=== PATIENT | male | born 1955 | race African-American/Black ===

== ENCOUNTER 2020-07-04 15:48 | Outpatient (REF) | payer MEDICARE, SELFPAY | END 2020-07-04 15:49 | disposition home or self-care (01) | LOC: HO.LAB 15:48 | PROVIDERS: Visit Provider Internal Medicine | DX: Z20.828 Contact with and (suspected) exposure to other viral communicable diseases (principal) | CPT/HCPCS: C9803; U0003 ==

== ENCOUNTER 2022-06-21 09:43 | Outpatient (REF) | payer OTHER, SELFPAY ==
[2022-06-21 10:12] LABS: Estimated Average Glucose 143 mg/dL; Hemoglobin A1c % 6.6 %
== END 2022-06-21 09:44 | disposition home or self-care (01) ==
LOC: HO.LAB 09:43
PROVIDERS: PCP Hospitalist; Visit Provider Hospitalist
DX: E11.8 Type 2 diabetes mellitus with unspecified complications (principal)
CPT/HCPCS: 36415; 83036

== ENCOUNTER 2022-06-28 09:53 | Outpatient (REF) | payer OTHER, SELFPAY ==
[2022-06-28 10:41] LABS: Estimated Average Glucose 143 mg/dL; Hemoglobin A1c % 6.6 %
[2022-06-28 11:08] LABS: Prostate Specific Antigen 1.34 ng/mL (<0.05-4.0)
== END 2022-06-28 09:54 | disposition home or self-care (01) ==
LOC: HO.LAB 09:53
PROVIDERS: PCP Hospitalist; Visit Provider Hospitalist
DX: Z12.5 Encounter for screening for malignant neoplasm of prostate (principal); E11.8 Type 2 diabetes mellitus with unspecified complications
CPT/HCPCS: 36415; 83036; 84153

== ENCOUNTER 2022-07-26 09:03 | Outpatient (REF) | payer OTHER, SELFPAY ==
[2022-07-26 09:25] LABS: MANUAL DIFF FLAG NO
[2022-07-26 10:06] LABS: Basophils Percent Auto 0.4 % (0-2); Eosinophils Absolute Auto 0.1 X10*3/uL (0.0-0.4); Eosinophils Percent Auto 1.3 % (0-4); Hematocrit 45.7 % (42.0-52.0); Hemoglobin 15.3 g/dl (14.0-18.0); Imm Gran Abs Auto 0.01 X10*3/uL (0.00-0.03); Imm Gran Pct Auto 0.2 % (0.0-0.4); Lymphocytes Absolute Auto 1.7 X10*3/uL (1.2-4.9); Mean Corpuscular HGB Conc 33.5 g/dl (31.0-36.0); Mean Corpuscular Hemoglobin 28.5 pg (27.0-33.0); Mean Corpuscular Volume 85.1 fL (80.0-98.0); Mean Platelet Volume 9.9 fL (9.4-12.4); Monocytes Absolute Auto 0.5 X10*3/uL (0.1-1.2); Monocytes Percent Auto 10.4 % (2-11); Neutrophils Absolute Auto 2.3 x10*3/uL (2.0-8.3); Neutrophils Percent Auto 49.7 % (45-73); Platelet Count 229 X10*3/uL (160-400); Red Blood Count 5.37 X10*6/uL (4.60-5.80); Red Cell Distribution Width 13.1 % (11.0-16.0); White Blood Count 4.5 X10*3/uL (4.8-10.8)
[2022-07-26 10:14] LABS: Appearance Urine Clear; Color Urine Yellow; Glucose Urine UA Negative (Negative); Leukocyte Esterase Urine Negative (Negative); Nitrite Urine Negative (Negative); PH 5.5 (5.0-9.0); Specific Gravity - Urine 1.025 (1.005-1.025); Urine Blood Negative (Negative); Urine Ketones Trace mg/dL (Negative); Urine Protein Negative (Neg-Trace)
[2022-07-26 11:08] LABS: Alanine Aminotransferase 22 U/L (0-40); Albumin Level 4.4 g/dL (3.5-5.0); Alkaline Phosphatase 69 U/L (39-117); Anion Gap 14 (12-20); Aspartate Amino Transferase 19 U/L (5-37); Bilirubin Total 0.7 mg/dL (0.0-1.0); Blood Urea Nitrogen 21 mg/dL (9-16); Calcium 9.9 mg/dL (8.4-10.2); Carbon Dioxide 27 mmol/L (22-29); Chloride 103 mmol/L (96-108); Cholesterol 112 mg/dL; Estimated Glomerular Filt Rate > 60; Glucose Random 117 mg/dL (60-115); HDL Cholesterol 31 mg/dL; LDL Cholesterol Calculated 56 mg/dl; Potassium 3.9 mmol/L (3.3-5.1); Prostate Specific Antigen 2.07 ng/mL (<0.05-4.0); Sodium 140 mmol/L (135-145); Total Protein 6.9 g/dL (6.5-8.0); Triglycerides 128 mg/dL
== END 2022-07-26 09:04 | disposition home or self-care (01) ==
LOC: HO.LAB 09:03
PROVIDERS: PCP Hospitalist; Visit Provider Nurse Practitioner Adult Health
DX: Z00.00 Encounter for general adult medical examination without abnormal findings (principal); E78.2 Mixed hyperlipidemia; I10 Essential (primary) hypertension; Z12.5 Encounter for screening for malignant neoplasm of prostate
CPT/HCPCS: 36415; 80053; 80061; 81003; 84153; 85025

== ENCOUNTER → 2022-10-06 15:28 | Outpatient (BNVA) | payer OTHER, SELFPAY | PROVIDERS: PCP Hospitalist; Visit Provider Nurse Practitioner Family | DX: Z12.11 Encounter for screening for malignant neoplasm of colon (principal) | CPT/HCPCS: 99202 ==

== ENCOUNTER 2023-01-10 09:11 | Outpatient (REF) | payer OTHER, SELFPAY ==
[2023-01-10 09:54] LABS: Estimated Average Glucose 137 mg/dL; Hemoglobin A1c % 6.4 %
[2023-01-10 10:15] LABS: Alanine Aminotransferase 25 U/L (0-40); Albumin Level 4.2 g/dL (3.5-5.0); Alkaline Phosphatase 77 U/L (39-117); Anion Gap 12 (12-20); Aspartate Amino Transferase 17 U/L (5-37); Bilirubin Total 0.7 mg/dL (0.0-1.0); Blood Urea Nitrogen 17 mg/dL (9-16); Calcium 9.5 mg/dL (8.4-10.2); Carbon Dioxide 26 mmol/L (22-29); Chloride 107 mmol/L (96-108); Cholesterol 112 mg/dL; Estimated Glomerular Filt Rate > 60; Glucose Random 127 mg/dL (60-115); HDL Cholesterol 31 mg/dL; LDL Cholesterol Calculated 54 mg/dl; Potassium 3.7 mmol/L (3.3-5.1); Sodium 141 mmol/L (135-145); Total Protein 6.9 g/dL (6.5-8.0); Triglycerides 137 mg/dL
[2023-01-10 10:30] LABS: Prostate Specific Antigen Scr 2.58 ng/mL (<0.05-4.0)
[2023-01-10 10:44] LABS: Creatinine Urine 195.35 mg/dL; Microalbum/Creatinine Ratio Ur 7.1 ug/mg cr
== END 2023-01-10 09:12 | disposition home or self-care (01) ==
LOC: HO.LAB 09:11
PROVIDERS: PCP Hospitalist; Visit Provider Hospitalist
DX: Z12.5 Encounter for screening for malignant neoplasm of prostate (principal); I10 Essential (primary) hypertension; E78.2 Mixed hyperlipidemia; E11.8 Type 2 diabetes mellitus with unspecified complications
CPT/HCPCS: 36415; 80053; 80061; 82043; 83036; 84153

== ENCOUNTER 2023-02-13 10:06 | Day surgery (SDC) | payer OTHER, SELFPAY ==
[2023-02-11 15:34] VITALS: BMI 29.8
--- NOTE | 2023-02-12 10:06 | HO.ANESPROP2 ---
HPI - Anesthesia Eval Consult details Narrative: 68yo M for Colonoscopy [facility] Past Medical History Medical History (Updated 02/11/23 @ 15:42 by Edith Donohue, RN) Diabetes mellitus, type II Glaucoma HTN (hypertension) Hyperlipidemia Family History Family History (Updated 10/06/22 @ 15:47 by Sonido Sal) Mother HTN (hypertension) High cholesterol Diabetes Pacemaker Surgical History Surgical History (Updated 10/06/22 @ 15:49 by Sonido Sal) History of surgical procedure on eye proper using laser Social History Social History (Updated 10/06/22 @ 15:45 by Sonido Sal) Household Members: Significant Other Alcohol intake: never Patient Tobacco Use Status: Never used Tobacco Meds Allergies Allergy/AdvReac Type Severity Reaction Status Date / Time No Known Allergies Allergy Verified 10/06/22 15:42 Home Medications Medication Instructions Recorded Confirmed Last Taken Type amlodipine 10 mg tablet 10 mg PO DAILY 10/06/22 Unknown History chlorthalidone 25 mg tablet 25 mg PO DAILY 10/06/22 Unknown History dulaglutide 1.5 mg/0.5 mL mg subcut 10/06/22 Unknown History subcutaneous pen injector (Trulicity) flash glucose sensor (FreeStyle #1 ea 10/06/22 Unknown History Marleen 2 Sensor kit) glimepiride 2 mg tablet 2 mg PO DAILY 10/06/22 Unknown History lisinopril 40 mg tablet 40 mg PO DAILY 10/06/22 Unknown History metformin 1,000 mg tablet 1,000 mg PO BID 10/06/22 Unknown History simvastatin 20 mg tablet 20 mg PO BEDTIME 10/06/22 Unknown History Exam Exam Date and Time: February 12, 2023 1006 Height,Weight and Vital Signs: Height 5 ft 8 in Weight 88.791 kg Pertinent Lab Results Pertinent Lab Results: Laboratory Tests 07/26/22 01/10/23 09:18 09:25 WBC 4.5 L Hgb 15.3 Hct 45.7 Plt Count 229 Sodium 141 Potassium 3.7 Chloride 107 Carbon Dioxide 26 BUN 17 H Creatinine 1.09 Assessment and Plan Assessment Anesthesia Assessment: Chart Reviewed
--- NOTE | 2023-02-13 10:32 | HO.ANESPROP2 ---
[facility] Past Medical History Medical History Diabetes mellitus, type II Glaucoma HTN (hypertension) Hyperlipidemia Family History Family History Mother HTN (hypertension) High cholesterol Diabetes Pacemaker Family history of problems with anesthesia: No Surgical History Surgical History History of surgical procedure on eye proper using laser History of Problems with Anesthesia: No Social History Social History Household Members: Significant Other Alcohol intake: never Patient Tobacco Use Status: Never used Tobacco Advance Directives: No Advance Directives Information Provided: Yes Meds Allergies Allergy/AdvReac Type Severity Reaction Status Date / Time No Known Allergies Allergy Verified 10/06/22 15:42 Active Medications: Current Medications Lactated Ringer's (Lr) 1,000 mls @ 100 mls/hr IVCONT .Q10H SUREKHA Ondansetron HCl (Ondansetron Hcl 4 Mg/2 Ml Vial) 4 mg IVPUSH ONCE PRN PRN Reason: Nausea and Vomiting Home Medications Medication Instructions Recorded Confirmed Last Taken Type amlodipine 10 mg tablet 10 mg PO DAILY 10/06/22 Unknown History chlorthalidone 25 mg tablet 25 mg PO DAILY 10/06/22 Unknown History dulaglutide 1.5 mg/0.5 mL mg subcut 10/06/22 Unknown History subcutaneous pen injector (Trulicity) flash glucose sensor (FreeStyle #1 ea 10/06/22 Unknown History Marleen 2 Sensor kit) glimepiride 2 mg tablet 2 mg PO DAILY 10/06/22 Unknown History lisinopril 40 mg tablet 40 mg PO DAILY 10/06/22 Unknown History metformin 1,000 mg tablet 1,000 mg PO BID 10/06/22 Unknown History simvastatin 20 mg tablet 20 mg PO BEDTIME 10/06/22 Unknown History Exam Exam Date and Time: February 13, 2023 1032 Height,Weight and Vital Signs: Height 5 ft 8 in Weight 88.791 kg Airway Mallampati Class: III TM Dist: >3cm Neck ROM: Full Loose/Missing/Broken Teeth: No Heart: rrr Lungs: clear Assessment and Plan Final Anesthetic Review Family History of Problems with Anesthesia: No History of Problems with Anesthesia: No NPO: Yes ASA Class: II Final Preanesthetic Review: No Changes in Pt Med Stat, Meds/Allgs Chart Reviewed, Consent Obtained/Reviewed and Anes Risks/Benef Reviewed Patient Risk: Intermediate Procedure Risk: Low Anesthetic Plan Anesthetic Plan: MAC: Disposition: Standard PACU
--- NOTE | 2023-02-13 10:53 | MHC.SHP ---
Pre-Procedural Eval Section A Date of Service: 02/13/23 The patient is an INPATIENT: No The History & Physical has been completed within 30 days and I have reviewed it.: No Section B Chief Complaint: screening Relevant Family History (Specify if Yes): No Relevant Social History: None Present Medications: see Short Stay Collaborative assessment Medical History: Significant History ( hypertension, hyperlipidemia, glaucoma, diabetes mellitus) History of Previous Operations: Relevant previous surgery/procedure and date(s) ( history of eye surgery) Allergies: Allergies Allergy/AdvReac Type Severity Reaction Status Date / Time No Known Allergies Allergy Verified 10/06/22 15:42 Review of Systems Sugical H&P ROS: Negative: Constitution, Cardiovascular, Respiratory and Gastrointestinal Exam Surgical H&P Exam: Normal: Heart, Normal: Lungs, Normal: Extremities and Normal: Abdomen Plan Diagnosis/Plan: Unchanged I have reviewed the history and physical and performed a pertinent physical examination on my patient. No changes have occurred unless specified. Time Spent With Patient Time: Total time managing care of this patient today ____ minutes.
[2023-02-13 10:58] VITALS: BP 111/69; PULSE 70; RESP 18; TEMP 36.6; O2SAT 96
--- NOTE | 2023-02-13 11:00 | W.PM.OPN ---
Operative Note Operative Note Date of Service: 02/13/23 Narrative: COLONOSCOPY TILL CECUM WITH SNARE POLYPECTOMY Pre-op diagnosis: colon cancer screening Post-op diagnosis:? colon polyps, diverticulosis, hemorrhoids Endoscopist:? Allen Plunkett MD Anesthesia:?MAC Consent: Indications for the procedure and potential complications of bleeding, perforation, reaction to medications and missed diagnosis were discussed with the patient and informed consent was obtained. Instrument: Olympus PCF H 190 L variable stiffness pediatric colonoscope Monitoring: Vital signs and clinical assessment, intermittent blood pressure monitoring, continuous EKG monitoring, Pulse oximetry and Carbon Dioxide monitoring were done throughout the procedure. Please see anesthesia flowsheet. Colon withdrawl time was 23 minutes. Procedure: The patient was placed in the left lateral decubitis position and pre-procedure medications were administered. After a digital rectal examination of the ano-rectum, the video colonoscope was inserted into the rectum and advanced through the colon to the cecum. The colonoscope was slowly withdrawn in a retrograde panoramic fashion and the colon mucosa was carefully examined including a retroflexed view of the rectum. Findings and interventions are described below. Procedure Difficulty: colon was long and there was some loop formation Findings: Terminal Ileum: Not evaluated Cecum: Normal Ascending Colon: A 2 cms sessile polyp in the distal ascending colon - removed with a hot snare Transverse Colon: A 2 cms sessile polyp in the proximal transverse colon - removed with a hot snare A 10 cms sessile polyp in the mid TC - removed with a hot snare. Descending Colon: Normal Sigmoid Colon: Moderate diverticulosis Rectum: A 15 to 18 mm sessile polyp in the distal rectum - removed with a hot snare Ano-rectum: Moderate internal hemorrhoids Colon preparation: Good after copious irrigation. Impression and Post Procedure Diagnosis: Colonoscopy Findings: Four medium sized polyps removed Moderate diverticulosis seen in the sigmoid colon Moderate hemorrhoids on retroflexed exam. Plan: Await pathology results Patient has an appointment on 02/25/23 in the GI Clinic with Marleni Agrawal FNP-BC. Repeat Colonoscopy interval based on path results - in 3 years if polyps are adenomatous and 10 years if polyps are hyperplastic (adult colonoscope for future colonoscopies). Above findings were reviewed with the patient and colon polyps and diverticulosis handouts were given in the discharge area
[2023-02-13 11:54] VITALS: BP 86/46; PULSE 73; RESP 20; TEMP 36.4; O2SAT 96
[2023-02-13 11:58] VITALS: BP 90/43; PULSE 68; RESP 20; O2SAT 96
[2023-02-13 12:03] VITALS: BP 85/43; PULSE 67; RESP 20; O2SAT 96
[2023-02-13 12:10] VITALS: BP 100/63; PULSE 82; RESP 20; TEMP 36.2; O2SAT 98
== END 2023-02-13 13:00 | disposition home or self-care (01) ==
PROVIDERS: PCP Hospitalist; Visit Provider Internal Medicine Gastroenterology
PROC: 0DJD8ZZ Inspection of Lower Intestinal Tract, Via Natural or Artificial Opening Endoscopic (ICD-10-PCS; CPT 45378; principal; 2023-02-13 11:50)
DX: Z12.11 Encounter for screening for malignant neoplasm of colon (principal); D12.2 Benign neoplasm of ascending colon; D12.3 Benign neoplasm of transverse colon; D12.8 Benign neoplasm of rectum; K57.30 Diverticulosis of large intestine without perforation or abscess without bleeding; K64.8 Other hemorrhoids; E11.9 Type 2 diabetes mellitus without complications; I10 Essential (primary) hypertension; E78.5 Hyperlipidemia, unspecified; Z79.85 Long-term (current) use of injectable non-insulin antidiabetic drugs; Z79.84 Long term (current) use of oral hypoglycemic drugs; Z79.899 Other long term (current) drug therapy
CPT/HCPCS: 45385; 45380; 82947; 88305

== ENCOUNTER 2023-02-25 16:10 | Outpatient (AMB) | payer OTHER, SELFPAY ==
[2023-02-25 16:15] VITALS: BP 107/57; PULSE 80; BMI 29.5
--- NOTE | 2023-02-25 16:15 | A.OFFVIS_ITS ---
Intake Vital Signs 02/25/23 16:15 Height 5 ft 8 in Weight 194 lb 0.108 oz BMI 29.5 BP 107/57 L Blood Pressure Location Lt brachial Position Sitting Pulse 80 Intake Visit Reasons: S/P [place] screening; Dr. Plunkett Intake Note: Don presents in office as a est.patient for a post-op for colo pt got it done 02.13.23 PT CC: pt reports having no concerns pt denies any other GI Issues [employer] Required: No Accompanied by: Self / Same As Patient Allergies No Known Allergies Allergy (Verified 02/25/23 16:15) HPI S/P [place] screening; Dr. Plunkett HPI Details LAST VISIT Screen for colon cancer Patient denies any GI, cardiac or respiratory symptoms.? Denies any issues with anesthesia in the past.? Denies any history of sleep apnea.? Scheduled for home sleep study test to rule out RAD. No history infectious diseases in the past or present.? On low-dose aspirin. ? No family or personal history of colon cancer or polyps.? Patient denies melena, hematochezia, unintentional weight loss or ribbon like stools.? Discussed at length the pre-procedure,? prep, diet & medications as well as what to expect prior, during and after the procedure.?? Stressed the importance of good bowel prep. ?Recommended the use of Vaseline or Calmoseptine OTC & baby wipes with bowel movements to promote comfort.? ?Patient verbalizes understanding and agrees to plan of care.?He was given the opportunity to ask questions and all questions answered.? We will see him after the procedure.? Plan Medications New bisacodyl (Dulcolax (bisacodyl)) take 2 tabs at noon the day before your colonoscopy 10 mg (2 x 5 mg) PO ONCE 2 tabs 0RF 1 day Z12.11 polyethylene glycol 3350 (Miralax) As directed by gastroenterology department at [facility] 238 grams PO ONCE 238 grams 0RF Z12.11 COLONOSCOPY SCREENING Findings: Terminal Ileum: Not evaluated Cecum:? Normal Ascending Colon:? A 2 cms sessile polyp in the distal? ascending colon -? removed with a hot snare Transverse Colon:? A 2 cms sessile polyp in the proximal? transverse colon -? removed with a hot snare A 10 cms sessile polyp in the mid TC - removed with a hot snare. Descending Colon:? Normal Sigmoid Colon:? Moderate diverticulosis Rectum:? A 15 to 18 mm sessile polyp in the distal rectum - removed with a hot snare Ano-rectum:? Moderate internal hemorrhoids Colon preparation:? Good? after copious irrigation. Impression and Post Procedure Diagnosis: Colonoscopy Findings: Four medium sized polyps removed Moderate diverticulosis seen in the sigmoid colon Moderate hemorrhoids on retroflexed exam. Plan: Repeat Colonoscopy interval based on path results - in 3 years if polyps are adenomatous and 10 years if polyps are hyperplastic (adult colonoscope for future colonoscopies) PATHOLOGY RESULTS Diagnosis A.? Colon, ascending, polyp:? Tubular adenoma; negative for high-grade dysplasia and carcinoma.? B.? Colon, transverse, polyp:? Tubular adenoma; negative for high-grade dysplasia and carcinoma.? C.? Colon, rectal polyp:? Tubular adenoma; negative for high-grade dysplasia and carcinoma.? TODAY'S VISIT: Patient is here today for follow-up and to discuss colonoscopy results. Patient denies any ill effects from the, seizure or procedure. Reports to be feeling well. Denies any GI concerning symptoms. Patient has questions regarding diet. Diagnosed with diverticulosis, moderate internal hemorrhoids and for polyps. Biopsy showed all for tubular adenoma without high-grade dysplasia or carcinoma. Patient denies any melena, hematochezia, unintentional weight loss or ribbon like stools. Denies any dyspepsia, dysphagia or odynophagia. ON LICENSE OF [facility] Medical History (Updated 02/25/23 @ 18:28 by Marleni Agrawal, [facility]) Diabetes mellitus, type II Diverticulosis Glaucoma HTN (hypertension) Hyperlipidemia Internal hemorrhoids without complication Tubular adenoma Surgical History History of surgical procedure on eye proper using laser Hx of colonoscopy Family History Mother HTN (hypertension) High cholesterol Diabetes Pacemaker Social History Household Members: Significant Other Alcohol intake: never Patient Tobacco Use Status: Never used Tobacco Review of Systems Const Denies weight gain and Denies weight loss ENT Reports no additional complaints, Denies dysphagia and Denies odynophagia Card Reports no additional complaints Resp Reports no additional complaints GI Denies abdominal pain, Denies belching, Denies melena, Denies bloating, Denies change in bowel habits, Denies dysphagia, Denies excessive flatus, Denies dyspepsia, Denies heartburn, Denies diarrhea, Denies loose stools, Denies nausea, Denies odynophagia and Denies vomiting Reports no additional complaints Musc Reports no additional complaints Neuro Reports no additional complaints Psych Reports no additional complaints Endo Reports no additional complaints Physical Exam Vital Signs: Last Vital Signs Pulse 80 02/25/23 16:15 BP 107/57 L 02/25/23 16:15 BMI result Body Mass Index 29.5 Const General: healthy appearing, no acute distress and well developed Nutritional Appearance: obese Orientation/consciousness: patient oriented x3 HEENT Head: Yes normal to inspection, Yes normocephalic and Yes atraumatic Face and sinus: Yes normal facial exam Mouth: Normal oral and palatal mucosa present Throat: Yes posterior oropharynx normal, Yes tonsils normal and Yes uvula midline Eyes General: appearance normal, both eyes and all related structures Neck Neck: Yes normal visual inspection, Yes full ROM and Yes trachea midline Thyroid: Thyroid normal Resp Effort & Inspection: normal respiratory effort, able to speak in complete sentences, no tracheal deviation and symmetric chest movement Auscultation: clear to auscultation bilaterally Cardio Rate: regular rate Heart sounds: S1 normal heart sound present and S2 normal heart sound present GI Inspection: Yes normal to inspection, No distended and Yes obesity Palpation (GI): Soft to palpation, not firm, nontender and No hepatosplenomegaly present Auscultation: normal bowel sounds General: Yes no CVA tenderness Back/Spine/Pelvis Back: no CVA tenderness Skin General skin exam: elasticity normal, turgor normal and dry skin Neuro General: patient oriented x3 Psych Appearance: grossly normal Mental Status: mental status grossly normal Speech and movement: Normal speech and movement present Affect: normal affect Assessment & Plan Assessment & Plan (1) Internal hemorrhoids without complication: Code(s): K64.8 - Other hemorrhoids Plan: Moderate internal hemorrhoids. Patient denies any rectal pain, hematochezia. High-fiber diet, increase activity and fluid intake. Sitz baths as needed (2) Diverticulosis: Code(s): K57.90 - Diverticulosis of intestine, part unspecified, without perforation or abscess without bleeding Plan: Moderate diverticulosis of sigmoid colon. Patient will need to increase fiber in his diet. Went over high-fiber diet. List of food high in fiber given to patient. (3) Tubular adenoma: Code(s): D36.9 - Benign neoplasm, unspecified site Plan: Tubular adenoma found without high-grade dysplasia carcinoma. Patient will need to repeat colonoscopy in 3 years. (4) Status post colonoscopy: Code(s): Z98.890 - Other specified postprocedural states Plan: Patient denies any ill effects from the prep, anesthesia or procedure itself. Patient was found to have tubular adenoma without high-grade dysplasia or carcinoma. Colonoscopy in 3 years. High-fiber diet discussed with patient. Patient will follow-up with us on as needed basis. He is agreeable to this plan and verbalizes understanding of instructions. He was given the opportunity to ask questions and all questions answered. Thank you for allowing me to participate in his care Coding Level of Care Code Est Pt Level 3 (12854) Diagnoses Internal hemorrhoids without complication K64.8 Diverticulosis K57.90 Tubular adenoma D36.9 Status post colonoscopy Z98.890 Time Spent (min) 25 Comment 15 minutes spent with patient and additional 10 minutes spent reviewing his records
== END 2023-02-25 16:37 | disposition home or self-care (01) ==
PROVIDERS: Visit Provider Nurse Practitioner Family
DX: K64.8 Other hemorrhoids (principal); K57.90 Diverticulosis of intestine, part unspecified, without perforation or abscess without bleeding; D36.9 Benign neoplasm, unspecified site; Z98.890 Other specified postprocedural states
CPT/HCPCS: 99213

== ENCOUNTER → 2023-02-25 16:10 | Outpatient (BNVA) | payer OTHER, SELFPAY | PROVIDERS: Visit Provider Nurse Practitioner Family | DX: K64.8 Other hemorrhoids (principal); K57.90 Diverticulosis of intestine, part unspecified, without perforation or abscess without bleeding; D36.9 Benign neoplasm, unspecified site; Z98.890 Other specified postprocedural states | CPT/HCPCS: 99212 ==

== ENCOUNTER 2023-07-11 09:32 | Outpatient (REF) | payer OTHER, SELFPAY ==
[2023-07-11 10:27] LABS: Estimated Average Glucose 151 mg/dL; Hemoglobin A1c % 6.9 % (<6.0)
[2023-07-11 10:40] LABS: Creatinine Urine 141.85 mg/dL; Microalbum/Creatinine Ratio Ur 9.8 ug/mg cr (<30)
[2023-07-11 10:42] LABS: Alanine Aminotransferase 22 U/L (0-40); Albumin Level 4.4 g/dL (3.5-5.0); Alkaline Phosphatase 73 U/L (39-117); Anion Gap 12 (12-20); Aspartate Amino Transferase 16 U/L (5-37); Bilirubin Total 0.4 mg/dL (0.0-1.0); Blood Urea Nitrogen 17 mg/dL (9-16); Calcium 9.9 mg/dL (8.4-10.2); Carbon Dioxide 28 mmol/L (22-29); Chloride 104 mmol/L (96-108); Cholesterol 105 mg/dL (<200); Estimated Glomerular Filt Rate > 60; Glucose Random 109 mg/dL (60-115); HDL Cholesterol 33 mg/dL (>40); LDL Cholesterol Calculated 50 mg/dL (<100); Potassium 3.8 mmol/L (3.3-5.1); Sodium 140 mmol/L (135-145); Total Protein 7.4 g/dL (6.5-8.0); Triglycerides 110 mg/dL (<150)
== END 2023-07-11 09:33 | disposition home or self-care (01) ==
LOC: HO.LAB 09:32
PROVIDERS: Visit Provider Hospitalist
DX: E11.9 Type 2 diabetes mellitus without complications (principal); E78.2 Mixed hyperlipidemia; I10 Essential (primary) hypertension
CPT/HCPCS: 36415; 80053; 80061; 82043; 82570; 83036

== ENCOUNTER 2024-01-09 09:29 | Outpatient (REF) | payer OTHER, SELFPAY ==
[2024-01-09 11:16] LABS: Estimated Average Glucose 166 mg/dL; Hemoglobin A1c % 7.4 % (<6.0)
[2024-01-09 12:01] LABS: Prostate Specific Antigen Scr 2.15 ng/mL (<0.05-4.0)
== END 2024-01-09 09:30 | disposition home or self-care (01) ==
LOC: HO.LAB 09:29
PROVIDERS: PCP Hospitalist; Visit Provider Hospitalist
DX: Z00.00 Encounter for general adult medical examination without abnormal findings (principal); E11.8 Type 2 diabetes mellitus with unspecified complications; Z12.5 Encounter for screening for malignant neoplasm of prostate
CPT/HCPCS: 36415; 83036; 84153

== ENCOUNTER 2024-01-12 04:39 | Emergency (ER) | payer OTHER, SELFPAY ==
--- NOTE | ~2024-01-12 | CT_ITS ---
EXAMINATION: CT ABDOMEN AND PELVIS WITH CONTRAST CLINICAL INFORMATION: Abdominal distention and pain. Frequent urination. COMPARISON: None available. TECHNIQUE: Multidetector CT volumetric acquisition of the abdomen and pelvis was performed after the administration of 85 mL of intravenous Omnipaque 350. The data set was reformatted in the sagittal and coronal planes and reviewed on an independent workstation. This CT examination was performed using dose optimization techniques as appropriate, variously including the following: *Automated exposure control *Adjustment of mA and/or kV according to patient size (this includes techniques or standardized protocols for targeted exams where dose is matched to indication/reason for exam; i.e. extremities or head) *Use of iterative reconstruction technique DLP: 659.68 mGy-cm. FINDINGS: LOWER CHEST: Mild dependent atelectasis in the lung bases bilaterally. LIVER, GALLBLADDER, BILIARY TREE: Liver normal size and attenuation. No focal cystic or solid mass or intra-or extrahepatic ductal dilatation. Hepatic and portal veins patent. Gallbladder partially distended and within normal limits. PANCREAS: There is very subtle fat stranding and edema seen surrounding the pancreatic head, best appreciated on the coronal images (example series 7, image 47 through 54), raising the suspicion of subtle acute pancreatitis. No definite focal pancreatic mass or ductal dilatation is seen. SPLEEN: Normal size and appearance. Splenic vein patent. ADRENAL GLANDS AND KIDNEYS: Adrenal glands normal. Kidneys bilaterally symmetric in size and function. There is a 0.7 x 0.6 cm fluid attenuation mass in the mid to lower pole of the left kidney (series 4, image 268) and a 0.6 cm diameter fluid attenuation mass in the mid to lower pole of the right kidney (series 4, image 283), consistent with benign cysts, which warrant no additional imaging follow-up. No suspicious focal renal mass, hydronephrosis, nephrolithiasis or perinephric stranding. URETERS AND BLADDER: Ureters decompressed and within normal limits. Bladder partially distended and within normal limits. PELVIC ORGANS: Mildly enlarged. Lobulated median lobe of the prostate gland is seen invaginating upon the bladder base. GASTROINTESTINAL TRACT: Normal. Small and large bowel loops decompressed. The cecum is on a mobile mesentery and is located in the right mid flank. Appendix normal. LYMPHOVASCULAR STRUCTURES: Abdominal aorta normal in caliber. There is mild atherosclerotic calcification of the distal abdominal aorta and iliac arteries. No periaortic collections. No abdominal or pelvic adenopathy or free fluid collection. BONES: There is a transitional vertebral body at the lumbosacral junction with partial lumbar localization of the S1 segment. CT/CT abdomen pelvis w IV con IMPRESSION: * Subtle fat stranding and edema is seen surrounding the pancreatic head, raising the suspicion of subtle acute pancreatitis. Clinical and lab correlation requested. * No evidence of nephrolithiasis or hydroureteronephrosis. * Mildly enlarged prostate gland impresses upon the bladder base. Bladder otherwise grossly unremarkable. * Small bilateral renal cysts, which warrant no additional imaging follow-up. * Mild atherosclerotic calcifications of the distal abdominal aorta and iliac arteries.
[2024-01-12 05:06] VITALS: BP 153/81; PULSE 84; RESP 16; TEMP 36.7; O2SAT 97; BMI 30.8
[2024-01-12 05:22] LABS: MANUAL DIFF FLAG NO
[2024-01-12 05:23] LABS: Basophils Percent Auto 0.4 % (0-2); Eosinophils Absolute Auto 0.1 X10*3/uL (0.0-0.4); Eosinophils Percent Auto 1.1 % (0-4); Hematocrit 43.8 % (42.0-52.0); Hemoglobin 15.2 g/dl (14.0-18.0); Imm Gran Abs Auto 0.02 X10*3/uL (0.00-0.03); Imm Gran Pct Auto 0.2 % (0.0-0.4); Lymphocytes Absolute Auto 1.9 X10*3/uL (1.2-4.9); Lymphocytes Percent Auto 19.4 % (20-40); Mean Corpuscular HGB Conc 34.7 g/dl (31.0-36.0); Mean Corpuscular Hemoglobin 29.2 pg (27.0-33.0); Mean Corpuscular Volume 84.2 fL (80.0-98.0); Mean Platelet Volume 9.5 fL (9.4-12.4); Monocytes Absolute Auto 0.9 X10*3/uL (0.1-1.2); Monocytes Percent Auto 8.8 % (2-11); Neutrophils Percent Auto 70.1 % (45-73); Platelet Count 191 X10*3/uL (160-400); Red Cell Distribution Width 13.2 % (11.0-16.0)
[2024-01-12 05:34] LABS: Anion Gap 14 (12-20); Blood Urea Nitrogen 16 mg/dL (9-16); Calcium 10.2 mg/dL (8.4-10.2); Carbon Dioxide 26 mmol/L (22-29); Chloride 103 mmol/L (96-108); Creatinine Clr Calc Pharmacy 65.1; Estimated Glomerular Filt Rate 60; Glucose Random 202 mg/dL (60-115); Sodium 139 mmol/L (135-145)
[2024-01-12 07:27] VITALS: BP 140/85; PULSE 85; RESP 18; O2SAT 97
[2024-01-12 07:41] LABS: Appearance Urine Clear; Color Urine Yellow; Glucose Urine UA 250 mg/dL (Negative); Leukocyte Esterase Urine Negative (Negative); Nitrite Urine Negative (Negative); PH 6.5 (5.0-9.0); Specific Gravity - Urine 1.025 (1.005-1.025); Urine Blood Negative (Negative); Urine Ketones Trace mg/dL (Negative); Urine Protein Negative (Neg-Trace)
--- NOTE | 2024-01-12 07:49 | ED_ITS ---
HPI - Abdominal Pain General Chief Complaint: Abdominal Pain Stated Complaint: stomach pain Time Seen by Provider: 01/12/24 07:21 Source: patient, RN notes reviewed and old records reviewed Mode of arrival: ambulatory History of Present Illness ED Provider: Jennifer Johansen PA-C HPI narrative: 68-year-old male with a past medical history diverticulosis, diabetes, HLD, HTN, presenting to the ED complaining of abdominal discomfort and distention x4 days. Admits pain radiates to lower back, worse with eating. Denies fever, chills, nausea, vomiting, diarrhea, constipation, dysuria/hematuria. Admits to taking Tylenol. Denies NSAID use or EtOH Related Data Home Medications ?Medication ?Instructions ?Recorded ?Confirmed amlodipine 10 mg tablet 10 mg PO DAILY 10/06/22 chlorthalidone 25 mg tablet 25 mg PO DAILY 10/06/22 dulaglutide 1.5 mg/0.5 mL mg subcut 10/06/22 subcutaneous pen injector (TOTEMS (formerly Nitrogram)) flash glucose sensor (FreeStyle #1 ea 10/06/22 Marleen 2 Sensor kit) glimepiride 2 mg tablet 2 mg PO DAILY 10/06/22 lisinopril 40 mg tablet 40 mg PO DAILY 10/06/22 metformin 1,000 mg tablet 1,000 mg PO BID 10/06/22 simvastatin 20 mg tablet 20 mg PO BEDTIME 10/06/22 Allergies Allergy/AdvReac Type Severity Reaction Status Date / Time No Known Allergies Allergy Verified 01/12/24 05:08 Review of Systems Review of Systems Constitutional: No Fever, No Chills ENT/Mouth: No Ear Pain, No Nasal Congestion, No sore throat, No Rhinorrhea, No Swallowing Difficulty Cardiovascular: No Chest Pain, No SOB Respiratory: No Cough, No Sputum, No Wheezing Gastrointestinal: No Nausea, No Vomiting, No Diarrhea, No Constipation, + Abdominal pain Genitourinary: No Dysuria, No Urinary Frequency, No Hematuria, No Flank Pain Musculoskeletal: +back pain, No Myalgias, No Joint Swelling Skin: No Skin Lesions, No rash Neuro: No Weakness Yes all other systems are reviewed and are negative Constitutional: Reports as per [facility] Past Medical History Attestation statement: The following information was validated with the patient. Source: old records reviewed Medical History Tubular adenoma Diverticulosis Internal hemorrhoids without complication Glaucoma Diabetes mellitus, type II Hyperlipidemia HTN (hypertension) Surgical History Hx of colonoscopy History of surgical procedure on eye proper using laser Family History Family History Mother HTN (hypertension) High cholesterol Diabetes Pacemaker Social History Social History Household Members: Significant Other Alcohol intake: never Patient Tobacco Use Status: Never used Tobacco Smoked in Last 30 Days: No Use of substances other than those prescribed or required for medical reasons: No Advance Directives: No Advance Directives Information Provided: Yes Do you have a plan to hurt others: No Plan Physical Exam ED Vital Signs: Vital Signs - 24 hr 01/12/24 05:06 01/12/24 07:27 01/12/24 08:05 Temperature 98.0 F Pulse Rate 84 85 82 Respiratory Rate 16 18 16 Blood Pressure 153/81 H 140/85 H 119/61 Pulse Oximetry 97 97 96 Oxygen Delivery Method Room Air Room Air Room Air 01/12/24 09:46 01/12/24 11:00 Temperature Pulse Rate 85 75 Respiratory Rate 16 16 Blood Pressure 120/74 130/76 Pulse Oximetry 97 97 Oxygen Delivery Method Room Air Room Air BMI result Body Mass Index 30.8 Const General: cooperative, healthy appearing and no acute distress Orientation/consciousness: patient oriented x3 Limitations: no limitations HENMT Head: Yes normal to inspection and Yes atraumatic Ears: hearing grossly normal bilaterally General nose exam: Normal external nose present Face and sinus: Yes normal facial exam Eyes General: appearance normal, both eyes and all related structures EOM: EOMs intact bilaterally Neck Neck: Yes normal visual inspection and Yes no meningeal signs Resp Effort & Inspection: normal respiratory effort and no respiratory distress Auscultation: clear to auscultation bilaterally Cardio Rate: regular rate Heart sounds: S1 normal heart sound present and S2 normal heart sound present GI Inspection: Yes distended Palpation (GI): Soft to palpation, Tenderness to palpation present (GI) in the epigastrum and in the RUQ; with no rebound tenderness, no guarding and not rigid General: Yes no CVA tenderness Back/Spine/Pelvis Back: no CVA tenderness Skin Rashes: no rashes Wounds: no wounds Neuro General: patient oriented x3, tone normal and no meningeal signs Cranial nerves: Yes CN's II-XII intact bilaterally Gait exam (Neuro): Normal gait present Extrem General: Yes normal to inspection Course Course Course Narrative: -1044--no leukocytosis. Labs otherwise reassuring. UA negative CT abdomen pelvis w IV con IMPRESSION: * Subtle fat stranding and edema is seen surrounding the pancreatic head, raising the suspicion of subtle acute pancreatitis. Clinical and lab correlation requested. * No evidence of nephrolithiasis or hydroureteronephrosis. * Mildly enlarged prostate gland impresses upon the bladder base. Bladder otherwise grossly unremarkable. * Small bilateral renal cysts, which warrant no additional imaging follow-up. * Mild atherosclerotic calcifications of the distal abdominal aorta and iliac arteries. -on re-evaluation patient sleeping, reports symptomatic improvement. On palpation abdomen soft with mild epigastric/RUQ tenderness. patient denies ETOH use since . > will obtain triglycerides and re-evaluate. Patient does not meet admission criteria based on Bridgette's criteria -1137--triglycerides elevated to 176. On re-evaluation patient reports symptomatic improvement. Discussed results. Patient comfortable with discharge home with pain control and close GI follow-up. He verbalized understanding. Discussed clear liquid diet. Medical Decision Making Medical Decision Making [facility] Narrative: 68-year-old male with a past medical history diverticulosis, diabetes, HLD, HTN, presenting to the ED complaining of abdominal discomfort and distention x4 days. On exam vital signs stable, NAD, nontoxic appearing, abdomen distended with upper tenderness to palpation, no rebound or guarding, no CVAT. Concern for PUD/perforation vs pancreatitis vs cholecystitis/lithiasis. Lower suspicion for renal stone/pyelo, diverticulitis or appendicitis. Plan: Labs, UA, CT AP, IVF, pain management, re-evaluate Please refer to course for remaining clinical decision making, interpretation of labs/imaging results, and discussions with consultants and/or family members. Differential Diagnosis Differential Diagnoses: The differential diagnosis associated with the presentation includes As above Admission/Observation Consideration of admission/observation: Escalation of care including admission/observation considered Lab Data [facility] Lab Attestation statement: I reviewed the patient's lab results. 01/12/24 05:16 01/12/24 05:16 Labs: Lab Results 01/12/24 01/12/24 Range/Units 05:16 07:32 WBC 10.0 (4.8-10.8) X10*3/uL RBC 5.20 (4.60-5.80) X10*6/uL Hgb 15.2 (14.0-18.0) g/dl Hct 43.8 (42.0-52.0) % MCV 84.2 (80.0-98.0) fL MCH 29.2 (27.0-33.0) pg MCHC 34.7 (31.0-36.0) g/dl RDW 13.2 (11.0-16.0) % Plt Count 191 (160-400) X10*3/uL MPV 9.5 (9.4-12.4) fL Immature Gran % (Auto) 0.2 (0.0-0.4) % Neut % (Auto) 70.1 (45-73) % Lymph % (Auto) 19.4 L (20-40) % [place] % (Auto) 8.8 (2-11) % Eos % (Auto) 1.1 (0-4) % Baso % (Auto) 0.4 (0-2) % Lymph # (Auto) 1.9 (1.2-4.9) X10*3/uL [place] # (Auto) 0.9 (0.1-1.2) X10*3/uL Eos # (Auto) 0.1 (0.0-0.4) X10*3/uL Baso # (Auto) 0.0 (0.0-0.2) X10*3/uL Abs Immat Gran (auto) 0.02 (0.00-0.03) X10*3/uL Absolute Neuts (auto) 7.0 (2.0-8.3) x10*3/uL Absolute Nucleated RBC 0.000 (0.0-0.012) X10*3/uL Nucleated RBC % (auto) 0.0 (0.0-0.2) /100WBC Sodium 139 (135-145) mmol/L Potassium 4.0 (3.3-5.1) mmol/L Chloride 103 (96-108) mmol/L Carbon Dioxide 26 (22-29) mmol/L Anion Gap 14 (12-20) BUN 16 (9-16) mg/dL Creatinine 1.21 (0.5-1.4) mg/dL Estim Creat Clear Calc 65.1 Estimated GFR 60 Random Glucose 202 H (60-115) mg/dL Calcium 10.2 (8.4-10.2) mg/dL Magnesium 1.7 (1.6-2.6) mg/dL Total Bilirubin 0.6 (0.0-1.0) mg/dL Direct Bilirubin 0.3 (0.0-0.5) mg/dL AST 16 (5-37) U/L ALT 26 (0-40) U/L Alkaline Phosphatase 97 (39-117) U/L Total Protein 7.8 (6.5-8.0) g/dL Albumin 4.5 (3.5-5.0) g/dL Triglycerides 176 H (<150) mg/dL Lipase 76 (8-78) U/L Urine Color Yellow Urine Appearance Clear Urine pH 6.5 (5.0-9.0) Ur Specific [place] 1.025 (1.005-1.025) Urine Protein Negative (Neg-Trace) mg/dL Urine Glucose (UA) 250 H (Negative) mg/dL Urine Ketones Trace (Negative) mg/dL Urine Blood Negative (Negative) Urine Nitrite Negative (Negative) Ur Leukocyte Esterase Negative (Negative) Independent Interpretation I performed an independent interpretation of an: CT Scan Radiology Impression Discussion of test interpretation with radiology: I have reviewed the radiologist's reading. External Record Review External record reviewed: Inpatient record, Office record, Outpatient record, Prior outpatient labs, Prior outpatient radiology, Primary care record and Outside ED record Tests considered The following testing was considered but not selected: As above Prescription Management I considered prescription management with: Pain Medication and Other Chronic Conditions Patient?s care impacted by: Diabetes Medications Administered Discontinued Medications Generic Name Dose Route Start Last Admin Trade Name Freq PRN Reason Stop Dose Admin Sodium Chloride 1,000 mls @ 999 mls/hr 01/12/24 08:00 01/12/24 09:22 Ns IV 01/12/24 09:00 Infused .Q1H1M SUREKHA Infusion Iohexol 85 ml 01/12/24 09:07 01/12/24 09:16 Iohexol 350 Mg/Ml 100 Ml Infus..Btl IV 01/12/24 09:08 85 ml ONCE ONE Administration Morphine Sulfate 2 mg 01/12/24 07:49 01/12/24 08:09 Morphine Sulfate 2 Mg/Ml Cartridge IVPUSH 01/12/24 07:50 2 mg ONCE ONE Administration Protocol Morphine Sulfate 4 mg 01/12/24 09:23 01/12/24 09:46 Morphine Sulfate 4 Mg/Ml Cartridge IVPUSH 01/12/24 09:24 4 mg ONCE ONE Administration Protocol Critical Care Time Critical Care Time Critical Care Time: Yes Total Critical Care Time: 45 Attestation: I have personally provided critical care time exclusive of time spent on separately billable procedures. Time includes review of lab data, radiology results, discussion with consultants, and monitoring for potential decompensation. Intervention performed as documented. Discharge Plan Discharge Clinical Impression: Acute pancreatitis Patient Disposition: Home, Self-Care Prescriptions: No Action lisinopril 40 mg tablet 40 mg PO DAILY metformin 1,000 mg tablet 1,000 mg PO BID simvastatin 20 mg tablet 20 mg PO BEDTIME amlodipine 10 mg tablet 10 mg PO DAILY glimepiride 2 mg tablet 2 mg PO DAILY chlorthalidone 25 mg tablet 25 mg PO DAILY Trulicity 1.5 mg/0.5 mL pen injector subcut (DME) FreeStyle Marleen 2 Sensor Kit See Rx Instructions .ROUTE .MEDSUPPLY Qty: 1 Rx Instructions: As directed Referrals: [facility] [Provider Group] - 3 days Darshana Sousa MD [Primary Care Provider] - 2 days Print Language: Upper Sorbian
[2024-01-12 07:57] LABS: Alanine Aminotransferase 26 U/L (0-40); Albumin Level 4.5 g/dL (3.5-5.0); Alkaline Phosphatase 97 U/L (39-117); Aspartate Amino Transferase 16 U/L (5-37); Bilirubin Direct 0.3 mg/dL (0.0-0.5); Bilirubin Total 0.6 mg/dL (0.0-1.0); Lipase 76 U/L (8-78); Magnesium 1.7 mg/dL (1.6-2.6); Total Protein 7.8 g/dL (6.5-8.0)
[2024-01-12 08:05] VITALS: BP 119/61; PULSE 82; RESP 16; O2SAT 96
[2024-01-12] MEDS: Morphine Sulfate 2 MG/ML CARTRIDGE IVPUSH (08:09)
[2024-01-12] MEDS: 0.9 % Sodium Chloride 1,000 ML 999 ML IV (08:09)
[2024-01-12] MEDS: iohexoL 350 MG/ML 100 ML INFUS..BTL 85 ML IV (09:16)
[2024-01-12 09:46] VITALS: BP 120/74; PULSE 85; RESP 16; O2SAT 97
[2024-01-12] MEDS: Morphine Sulfate 4 MG/ML CARTRIDGE IVPUSH (09:46)
[2024-01-12 11:00] VITALS: BP 130/76; PULSE 75; RESP 16; O2SAT 97
[2024-01-12 11:29] LABS: Triglycerides 176 mg/dL (<150)
[2024-01-12 12:08] VITALS: BP 130/76; PULSE 75; RESP 16; TEMP 36.7; O2SAT 97
--- OUTSIDE RECORDS SUMMARY | 2024-01-15 09:44 | XMS_ITS | Patient Health Record ---
Author Organization [facility] Address [address] [place] [address] Care Team Providers Care Ticket Scheduler Name Role Phone BABS SANABRIA Primary Care Provider ALLERGIES No Known Allergies REASON FOR REFERRAL No Information MEDICATIONS Medication SIG (Take, Route, Frequency, Duration) Notes Start Date End Date Status metFORMIN HCl 1000 MG TAKE 1 TABLET TWIC E DAILY WITH MEALS for 90 Active Lisinopril 40 MG 1 tablet Orally Once a day for 90 days Active Trulicity 3 MG/0.5ML inject 3 mg Subcuta neous once a week for 30 days Active Simvastatin 20 MG 1 tablet in the even ing Orally Once a day for 90 days Active amLODIPine Besylate 10 MG 1 tablet Orall y Once a day for 90 days Active Glimepiride 2 MG TAKE 1 TABLET DAILY WITH BREAKFAST OR FIRST MAIN MEAL OF THE DAY for 90 days Active FreeStyle Marleen 14 Day [place] - as directed four times a day for 30 days 07/30/2022 Active Fluticasone Propionate 50 MCG/ACT 1 spray in each nostril Nasally Once a day for 90 days 09/01/2023 Active Chlorthalidone 25 MG 1/2 tablet Orally o nce a day for 90 days 01/13/2023 Active Blood Pressure - as directed once a d ay for 30 days 03/01/2021 Active Latanoprost 0.005 % 1 drop into affected eye in the evening Ophthalmic Once a day Active FreeStyle Marleen 2 Sensor - USE DIRECT ED CHANGE EVERY 14 DAYS for 90 days Active IMMUNIZATIONS Vaccine Route Administration Date Status Comme nts COVID Unknown 11/21/2020 Administered Pfizer COVID Moderna Unknown 10/23/2020 Administered COVID Moderna Unknown 12/04/2021 Administered Flu Unknown 04/27/2023 Administered Flu High-Dose Unknown 05/13/2022 Administered Influenza (split), seasonal, intradermal, preservative free Unknown 05/04/2021 Administered Shingrix Unknown 07/06/2022 Administered Shingrix Unknown 03/02/2023 Administered SOCIAL HISTORY Tobacco Use: Social History Observation Description Date Details (start date - stop date) Never Smoker NA - NA Sex Assigned At : Social History Observation Description Sex Assigned At Unknown Tobacco Use/Smoking Question Answer Notes Are you a nonsmoker Alcohol Screen (Audit-C) Question Answer Notes Did you have a drink containing alcohol in the p ast year? No Points 0 Interpretation Negative PROBLEMS Problem Type ICD Code Onset Dates Problem Status W/U Status Risk SNOMED Code Notes Problem Type 2 diabetes mellitus with unspecified complications (E11.8) Active confirmed 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 2 diabetes mellitus (077539045) Problem Mixed hyperlipidemia (E78.2) Active confirmed Mixed hyperlipidemia (685085331) Problem Sleep apnea, unspecified (G47.30) Active confirmed Sleep apnea (78248307) Problem Unspecified glaucoma (H40.9) Active confirmed Glaucoma (97970816) Problem Essential (primary) hypertension (I10) Active confirmed Essential hypertension (41514895) Problem Other obstructive and reflux uropathy (N13.8) Active confirmed Obstructive uropathy (9028029) VITAL SIGNS Heart Rate 77 /min 09/01/2023 Temperature 97.6 degrees Fahrenheit 09/01/2023 Blood pressure diastolic 70 mm Hg 09/01/2023 Oximetry 97 % 09/01/2023 Height 67 in 09/01/2023 Blood pressure systolic 136 mm Hg 09/01/2023 Weight 204 lbs 09/01/2023 BMI 31.95 kg/m2 09/01/2023 Encounters Encounter Location Date Provider Diagnosis [address] [place] [address] 01/15/2024 BRICE GUL [facility] [address] [place] [address] 07/16/2023 BABS BETTENCOURT Type 2 diabetes mani itus with unspecified complications E11.8 ; Encounter for general adult medical examination without abnormal findings Z00.00 ; Essential (primary) hypertension I10 ; Mixed hyperlipidemia E78.2 and Sleep apnea, unspecified G47.30 [facility] [address] [place] [address] 09/01/2023 [facility] Postnasal drip R09.8 2 and 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 [facility] [address] [place] [address] 02/19/2023 [facility] [address] [place] [address] 02/19/2023 [facility] [address] [place] [address] 02/19/2023 [facility] [address] [place] [address] 02/23/2023 [facility] [address] [place] [address] 02/25/2023 [facility] [address] [place] [address] 02/26/2023 [facility] [address] [place] [address] 03/02/2023 [facility] [address] [place] [address] 03/02/2023 [facility] [address] [place] [address] 04/06/2023 [facility] [address] [place] [address] 04/07/2023 [facility] [address] [place] [address] 04/10/2023 [facility] [address] [place] [address] 06/15/2023 [facility] Type 2 diabetes mani itus with unspecified complications E11.8 ; Essential (primary) hypertension I10 and Mixed hyperlipidemia E78.[address] [place] [address] 06/18/[address] [place] [address] 09/07/[address] [place] [address] 09/08/[address] [place] [address] 09/17/[address] [place] [address] 10/17/[address] [place] [address] 10/17/[address] [place] [address] 10/26/2023 [facility] Postnasal drip R09.[address] [place] [address] 01/12/2024 BRICE GU Type 2 diabetes mani itus with unspecified complications E11.[address] [place] [address] 01/13/2024 BABS SANABRIA ASSESSMENTS Encounter Date Diagnosis Assessment Notes Treatment Notes Treatment Clinical Notes 06/15/2023 Type 2 diabetes mani itus with unspecified complications (ICD-10 - E11.8) 07/16/2023 Encounter for genera l adult medical examination without abnormal findings (ICD-10 - Z00.00) 09/01/2023 Postnasal drip (ICD- 10 - R09.82) 09/01/2023 Arthritis of right temporomandibular joint (ICD-10 - M26.641) 10/26/2023 Postnasal drip (ICD- 10 - R09.82) 01/12/2024 Type 2 diabetes mani itus with unspecified complications (ICD-10 - E11.8) 07/16/2023 Type 2 diabetes mani itus with unspecified complications (ICD-10 - E11.8) 07/16/2023 Essential (primary) hypertension (ICD-10 - I10) 06/15/2023 Essential (primary) hypertension (ICD-10 - I10) 06/15/2023 Mixed hyperlipidemia (ICD-10 - E78.2) 07/16/2023 Mixed hyperlipidemia (ICD-10 - E78.2) 07/16/2023 Sleep apnea, unspeci fied (ICD-10 - G47.30) PLAN OF TREATMENT Pending Test Test Name Order Date COMPREHENSIVE METABOLIC PANEL 06/15/2023 COMPREHENSIVE METABOLIC PANEL 01/07/2023 HEMOGLOBIN A1C 06/15/2023 HEMOGLOBIN A1C WITH EST GLUCOSE 01/08/20 23 HEMOGLOBIN A1C WITH EST GLUCOSE 06/25/20 22 LIPID PANEL 06/15/2023 LIPID PANEL 01/07/2023 MICROALBUMIN, URINE 06/15/2023 MICROALBUMIN, URINE 01/07/2023 PSA, SCREEN 01/07/2023 PSA, SCREEN 06/25/2022 CBC 07/24/2022 COMPREHENSIVE METABOLIC PANEL 07/24/2022 LIPID PROFILE 07/24/2022 PROSTATIC SPECIFIC ANTIGEN 07/24/2022 MICROSCOPIC, URINE 07/24/2022 Hemoglobin A1c 01/12/2024 Future Test Test Name Order Date HEMOGLOBIN A1C WITH EST GLUCOSE 07/16/20 23 PSA, SCREEN 07/16/2023 Next Appt Details Provider Name:BABS SANABRIA , 01/15/2024 03:30:00 PM, [address] [place] [address], [phone], Insurance Providers Payer Name Payer Address Payer Phone Subscriber Number Group Number Insured Name Patient Relationship to Insured Coverage Start Date Coverage End Date [facility] [address] [address] [place] [address] [phone] [id number] Don Myles Self - patient is the insured 2 MEDICAL (GENERAL) HISTORY Medical History History ICD Code Hypertension Hyperlipidemia DM type II Glaucoma cataracts Surgical History Surgery Date(Month/Year) Neck surgery by Dr Tessie chirinos laser eye surgery Hospitalization History Reason Date(Month/Year) surgery
== END 2024-01-12 12:11 | disposition home or self-care (01) ==
PROVIDERS: Physician Assistant; Emergency Provider Emergency Medicine; PCP Hospitalist
DX: K85.90 Acute pancreatitis without necrosis or infection, unspecified (principal); E11.9 Type 2 diabetes mellitus without complications; I10 Essential (primary) hypertension
CPT/HCPCS: 36415; 74177; 80048; 80076; 81003; 83690; 83735; 84478; 85025; 87040; 96361; 96374; 96376; 99284; 99285; J2270; Q9967

== ENCOUNTER 2024-01-27 07:55 | Outpatient (AMB) | payer OTHER, SELFPAY ==
--- NOTE | 2024-01-27 07:59 | MHC.OFFVIS ---
Vital Signs 01/27/24 08:08 Height 5 ft 8 in Weight 198 lb 6.656 oz BMI 30.2 BP 114/66 Blood Pressure Location Rt brachial Position Sitting Pulse 72 Pulse Source Pulse Oximeter Pulse Oximetry (%) 96 Oxygen Delivery Method Room Air Intake Visit Reasons: ER follow up Intake Note: Don presents to the office today for a requested post ED FUV. CC: Pt was admitted to ED on 01/12/2024 for abdominal pain which was diagnosed by ED MD as Acute Pancreatitis. Pt reports that his PCP believes that his sx were related to his Rx'd Trulicity. Pt has since been switched to farxiga. Pt has been doing OK since switching medications. Pt does report having intermittent AM nausea. Pt has not returned to work since the ED Admission. Pt was given a note by his PCP to return to work tomorrow. Pt is wondering if he should have a note from this office to return as well. Application Defense Manager Required: No Allergies No Known Allergies Allergy (Verified 01/27/24 08:07) HPI HPI ER follow up: Details: LAST VISIT: 02/25/23 Internal hemorrhoids without complication Moderate internal hemorrhoids. Patient denies any rectal pain, hematochezia. High-fiber diet, increase activity and fluid intake. Sitz baths as needed Diverticulosis Moderate diverticulosis of sigmoid colon. Patient will need to increase fiber in his diet. Went over high-fiber diet. List of food high in fiber given to patient. Tubular adenoma Tubular adenoma found without high-grade dysplasia carcinoma. Patient will need to repeat colonoscopy in 3 years. Status post colonoscopy Patient denies any ill effects from the prep, anesthesia or procedure itself. Patient was found to have tubular adenoma without high-grade dysplasia or carcinoma. Colonoscopy in 3 years. High-fiber diet discussed with patient. Patient will follow-up with us on as needed basis. He is agreeable to this plan and verbalizes understanding of instructions. He was given the opportunity to ask questions and all questions answered. ? Thank you for allowing me to participate in his care ED VISIT: 01/12/2024 Course Course Course Narrative: -1044--no leukocytosis. Labs otherwise reassuring. UA negative CT abdomen pelvis w IV con IMPRESSION: * Subtle fat stranding and edema is seen surrounding the pancreatic head, raising the suspicion of subtle acute pancreatitis. Clinical and lab correlation requested. * No evidence of nephrolithiasis or hydroureteronephrosis. * Mildly enlarged prostate gland impresses upon the bladder base. Bladder otherwise grossly unremarkable. * Small bilateral renal cysts, which warrant no additional imaging follow-up. * Mild atherosclerotic calcifications of the distal abdominal aorta and iliac arteries. -on re-evaluation patient sleeping, reports symptomatic improvement. On palpation abdomen soft with mild epigastric/RUQ tenderness. patient denies ETOH use since . > will obtain triglycerides and re-evaluate. Patient does not meet admission criteria based on Bridgette's criteria -1137--triglycerides elevated to 176. On re-evaluation patient reports symptomatic improvement. Discussed results. Patient comfortable with discharge home with pain control and close GI follow-up. He verbalized understanding. Discussed clear liquid diet. Medical Decision Making Medical Decision Making MDM Narrative: 68-year-old male with a past medical history diverticulosis, diabetes, HLD, HTN, presenting to the ED complaining of abdominal discomfort and distention x4 days. On exam vital signs stable, NAD, nontoxic appearing, abdomen distended with upper tenderness to palpation, no rebound or guarding, no CVAT. Concern for PUD/perforation vs pancreatitis vs cholecystitis/lithiasis. Lower suspicion for renal stone/pyelo, diverticulitis or appendicitis. Plan: Labs, UA, CT AP, IVF, pain management, re-evaluate TODAY'S VISIT Patient is here today after being seen in the ER couple of weeks ago. Patient was seen for abdominal pain and was found to have acute pancreatitis. Patient has been tolerating clear liquid diets for 1st week or so after seen in the ER and now is able to eat food that is better. Patient reports that his PCP changed Trulicity to Farxiga and he has been doing well since. Occasional dyspepsia depending on what he eats. However patient states that he is trying to avoid dietary triggers. Patient definitely is avoiding food that is greasy and high in fat. Patient wants to try to lose weight. Patient denies any other GI concerning symptoms today. See above ED note for findings. Patient had no leukocytosis. CT scan showed acute pancreatitis without elevated lipase. Patient's triglycerides were also elevated mildly. [facility] Medical History Tubular adenoma Diverticulosis Internal hemorrhoids without complication Glaucoma Diabetes mellitus, type II Hyperlipidemia HTN (hypertension) Surgical History Hx of colonoscopy History of surgical procedure on eye proper using laser Family History Mother HTN (hypertension) High cholesterol Diabetes Pacemaker Social History Household Members: Significant Other Alcohol intake: never Patient Tobacco Use Status: Never used Tobacco Review of Systems Const Denies weight gain and Denies weight loss ENT Reports no additional complaints, Denies dysphagia and Denies odynophagia Card Reports no additional complaints Resp Reports no additional complaints GI Denies abdominal pain, Denies belching, Denies melena, Denies bloating, Denies change in bowel habits, Denies dysphagia, Denies excessive flatus, Denies dyspepsia, Denies heartburn, Denies diarrhea, Denies loose stools, Denies nausea, Denies odynophagia and Denies vomiting Reports no additional complaints Musc Reports no additional complaints Neuro Reports no additional complaints Psych Reports no additional complaints Endo Reports no additional complaints Physical Exam Vital Signs: Last Vital Signs Pulse 72 01/27/24 08:08 BP 114/66 01/27/24 08:08 Pulse Ox 96 01/27/24 08:08 Oxygen Delivery Method Room Air 01/27/24 08:08 BMI result Body Mass Index 30.2 Const General: healthy appearing and no acute distress Nutritional Appearance: obese Orientation/consciousness: patient oriented x3 HEENT Head: Yes normal to inspection, Yes normocephalic and Yes atraumatic Face and sinus: Yes normal facial exam Mouth: Normal oral and palatal mucosa present Throat: Yes posterior oropharynx normal, Yes tonsils normal and Yes uvula midline Eyes General: appearance normal, both eyes and all related structures Neck Neck: Yes normal visual inspection, Yes full ROM and Yes trachea midline Thyroid: Thyroid normal Resp Effort & Inspection: normal respiratory effort, able to speak in complete sentences, no tracheal deviation and symmetric chest movement Auscultation: clear to auscultation bilaterally Cardio Jugular venous distension: no JVD Rate: regular rate Heart sounds: S1 normal heart sound present, S2 normal heart sound present, no gallops and no murmurs GI Inspection: Yes normal to inspection and No distended Palpation (GI): Soft to palpation, not firm, nontender and No hepatosplenomegaly present Auscultation: normal bowel sounds General: Yes no CVA tenderness Back/Spine/Pelvis Back: no CVA tenderness Skin General skin exam: elasticity normal, turgor normal and dry skin Neuro General: patient oriented x3 Psych Appearance: grossly normal Mental Status: mental status grossly normal Speech and movement: Normal speech and movement present Affect: normal affect Attitude: cooperative Thought process: Normal thought process present Thought content: Normal thought content present Insight: Good insight present (Psych) Judgement: Good judgement present (Psych) Assessment & Plan Assessment & Plan (1) History of acute pancreatitis: Code(s): Z87.19 - Personal history of other diseases of the digestive system Plan Will repeat lab work today. Continue avoiding dietary triggers. Patient is tolerating food. Avoid food high in fat and greasy. Patient will return in 3 months, sooner on as needed basis. He is agreeable to this plan and verbalizes understanding if instructions. He was given the opportunity to ask questions and all questions answered. Thank you for allowing me to participate in his care Orders: Orders Pancreatic Elastase-1 01/27/24 R10.9 - Unspecified abdominal pain Lipase 01/27/24 R10.9 - Unspecified abdominal pain Lipid Panel 01/27/24 I25.10 - Atherosclerotic heart disease of [place] coronary artery without angina pectoris Liver Panel 01/27/24 R74.01 - Elevation of levels of liver transaminase levels Coding Level of Care Code Est Pt Level 4 (45516) Diagnoses History of acute pancreatitis Z87.19 Time Spent (min) 35 Comment 20 minutes spent with patient and additional 15 minutes spent reviewing his records
[2024-01-27 08:08] VITALS: BP 114/66; PULSE 72; O2SAT 96; BMI 30.2
== END 2024-01-27 08:35 | disposition home or self-care (01) ==
PROVIDERS: PCP Hospitalist; Visit Provider Nurse Practitioner Family
DX: Z87.19 Personal history of other diseases of the digestive system (principal)
CPT/HCPCS: 99214

== ENCOUNTER 2024-01-27 07:55 | Outpatient (REF) | payer OTHER, SELFPAY ==
[2024-01-27 11:01] LABS: Alanine Aminotransferase 25 U/L (0-40); Albumin Level 4.2 g/dL (3.5-5.0); Alkaline Phosphatase 76 U/L (39-117); Aspartate Amino Transferase 15 U/L (5-37); Bilirubin Direct 0.1 mg/dL (0.0-0.5); Bilirubin Total 0.3 mg/dL (0.0-1.0); Cholesterol 105 mg/dL (<200); HDL Cholesterol 31 mg/dL (>40); LDL Cholesterol Calculated 51 mg/dL (<100); Lipase 15 U/L (8-78); Total Protein 7.1 g/dL (6.5-8.0); Triglycerides 115 mg/dL (<150)
[2024-02-05 16:44] LABS: Pancreatic Elastase-1 >500 mcg/g
== END 2024-01-27 07:56 | disposition home or self-care (01) ==
LOC: HO.LAB 07:55
PROVIDERS: PCP Hospitalist; Visit Provider Nurse Practitioner Family
DX: R10.9 Unspecified abdominal pain (principal); I25.10 Atherosclerotic heart disease of native coronary artery without angina pectoris; R74.01 Elevation of levels of liver transaminase levels; Z87.19 Personal history of other diseases of the digestive system
CPT/HCPCS: 36415; 80061; 80076; 82656; 83690; 99212

== ENCOUNTER 2024-03-30 15:28 | Outpatient (AMB) | payer OTHER, SELFPAY ==
[2024-03-30 15:30] VITALS: BP 122/72; PULSE 84; O2SAT 96; BMI 29.5
--- NOTE | 2024-03-30 15:30 | MHC.OFFVIS ---
Vital Signs 03/30/24 15:30 Height 5 ft 8 in Weight 194 lb 0.108 oz BMI 29.5 BP 122/72 Blood Pressure Location Rt brachial Position Sitting Pulse 84 Pulse Source Pulse Oximeter Pulse Oximetry (%) 96 Oxygen Delivery Method Room Air Intake Visit Reasons: 2 month follow uop Intake Note: Don presents in office today for a scheduled 2 mos FUV. CC; Pt reports that they are doing OK but could be doing better. Pt has been having difficulties with his hyperglycemia. Pt was taken off of the trulicity and placed on farxiga. However, this replacement has not been effective in managing his glucose levels. Pt has been feeling unwell as a result of their hyperglycemia. Pt has had intermittent abdominal pain and had taken their PRN morphine x2. Auto Leasing Manager Required: No Allergies No Known Allergies Allergy (Verified 04/14/24 15:49) HPI HPI 2 month follow uop: Details: LAST VISIT History of acute pancreatitis Plan Will repeat lab work today. Continue avoiding dietary triggers. Patient is tolerating food. Avoid food high in fat and greasy. Patient will return in 3 months, sooner on as needed basis. He is agreeable to this plan and verbalizes understanding if instructions. He was given the opportunity to ask questions and all questions answered. ? Thank you for allowing me to participate in his care Orders Orders Pancreatic Elastase-1 01/27/24 R10.9 Lipase 01/27/24 R10.9 Lipid Panel 01/27/24 I25.10 Liver Panel 01/27/24 R74.01 TODAY'S VISIT: Patient is here today for follow-up and to discuss lab results. Patient reports that he has been doing well has good appetite, however he admits to be disappointed as he is unable to control his sugars well. Patient knows that when his sugars are high he does not feel well. He was on Trulicity in the past, however developed pancreatitis and was taking off the medication. Patient does not have reactor service operator. Patient is taking Farxiga. Patient denies any melena, hematochezia, unintentional weight loss or ribbon like stools. Patient denies any dyspepsia, dysphagia or odynophagia. Patient denies any GI concerning symptoms today. [facility] Medical History Hx of cataract Tubular adenoma Diverticulosis Internal hemorrhoids without complication Glaucoma Diabetes mellitus, type II Hyperlipidemia HTN (hypertension) Surgical History Hx of colonoscopy History of surgical procedure on eye proper using laser Family History Mother HTN (hypertension) High cholesterol Diabetes Pacemaker Social History Household Members: Significant Other Alcohol intake: never Patient Tobacco Use Status: Never used Tobacco Review of Systems Const Denies weight gain and Denies weight loss ENT Reports no additional complaints, Denies dysphagia and Denies odynophagia Card Reports no additional complaints Resp Reports no additional complaints GI Denies abdominal pain, Denies belching, Denies melena, Denies bloating, Denies change in bowel habits, Denies dysphagia, Denies excessive flatus, Denies dyspepsia, Denies heartburn, Denies diarrhea, Denies loose stools, Denies nausea, Denies odynophagia and Denies vomiting Reports no additional complaints Musc Reports no additional complaints Neuro Reports no additional complaints Psych Reports no additional complaints Endo Reports no additional complaints Physical Exam Vital Signs: Last Vital Signs Pulse 84 03/30/24 15:30 BP 122/72 03/30/24 15:30 Pulse Ox 96 03/30/24 15:30 Oxygen Delivery Method Room Air 03/30/24 15:30 BMI result Body Mass Index 29.5 Const General: healthy appearing and no acute distress Nutritional Appearance: obese Orientation/consciousness: patient oriented x3 Resp Effort & Inspection: normal respiratory effort, able to speak in complete sentences, no tracheal deviation and symmetric chest movement Auscultation: clear to auscultation bilaterally Cardio Rate: regular rate GI Inspection: Yes normal to inspection, No distended and Yes obesity Palpation (GI): Soft to palpation, not firm, nontender and No hepatosplenomegaly present Auscultation: normal bowel sounds General: Yes no CVA tenderness Back/Spine/Pelvis Back: no CVA tenderness Skin General skin exam: elasticity normal, turgor normal and dry skin Neuro General: patient oriented x3 Psych Appearance: grossly normal Mental Status: mental status grossly normal Results Reviewed Results Reviewed: Laboratory Tests 01/27/24 01/27/24 09:02 11:45 Total Bilirubin 0.3 Direct Bilirubin 0.1 AST 15 ALT 25 Triglycerides 115 Cholesterol 105 HDL Cholesterol 31 L Lipase 15 Stool Pancreat Elastase >500 Assessment & Plan Assessment & Plan (1) Diverticulosis: Code(s): K57.90 - Diverticulosis of intestine, part unspecified, without perforation or abscess without bleeding Category: Medical (2) Tubular adenoma: Code(s): D36.9 - Benign neoplasm, unspecified site Category: Medical (3) History of acute pancreatitis: Code(s): Z87.19 - Personal history of other diseases of the digestive system Plan Continue avoiding dietary triggers. All his blood work is normal. Pancreatic insufficiency ruled out. No pancreatitis. Patient reports that he is feeling well. His blood sugars however are not controlled very well. Message sent to endocrinology provider Jacike Santacruz NP requesting a consult. Patient will follow-up in our office in 3 months, sooner on as needed basis. Patient is agreeable to this plan and verbalizes understanding of instructions. He was given the opportunity to ask questions and all questions answered. Thank you for allowing me to participate in his care Orders: Referrals Endocrinology Referral E11.9 - Type 2 diabetes mellitus without complications Coding Level of Care Code Est Pt Level 3 (55038) Diagnoses Diverticulosis K57.90 Tubular adenoma D36.9 History of acute pancreatitis Z87.19 Time Spent (min) 25 Comment 15 minutes spent with patient and additional 10 minutes spent reviewing his records
== END 2024-03-30 16:06 | disposition home or self-care (01) ==
PROVIDERS: PCP Hospitalist; Visit Provider Nurse Practitioner Family
DX: K57.90 Diverticulosis of intestine, part unspecified, without perforation or abscess without bleeding (principal); D36.9 Benign neoplasm, unspecified site; Z87.19 Personal history of other diseases of the digestive system
CPT/HCPCS: 99213

== ENCOUNTER → 2024-03-30 15:28 | Outpatient (BNVA) | payer OTHER, SELFPAY | PROVIDERS: PCP Hospitalist; Visit Provider Nurse Practitioner Family | DX: K57.90 Diverticulosis of intestine, part unspecified, without perforation or abscess without bleeding (principal); D36.9 Benign neoplasm, unspecified site; Z71.2 Person consulting for explanation of examination or test findings; Z87.19 Personal history of other diseases of the digestive system; Z79.899 Other long term (current) drug therapy | CPT/HCPCS: 99212 ==

== ENCOUNTER 2024-04-06 13:37 | Outpatient (AMB) | payer OTHER, SELFPAY ==
--- NOTE | 2024-04-06 13:43 | A.OFFVIS_ITS ---
Vital Signs 04/06/24 13:50 Height 5 ft 8 in Weight 198 lb 6.656 oz BMI 30.2 BP 134/78 Blood Pressure Location Rt brachial Position Sitting Pulse 77 Pulse Source Pulse Oximeter Intake Visit Reasons: Type 2 DM/CONFIRMED Intake Note: NEW Patient presents today to establish treatment for Type 2 Diabetes Mellitus: Last Diabetic eye exam was on: 02/2024, had laser surgery for cataracts Last Podiatry exam was on: Does not see a Stamp Mounter Most recent HbA1c: 8.9%, 04/06/2024 Random Glucose- 236 mg/dL, Today Crozer Operator Required: No Accompanied by: Self / Same As Patient Allergies No Known Allergies Allergy (Verified 04/06/24 13:44) HPI Comments Details: [69] YO [M/F] who is seen in consultation for T2DM at the request of PCP. Initially diagnosed with T2DM diagnosed at 35. Was diagnosed after polyuria, dizziness. Was initially started on treatment with [metformin actos]. Had recent episode of pancreatitis in January 2024 Was on Trulicity which was very effective. Has been off since hospitalization. Current regimen: farxiga 10mg glimipiride 4mg metformin 1000mg Reports low sugars [none]. Treats lows with [hasn't had any]. Most recent A1C [8.9], [up] from prior [7.4%] in [January]. Was lower later in the year while he was on Trulicity Family history of T2DM in [mother uncle type 1 (not certain) cousin on insulin]. Has eyes checked yearly, last eye exam [03/02], [denies] retinopathy Has elevated pressures and cataract extraction glaucoma surgery [Denies ] neuropathy, was seeing podiatry in the past [negative] nephropathy, on [RAMILA]. microalbumin:12 08/01 [Has] HLD, on [statin]. Last LDL [51] as measured on [01/31]. [Denies] CAD. Diet: [trys to balance] Weight: [stable] [no] diabetes education. [facility] Medical History Tubular adenoma Diverticulosis Internal hemorrhoids without complication Glaucoma Diabetes mellitus, type II Hyperlipidemia HTN (hypertension) Surgical History Hx of colonoscopy History of surgical procedure on eye proper using laser Family History Mother HTN (hypertension) High cholesterol Diabetes Pacemaker Social History Household Members: Significant Other Alcohol intake: never Patient Tobacco Use Status: Never used Tobacco Physical Exam Vital Signs: Last Vital Signs Pulse 77 04/06/24 13:50 BP 134/78 04/06/24 13:50 BMI result Body Mass Index 30.2 Absence of Cushingoid features. Absence of acromegalic features. Neck exam reveals nl size thyroid about 15 gms. No thyroid nodules palpable. No carotid bruits present. Lungs CTA. Heart S1 S2, Reg R/R. No M/R/ G. Skin exam reveals absence of vitiligo or acanthosis nigricans. Abdominal exam reveals Soft NT/ND with NA BS. No organomegaly present. Const General: cooperative and healthy appearing Nutritional Appearance: overweight Orientation/consciousness: oriented to person, oriented to place and oriented to time Limitations: no limitations Neck Other: . Neck: Yes normal visual inspection Thyroid: Thyroid normal Resp Effort & Inspection: normal respiratory effort Cardio Jugular venous distension: no JVD Rate: regular rate Rhythm: regular rhythm Heart sounds: S1 normal heart sound present and S2 normal heart sound present Neuro General: oriented to person, oriented to place and oriented to time Extrem Other: deferred today Results AMB Hemoglobin A1c AMB Hemoglobin A1c 8.9 % Last Edit by MARILEE Douglas on 04/06/24 14:15 Results Reviewed Results Reviewed: Laboratory Last Values Glucose (Clinic) 236 mg/dL (60-115) H 04/06/24 14:04 Hgb A1c (Clinic) 8.9 % (4.0-6.0) H 04/06/24 13:46 Laboratory Tests 07/11/23 07/11/23 01/09/24 09:49 09:54 09:54 Potassium Creatinine Estim Creat Clear Calc Estimated GFR Estimat Average Glucose 151 166 Hemoglobin A1c % 6.9 H 7.4 H Calcium AST ALT Triglycerides Cholesterol LDL Cholesterol, Calc HDL Cholesterol Urine Creatinine 141.85 Urine Microalbumin 14.0 Microalb/Creat Ratio 9.8 01/12/24 01/27/24 05:16 09:02 Potassium 4.0 Creatinine 1.21 Estim Creat Clear Calc 65.1 Estimated GFR 60 Estimat Average Glucose Hemoglobin A1c % Calcium 10.2 AST 15 ALT 25 Triglycerides 115 Cholesterol 105 LDL Cholesterol, Calc 51 HDL Cholesterol 31 L Urine Creatinine Urine Microalbumin Microalb/Creat Ratio Assessment & Plan Assessment & Plan (1) Diabetes mellitus, type II: Code(s): E11.9 - Type 2 diabetes mellitus without complications Category: Medical Plan: 69 year old type 2 diabetic with no micro/macro vascular complications previousl y well controlled while on Trulicity. He was hospitalized with pancreatitis several months ago and has been off Trulicity since that time. Continue metformin, farxiga and glimipiride and start on Lantus insulin at 10 units in the evening. RTC in one week to review numbers and will also see asbestos coverer for general dm education. He will continue to use freestyle christofer. He was given a sample of Tresiba u100 3ml pen in box with pen needles in the event that it takes time to get his insulin approved. 1 pen dispensed expiration date: 12/07/24 lot number:[id number]. He is aware that Lantus has been sent to his pharmacy and that they are similar insulins however this was not available to give to patient as a sample. He will eventually prefer a prescription to his mail in pharmacy for 90 days. All questions were answered. Orders: Orders AMB Hemoglobin A1c Today E11.9 - Type 2 diabetes mellitus without complications Medications: New pen needle, diabetic (BD Ultra-Fine Sharon Pen Needle) As directed once daily 50 ea 3RF E11.9 - Type 2 diabetes mellitus without complications insulin glargine 10 units (0.1 mL) subcut QPM 30 days 3 mL 3RF E11.9 - Type 2 diabetes mellitus without complications Patient Instructions: Patient instructed on correct storage of pens, hand washing, site selection, use of pen along with alcohol prep, changing needle and priming. Instructed on how to self inject and disposal of needles. He was able to give a return demonstration of correct pen use and correctly inject to sink 10 units. Lantus was sent to pharmacy. Patient was given one box of Tresiba in the event it takes several days to have insurance approve insulin. reviewed rule of 15's and need to carry a sugar source. Coding Level of Care Code New Pt Level 5 (00811) Complex EM visit Add On G2211 Diagnoses Diabetes mellitus, type II E11.9 Time Spent (min) 50 Comment lab/provider note review, glucose sensor review face to face and chart doc
[2024-04-06 13:50] VITALS: BP 134/78; PULSE 77; BMI 30.2
[2024-04-06 14:11] LABS: Glucose, Whole Blood 236 mg/dL (60-115)
== END 2024-04-06 14:54 | disposition home or self-care (01) ==
PROVIDERS: PCP Hospitalist; Visit Provider Nurse Practitioner Adult Health
DX: E11.9 Type 2 diabetes mellitus without complications (principal)
CPT/HCPCS: 99204; 99214; G2211

== ENCOUNTER → 2024-04-06 13:37 | Outpatient (BNVA) | payer OTHER, SELFPAY | PROVIDERS: PCP Hospitalist; Visit Provider Nurse Practitioner Adult Health | DX: E11.9 Type 2 diabetes mellitus without complications (principal); Z79.84 Long term (current) use of oral hypoglycemic drugs; Z79.899 Other long term (current) drug therapy | CPT/HCPCS: 82947; 83036; 99202 ==

== ENCOUNTER 2024-04-14 15:41 | Outpatient (AMB) | payer OTHER, SELFPAY ==
--- NOTE | 2024-04-14 15:19 | A.OFFVIS_ITS ---
Vital Signs 04/14/24 15:51 Height 5 ft 8 in Weight 196 lb 3.382 oz BMI 29.8 BP 120/74 Blood Pressure Location Rt brachial Position Sitting Pulse 76 Pulse Source Pulse Oximeter Intake Visit Reasons: T2DM/LVM Intake Note: Patient presents today for a follow-up for Type 2 Diabetes Mellitus: Last Diabetic eye exam was on: 02/2024, had laser surgery for cataracts Last Podiatry exam was on: Does not see a Tube Skiver Most recent HbA1c: 8.9%, 04/06/2024 Random Glucose- 213 mg/dL, Today Scrap Iron Cutter Required: No Accompanied by: Self / Same As Patient Allergies No Known Allergies Allergy (Verified 04/14/24 15:49) HPI Comments Details: 69 YO male who is seen in f/u for T2DM. He was seen in initial consult by myself one week ago. At that time he was started on low dose basal insulin. Initially diagnosed with T2DM diagnosed at 35. Was diagnosed after polyuria, dizziness. Was initially started on treatment with metformin and actos. Had recent episode of pancreatitis in January 2024 Was on Trulicity which was very effective. Has been off since hospitalization. Current regimen: Lantus 10 units farxiga 10mg (was taking 1/2 tablet) glimipiride 4mg metformin 1000mg twice daily Glucose by freestyle 2 checking twice daily shows an average of 200 Reports low sugars [none]. Treats lows with [hasn't had any]. Most recent A1C [8.9], [up] from prior [7.4%] in [January]. Was lower later in the year while he was on Trulicity Family history of T2DM in [mother uncle type 1 (not certain) cousin on insulin]. Has eyes checked yearly, last eye exam [03/02], [denies] retinopathy Has elevated pressures and cataract extraction glaucoma surgery Denies neuropathy, was seeing podiatry in the past [negative] nephropathy, on [RAMILA]. microalbumin: 12 08/01 HLD on statin. Last LDL 51 as measured on 01/31 [Denies] CAD. Diet: [trys to balance, loves veg/chicken/fish] Weight: [stable] He is scheduled for diabetes education. Had full instruction on insulin injections, administration, storage at last visit. [facility] Medical History Hx of cataract Tubular adenoma Diverticulosis Internal hemorrhoids without complication Glaucoma Diabetes mellitus, type II Hyperlipidemia HTN (hypertension) Surgical History Hx of colonoscopy History of surgical procedure on eye proper using laser Family History Mother HTN (hypertension) High cholesterol Diabetes Pacemaker Social History Household Members: Significant Other Alcohol intake: never Patient Tobacco Use Status: Never used Tobacco Physical Exam Vital Signs: Last Vital Signs Pulse 76 04/14/24 15:51 BP 120/74 04/14/24 15:51 BMI result Body Mass Index 29.8 Const Other: Absence of Cushingoid features. Absence of acromegalic features. Neck exam rev eals nl size thyroid about 15 gms. No thyroid nodules palpable. Heart S1 S2, Reg R/R. No M/R G. Skin exam reveals absence of vitiligo or acanthosis nigricans. Extrem Other: Visual exam of foot performed. No ulcerations or open lesions. No onchomycosis, callous right 5th toe. Sensation intact to monofilament exam. Vibratory sensation is normal with 128 Hz tuning fork. Results Reviewed Results Reviewed: Laboratory Last Values Glucose (Clinic) 213 mg/dL (60-115) H 04/14/24 16:00 Laboratory Tests 07/11/23 01/27/24 04/06/24 09:49 09:02 13:46 Hgb A1c (Clinic) 8.9 H Triglycerides 115 Cholesterol 105 LDL Cholesterol, Calc 51 HDL Cholesterol 31 L Urine Creatinine 141.85 Urine Microalbumin 14.0 Microalb/Creat Ratio 9.8 Assessment & Plan Assessment & Plan (1) Diabetes mellitus, type II: Code(s): E11.9 - Type 2 diabetes mellitus without complications Category: Medical Plan: Type 2 diabetic previously well controlled until Trulicity was stopped status post hospitalization for pancreatitis. Glucose average is 200. He was asked to increase his insulin and increase Farxiga to 10mg. Diabetes Medications Lantus 24 units (Basaglar) farxiga 10mg glimipiride 4mg metformin 1000mg twice daily Reviewed insulin injection, administration and storage technique. He will start diabetes education, return to clinic in 4 weeks. He will contact me by phone if his blood sugars are not coming under better range and can make an additional adjustment using freestyle 2 readings Orders: Referrals Podiatry Referral E11.9 - Type 2 diabetes mellitus without complications Medications: New insulin glargine (Basaglar KwikPen U-100 Insulin) 24 units (0.24 mL) subcut QPM 30 days 9 mL 4RF E11.9 - Type 2 diabetes mellitus without complications Discontinued insulin glargine Discontinued Reason: Doctor's Order 10 units (0.1 mL) subcut QPM 30 days 3 mL 3RF E11.9 - Type 2 diabetes mellitus without complications Coding Level of Care Code Est Pt Level 4 (61906) Complex EM visit Add On G2211 Diagnoses Diabetes mellitus, type II E11.9 Time Spent (min) 30 Comment Time spent reviewing labs/provider notes, face to face, chart doc
[2024-04-14 15:51] VITALS: BP 120/74; PULSE 76; BMI 29.8
[2024-04-14 16:06] LABS: Glucose, Whole Blood 213 mg/dL (60-115)
== END 2024-04-14 16:26 | disposition home or self-care (01) ==
PROVIDERS: PCP Hospitalist; Visit Provider Nurse Practitioner Adult Health
DX: E11.9 Type 2 diabetes mellitus without complications (principal)
CPT/HCPCS: 99214; G2211

== ENCOUNTER → 2024-04-14 15:41 | Outpatient (BNVA) | payer OTHER, SELFPAY | PROVIDERS: PCP Hospitalist; Visit Provider Nurse Practitioner Adult Health | DX: E11.9 Type 2 diabetes mellitus without complications (principal); Z79.4 Long term (current) use of insulin | CPT/HCPCS: 82947; 99212 ==

== ENCOUNTER 2024-04-21 15:45 | Outpatient (AMB) | payer OTHER, SELFPAY ==
--- NOTE | 2024-04-21 16:38 | MHC.AMDMED ---
Intake Intake Visit Reasons: T2DM/LVM Allergies No Known Allergies Allergy (Verified 04/14/24 15:49) HPI Comprehensive Diabetes Asmnt Most Recent Diabetes Results: Microalb/Creat Ratio 9.8 ug/mg cr (<30) 07/11/23 Cholesterol 105 mg/dL (<200) 01/27/24 HDL Cholesterol 31 mg/dL (>40) L 01/27/24 Triglycerides 115 mg/dL (<150) 01/27/24 Creatinine 1.21 mg/dL (0.5-1.4) 01/12/24 Blood Urea Nitrogen 16 mg/dL (9-16) 01/12/24 Sodium 139 mmol/L (135-145) 01/12/24 Potassium 4.0 mmol/L (3.3-5.1) 01/12/24 Chloride 103 mmol/L (96-108) 01/12/24 Carbon Dioxide 26 mmol/L (22-29) 01/12/24 Calcium 10.2 mg/dL (8.4-10.2) 01/12/24 AST 15 U/L (5-37) 01/27/24 ALT 25 U/L (0-40) 01/27/24 Total Protein 7.1 g/dL (6.5-8.0) 01/27/24 Albumin 4.2 g/dL (3.5-5.0) 01/27/24 [facility] TO [facility] Medical History Hx of cataract Tubular adenoma Diverticulosis Internal hemorrhoids without complication Glaucoma Diabetes mellitus, type II Hyperlipidemia HTN (hypertension) Surgical History Hx of colonoscopy History of surgical procedure on eye proper using laser Family History Mother HTN (hypertension) High cholesterol Diabetes Pacemaker Social History Household Members: Significant Other Alcohol intake: never Patient Tobacco Use Status: Never used Tobacco Assessment & Plan Assessment & Plan (1) Diabetes mellitus, type II: Code(s): E11.9 - Type 2 diabetes mellitus without complications Plan: Diabetes self-management education and support participation record Assessment/scale: 1= needs instructed? 2= needs review? 3= comprehend keep point? 4= demonstrates understanding/ competent? NC= Not Covered Topics Learning Objective: Initial visit Initial or post srvc Initial or post srvc Initial or post srvc Initial or post srvc Initial or post srvc Post srvc Comments Pre Edu-assessment/plan Outcome or reassess Outcome or reassess Outcome or reassess Outcome or reassess Outcome or reassess Outcome or reassess Diabetes pathophysiology 1 Healthy eating 1 Being active 2 Taking medication 2 Monitoring glucose 2 Acute complication 1 Chronic complicated 1 Lifestyle and healthy coping 2 Diabetes distress in support 2 ?Diabetes pathophysiology: ?Defined diabetes med identify own type of diabetes; list 3 options for treating diabetes Healthy eating: ?Described effect of type, amount and ?timing of food on blood glucose; list 3 methods for planning meal Being active: ?State effect of exercise on blood glucose level Taking medication: ?State effect of diabetes medications on diabetes; name diabetes medications taking, action and side effects Monitoring glucose: ?Identify recommended blood glucose targets and personal target Acute complication: ?List symptoms and treatment of hyper and hypoglycemia, DKA, sick day guidelines and guidelines for severe weather or situations of crisis and diabetes supply manage Chronic complication: ?To find the relationship of blood glucose levels to long-term complications of diabetes in screening and preventative measures Lifestyle and healthy coping: ?Described lifestyle and healthy coping strategies to rule out diabetes self-management Diabetes to stress and support: ?Recognize Diabetes to stress and be able to identified support options Learning objectives: The patient was provided with verbal and written education on the following topics as outlined below. The patient met all learning objectives and was able to verbalize understanding and provide teach back of education topics discussed . The patient was provided with the opportunity to ask questions and all questions were answered. Patient Assessment Assess patient education level/literacy/barriers, patient able to identify carbohydrate foods that he is currently eating from carbohydrate list Patient questions/concerns, patient had pancreatitis summer, stopped Trulicity due to pancreatitis. He is now on Basaglar 24 units daily Metformin 1000 mg b.i.d. Farxiga 10 mg What is Diabetes? Pathophysiology How the body produces and uses insulin Identify type of DM Risk factors Signs of Diabetes Brief overview of Diabetes Management Monitoring blood sugar Following a meal plan Regular exercise Maintaining a healthy weight Taking medication as needed Members of the care team (PCP, RN, MA, RD, CDE, screed operator) Blood glucose monitoring When/how often to test Target blood sugar ranges Patient's average glucose for the past 14 days 212 mg/dL Patient above target 71% At target 29% Below target 0% Introduction to Nutrition Importance of healthy diet in managing DM Diet is personalized to individual preference Review patient?s regular diet/food preferences Who prepares meals/does food shopping/ Dining out?/ Barriers? How diet effects glucose Eating 3 balanced meals a day with small, healthy snacks between meals Review food groups Carbohydrates: What is a carbohydrate/Which food/food groups are considered carbohydrates Effect of carbohydrates on blood glucose Portion sizes Reading food labels Basic carb counting (if applicable per nursing assessment) Plate method Meal planning Recommendations: Follow plate method, consistent carbs and read nutritional labels. Smart Goal: Patient will keep mealtime portions to 45-60 g per meal Educational Materials: The patient was provided with the following written educational materials: Planning Healthy Meals Handout Patient Response to instructions: Comprehension of Instructions: Fair Readiness to make changes: Contemplation How confident they feel about making changes: Positive Portions of this note were created using voice recognition software, please excuse any words or phrases that may have been misinterpreted. Patient Instructions: Include regular daily activity. ADA recommends 30 minutes of exercise 5 days a week. Weight loss talk to PCP or Cell Assembly Pinner before starting new plan. Test blood sugar as directed; Fasting and 2hpp largest meal. Watch trends in results. Utilize results and to assess how food, physical activity and medications affect blood sugar results. Bring glucometer or CGM to next visit. Be knowledgeable about diabetes medication, its action, side effects, efficacy, toxicity, prescribed dosage, appropriate timing and frequency of administration, effect of missed and delayed doses and instructions for storage, travel and safety. Problem solving techniques to monitor hypo/hyperglycemia episodes and treatments. Reduce risk reduction behaviors, smoking cessation, regular eye, foot and dental examinations. Increase Basaglar 26 units daily, contact IT ARCHITECT if fasting glucose remains above 150 mg/dL Follow-up with Diabetes Education nurse in 2 months Coding Level of Care Code Est Pt Level 1 (74608) Diagnoses Diabetes mellitus, type II E11.9
== END 2024-04-21 16:41 | disposition home or self-care (01) ==
PROVIDERS: PCP Hospitalist; Visit Provider Registered Nurse Diabetes Educator
DX: E11.9 Type 2 diabetes mellitus without complications (principal)

== ENCOUNTER → 2024-04-21 15:45 | Outpatient (BNVA) | payer OTHER, SELFPAY | PROVIDERS: PCP Hospitalist; Visit Provider Registered Nurse Diabetes Educator | DX: E11.9 Type 2 diabetes mellitus without complications (principal) | CPT/HCPCS: 99211 ==

== ENCOUNTER 2024-04-25 15:56 | Outpatient (REF) | payer OTHER, SELFPAY ==
[2024-04-25 18:37] LABS: Creatinine Urine 133.12 mg/dL
[2024-04-25 18:41] LABS: Alanine Aminotransferase 19 U/L (0-40); Albumin Level 4.2 g/dL (3.5-5.0); Alkaline Phosphatase 85 U/L (39-117); Anion Gap 13 (12-20); Aspartate Amino Transferase 14 U/L (5-37); Bilirubin Total 0.4 mg/dL (0.0-1.0); Blood Urea Nitrogen 15 mg/dL (9-16); Calcium 9.8 mg/dL (8.4-10.2); Carbon Dioxide 27 mmol/L (22-29); Chloride 104 mmol/L (96-108); Estimated Glomerular Filt Rate > 60; Glucose Random 79 mg/dL (60-115); Potassium 3.5 mmol/L (3.3-5.1); Sodium 140 mmol/L (135-145)
== END 2024-04-25 15:57 | disposition home or self-care (01) ==
LOC: HO.LAB 15:56
PROVIDERS: PCP Hospitalist
DX: E11.8 Type 2 diabetes mellitus with unspecified complications (principal)
CPT/HCPCS: 36415; 80053; 82043; 82570

== ENCOUNTER 2024-05-12 15:14 | Outpatient (AMB) | payer OTHER, SELFPAY ==
--- NOTE | 2024-05-12 15:23 | A.OFFVIS_ITS ---
Vital Signs 05/12/24 15:24 Height 5 ft 8 in Weight 198 lb 6.656 oz BMI 30.2 BP 128/76 Blood Pressure Location Rt brachial Position Sitting Pulse 75 Pulse Source Pulse Oximeter Intake Visit Reasons: DM/LVM Intake Note: Patient presents today for a follow-up for Type 2 Diabetes Mellitus: Last Diabetic eye exam was on: 02/2024, had laser surgery for cataracts Last Podiatry exam was on: Does not see a Living Coach Most recent HbA1c: 8.9%, 04/06/2024 Random Glucose- 120mg/dL, Today Steamship Agent Required: No Accompanied by: Self / Same As Patient Allergies No Known Allergies Allergy (Verified 05/12/24 15:24) HPI Comments Details: 69 YO male who is seen in f/u for T2DM. He was seen for initial consult in March. At that time he was started on low dose basal insulin. Most recent A1c is 8.9% 04/06/24. Initially diagnosed with T2DM diagnosed at 35. Was diagnosed after polyuria, dizziness. Was initially started on treatment with metformin and actos. Had recent episode of pancreatitis in January 2024 Was on Trulicity which was very effective. Has been off since hospitalization. Current regimen: Lantus 26 units (Basaglar) jardiance 10mg glimipiride 4mg metformin 1000mg twice daily Glucose readings on freestyle Marleen 2 are in excellent control with no lows Treats lows with hasn't had any. Most recent A1C 8.9, up from prior 7.4% in January. Was lower later in the year while he was on Trulicity Family history of T2DM in mother uncle type 1 (not certain) cousin on insulin. Has eyes checked yearly, last eye exam 03/02, denies retinopathy Has elevated pressures and cataract extraction glaucoma surgery Denies neuropathy, was seeing podiatry in the past negative nephropathy, on RAMILA. microalbumin: 12 08/01 HLD on statin. Last LDL 51 as measured on 01/31 Denies CAD. Diet: trys to balance, loves veg/chicken/fish Weight: stable He is scheduled for diabetes education. Had full instruction on insulin injections, administration, storage at last visit. [facility] Medical History Hx of cataract Tubular adenoma Diverticulosis Internal hemorrhoids without complication Glaucoma Diabetes mellitus, type II Hyperlipidemia HTN (hypertension) Surgical History Hx of colonoscopy History of surgical procedure on eye proper using laser Family History Mother HTN (hypertension) High cholesterol Diabetes Pacemaker Social History Household Members: Significant Other Alcohol intake: never Patient Tobacco Use Status: Never used Tobacco Physical Exam Vital Signs: Last Vital Signs Pulse 75 05/12/24 15:24 BP 128/76 05/12/24 15:24 BMI result Body Mass Index 30.2 Const Other: Absence of Cushingoid features. Absence of acromegalic features. Neck exam reveals nl size thyroid about 15 gms. No thyroid nodules palpable. No carotid bruits present. Lungs CTA. Heart S1 S2, Reg R/R. No M/R G. Skin exam reveals absence of vitiligo or acanthosis nigricans. No edema Results Reviewed Results Reviewed: Laboratory Last Values Glucose (Clinic) 120 mg/dL (60-115) H 05/12/24 15:29 Assessment & Plan Assessment & Plan (1) Diabetes mellitus, type II: Code(s): E11.9 - Type 2 diabetes mellitus without complications Category: Medical Plan: Type 2 diabetic who had an escalation in glucose readings after GLP 1 agonist was discontinued after bout of pancreatitis. He is now doing well in his recent download shows excellent glycemic control. Continue current treatment. The patient had an opportunity to ask questions regarding treatment plan. The patient expressed understanding and agreement with the above treatment plan. The patient is aware they should contact our office by phone for worsening glucose readings or for any low blood sugars which may warrant a change in diabetes medication. Compliance is encouraged with medications and any followup testing/consults which may have been ordered. Medications: New empagliflozin (Jardiance) 10 mg PO DAILY 90 tabs 3RF 90 days E11.9 - Type 2 diabetes mellitus without complications Changed From insulin glargine 24 units (0.24 mL) subcut QPM 30 days 9 mL 4RF E11.9 - T ype 2 diabetes mellitus without complications To insulin glargine (Basaglar KwikPen U-100 Insulin) 26 units (0.26 mL) subcut QPM 18 mL 4RF 60 days E11.9 - Type 2 diabetes mellitus without complications Patient Instructions: The patient was counseled to always carry a source of sugar and on the rule of 15's: Take 3 glucose tablets and repeat again in 15 minutes if blood sugar is not in normal range. Continue to repeat every 15 minutes until blood sugar is normal. The patient was counseled to achieve a target A1C of 7% (154 avg). Fasting blood sugars should be 90-130 in the morning and less than 180 two hours after meals. Reviewed the relationship between poor diabetic control and the development of complications. Wear closed toe shoes, never walk barefooted and inspect the feet daily. For any signs of infection or open wound patient you should notify your PCP or go to urgent care/ER. Coding Level of Care Code Est Pt Level 4 (19406) Complex EM visit Add On G2211 Diagnoses Diabetes mellitus, type II E11.9 Time Spent (min) 45 Comment Time spent reviewing labs/provider notes, face to face, chart doc
[2024-05-12 15:24] VITALS: BP 128/76; PULSE 75; BMI 30.2
[2024-05-12 15:34] LABS: Glucose, Whole Blood 120 mg/dL (60-115)
== END 2024-05-12 15:51 | disposition home or self-care (01) ==
PROVIDERS: PCP Hospitalist; Visit Provider Nurse Practitioner Adult Health
DX: E11.9 Type 2 diabetes mellitus without complications (principal)
CPT/HCPCS: 99214; G2211

== ENCOUNTER → 2024-05-12 15:14 | Outpatient (BNVA) | payer OTHER, SELFPAY | PROVIDERS: PCP Hospitalist; Visit Provider Nurse Practitioner Adult Health | DX: E11.9 Type 2 diabetes mellitus without complications (principal) | CPT/HCPCS: 82947; 99212 ==

== ENCOUNTER 2024-06-22 15:34 | Outpatient (AMB) | payer OTHER, SELFPAY ==
--- NOTE | 2024-06-22 16:08 | MHC.AMDMED ---
Intake Intake Visit Reasons: 60 min-confirmed Orthopedic Shoes Salesperson Required: No Accompanied by: Self / Same As Patient Allergies No Known Allergies Allergy (Verified 05/12/24 15:24) HPI Comprehensive Diabetes Asmnt Most Recent Diabetes Results: Microalb/Creat Ratio 12.0 ug/mg cr (<30) 04/25/24 Cholesterol 105 mg/dL (<200) 01/27/24 HDL Cholesterol 31 mg/dL (>40) L 01/27/24 Triglycerides 115 mg/dL (<150) 01/27/24 Creatinine 0.96 mg/dL (0.5-1.4) 04/25/24 Blood Urea Nitrogen 15 mg/dL (9-16) 04/25/24 Sodium 140 mmol/L (135-145) 04/25/24 Potassium 3.5 mmol/L (3.3-5.1) 04/25/24 Chloride 104 mmol/L (96-108) 04/25/24 Carbon Dioxide 27 mmol/L (22-29) 04/25/24 Calcium 9.8 mg/dL (8.4-10.2) 04/25/24 AST 14 U/L (5-37) 04/25/24 ALT 19 U/L (0-40) 04/25/24 Total Protein 7.0 g/dL (6.5-8.0) 04/25/24 Albumin 4.2 g/dL (3.5-5.0) 04/25/24 [facility] Medical History Hx of cataract Tubular adenoma Diverticulosis Internal hemorrhoids without complication Glaucoma Diabetes mellitus, type II Hyperlipidemia HTN (hypertension) Surgical History Hx of colonoscopy History of surgical procedure on eye proper using laser Family History Mother HTN (hypertension) High cholesterol Diabetes Pacemaker Social History Household Members: Significant Other Alcohol intake: never Patient Tobacco Use Status: Never used Tobacco Assessment & Plan Assessment & Plan (1) Diabetes mellitus, type II: Code(s): E11.9 - Type 2 diabetes mellitus without complications Plan: Diabetes self-management education and support participation record Assessment/scale: 1= needs instructed? 2= needs review? 3= comprehend keep point? 4= demonstrates understanding/ competent? NC= Not Covered Topics Learning Objective: Initial visit Initial or post srvc Initial or post srvc Initial or post srvc Initial or post srvc Initial or post srvc Post srvc Comments Pre Edu-assessment/plan Outcome or reassess Outcome or reassess Outcome or reassess Outcome or reassess Outcome or reassess Outcome or reassess Diabetes pathophysiology 1 3 Healthy eating 1 3 Being active 2 3 Taking medication 2 3 Monitoring glucose 2 3 Acute complication 1 3 Chronic complicated 1 3 Lifestyle and healthy coping 2 Diabetes distress in support 2 ?Diabetes pathophysiology: ?Defined diabetes med identify own type of diabetes; list 3 options for treating diabetes Healthy eating: ?Described effect of type, amount and ?timing of food on blood glucose; list 3 methods for planning meal Being active: ?State effect of exercise on blood glucose level Taking medication: ?State effect of diabetes medications on diabetes; name diabetes medications taking, action and side effects Monitoring glucose: ?Identify recommended blood glucose targets and personal target Acute complication: ?List symptoms and treatment of hyper and hypoglycemia, DKA, sick day guidelines and guidelines for severe weather or situations of crisis and diabetes supply manage Chronic complication: ?To find the relationship of blood glucose levels to long-term complications of diabetes in screening and preventative measures Lifestyle and healthy coping: ?Described lifestyle and healthy coping strategies to rule out diabetes self-management Diabetes to stress and support: ?Recognize Diabetes to stress and be able to identified support options Learning objectives: The patient was provided with verbal and written education on the following topics as outlined below. Patient questions/concerns: Patient's last A1c in 03/29/2024 was 8.9%. Patient is currently using freestyle Marleen 3 to monitor glucose levels Patient's average glucose for the past 14 days 144 mg/dL Patient above target 19% Target 81% Below target 0% Patient reports he has been taking Lantus 28 units daily, there are 2-3 episodes of hypoglycemia overnight and in the a.m. when he wakes up. Suggested to patient to reduce Lantus back to 26 units daily as prescribed, if overnight and morning hypoglycemia continues he can further reduce dose to 24 units. The patient met all learning objectives and was able to verbalize understanding and provide teach back of education topics discussed . The patient was provided with the opportunity to ask questions and all questions were answered. Topics covered in today?s session included: Medications (If applicable) Name of medication? Dosing/administration instructions? Mechanism of action? Potential side effects? Potential adverse reaction and appropriate treatment? Review onset, peak, duration Assess for concerns re: insurance coverage, cost, barriers to compliance Insulin/Injectables (If applicable) Storage/care of insulin?? Injection sites? Site rotation? Onset, peak, duration Drawing up insulin? Injecting insulin/other injectables? Sharps disposal Continuous blood glucose monitoring (if applicable) Hypoglycemia and Hyperglycemia Signs and symptoms? Causes?? Treatment? Preventing hypoglycemia? When to seek medical attention Target Goals: Blood glucose targets and how you feel when your blood glucose is in and out of your target ranges. Monitoring and knowing your A1C. What can make blood glucose go up and down and preventing high and low blood glucose. Review of blood sugar targets in expected goal range and outside of expected goal range. Problem solving and preventing hyper/hypoglycemia. Sick day management of diabetes. Using blood sugar results in decision making process in managing diabetes. ?Patient was receptive to information provided and participated in the discussion. Asked?appropriate questions and demonstrated good understanding of the topics discussed.? ? Educational Materials: The patient was provided with the following written educational materials: Target Goal handout Smart Goal Assessment:? Patient will keep mealtime portions to 45-60 g per meal Pt met goal 75% New Smart Goal: Patient will use rule of 15s to treat low blood sugar Patient Response to instructions: Comprehension of Instructions: good Readiness to make changes:? action How confident they feel about making changes: Positive Portions of this note were created using voice recognition software, please excuse any words or phrases that may have been misinterpreted. Smart Goal: Coding Level of Care Code Est Pt Level 1 (35887) Diagnoses Diabetes mellitus, type II E11.9
== END 2024-06-22 16:13 | disposition home or self-care (01) ==
PROVIDERS: PCP Hospitalist; Visit Provider Registered Nurse Diabetes Educator
DX: E11.9 Type 2 diabetes mellitus without complications (principal)

== ENCOUNTER → 2024-06-22 15:34 | Outpatient (BNVA) | payer OTHER, SELFPAY | PROVIDERS: PCP Hospitalist; Visit Provider Registered Nurse Diabetes Educator | DX: E11.9 Type 2 diabetes mellitus without complications (principal) | CPT/HCPCS: 99211 ==

== ENCOUNTER 2024-07-05 15:30 | Outpatient (AMB) | payer OTHER, SELFPAY ==
--- NOTE | 2024-07-05 15:38 | MHC.OFFVIS ---
Vital Signs 07/05/24 15:42 Height 5 ft 8 in Weight 202 lb 6.15 oz BMI 30.8 BP 130/71 Blood Pressure Location Rt brachial Position Sitting Pulse 56 Intake Visit Reasons: 3 month follow up Intake Note: Don presents in follow up of diverticulosis. CC: Reports occasional constipation alternating with diarrhea. Patient c/o urinating a lot and having one testicle bigger than other and states that this has been going on for about 20 years. 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 All his blood work is normal. Pancreatic insufficiency ruled out. No pancreatitis. Patient reports that he is feeling well. His blood sugars however are not controlled very well. Message sent to endocrinology provider Jackie Santacruz NP requesting a consult. Patient will follow-up in our office in 3 months, sooner on as needed basis. Patient is agreeable to this plan and verbalizes understanding of instructions. He was given the opportunity to ask questions and all questions answered. ? Thank you for allowing me to participate in his care Orders Referrals Endocrinology Referral E11.9 TODAY'S VISIT Patient is here today for follow-up. Patient has seen endocrinology 3 times since we send the referral. Last office visit was in the beginning of May and Jardiance was added to his regimen. Patient is having urinary frequency now which I explained that this is what the medication is meant to do. Patient was encouraged to drink water to prevent urinary tract infections. Patient denies any urinary burning is requesting to see urologist. Patient denies melena, hematochezia, unintentional weight loss or ribbon like stools. Patient denies any dyspepsia, dysphagia or odynophagia. Patient reports that he is moving his bowels without any issues. Denies any abdominal pain or discomfort. His last blood sugar in the office was 120. PFSH Medical History Hx of cataract Tubular adenoma Diverticulosis Internal hemorrhoids without complication Glaucoma Diabetes mellitus, type II Hyperlipidemia HTN (hypertension) Surgical History Hx of colonoscopy History of surgical procedure on eye proper using laser Family History Mother HTN (hypertension) High cholesterol Diabetes Pacemaker Social History Household Members: Significant Other Alcohol intake: never Patient Tobacco Use Status: Never used Tobacco Review of Systems Const Denies weight gain and Denies weight loss ENT Reports no additional complaints, Denies dysphagia and Denies odynophagia Card Reports no additional complaints Resp Reports no additional complaints GI Denies abdominal pain, Denies belching, Denies melena, Denies bloating, Denies change in bowel habits, Denies dysphagia, Denies excessive flatus, Denies dyspepsia, Denies heartburn, Denies diarrhea, Denies loose stools, Denies nausea, Denies odynophagia and Denies vomiting Reports urinary frequency Musc Reports no additional complaints Neuro Reports no additional complaints Psych Reports no additional complaints Endo Reports no additional complaints Physical Exam Vital Signs: Last Vital Signs Pulse 56 07/05/24 15:42 BP 130/71 07/05/24 15:42 BMI result Body Mass Index 30.8 Const General: healthy appearing and no acute distress Nutritional Appearance: obese Orientation/consciousness: patient oriented x3 Resp Effort & Inspection: normal respiratory effort, able to speak in complete sentences, no tracheal deviation and symmetric chest movement Auscultation: clear to auscultation bilaterally Cardio Rate: regular rate GI Inspection: Yes normal to inspection, No distended and Yes obesity Palpation (GI): Soft to palpation, not firm, nontender and No hepatosplenomegaly present Auscultation: normal bowel sounds General: Yes no CVA tenderness Back/Spine/Pelvis Back: no CVA tenderness Skin General skin exam: elasticity normal, turgor normal and dry skin Neuro General: patient oriented x3 Psych Appearance: grossly normal Mental Status: mental status grossly normal Assessment & Plan Assessment & Plan (1) Diverticulosis: Code(s): K57.90 - Diverticulosis of intestine, part unspecified, without perforation or abscess without bleeding Category: Medical (2) Tubular adenoma: Code(s): D36.9 - Benign neoplasm, unspecified site Category: Medical (3) History of acute pancreatitis: Code(s): Z87.19 - Personal history of other diseases of the digestive system Plan Referral to Urology per patient's request although his symptoms of urinary frequency is most likely related to Jardiance. Patient was instructed to drink more fluids. Patient denies any abdominal pain or discomfort. Denies any melena, hematochezia, unintentional weight loss or ribbon like stools. Patient was encouraged to continue with diet and follow-up with nurse informatics educator and endocrinology. Patient will follow-up in this office in 6 months, sooner on as needed basis. He is agreeable to this plan and verbalizes understanding of instructions. He was given the opportunity to ask questions and all questions answered. Thank you for allowing me to participate in his care Orders: Referrals Urology Referral Z87.898 - Personal history of other specified conditions Medications: Discontinued ondansetron Discontinued Reason: Patient no longer taking 4 mg PO Q8H PRN 10 tabs 0RF nausea and vomiting morphine Partial Fill upon patient request. Discontinued Reason: Patient no longer taking 15 mg PO Q6H 3 days PRN 12 tabs 0RF pain (scale score 7-10) Coding Level of Care Code Est Pt Level 3 (37532) Diagnoses Diverticulosis K57.90 Tubular adenoma D36.9 History of acute pancreatitis Z87.19 Time Spent (min) 30 Comment 20 minutes spent with patient and additional 10 minutes spent reviewing his records
[2024-07-05 15:42] VITALS: BP 130/71; PULSE 56; BMI 30.8
== END 2024-07-05 16:06 | disposition home or self-care (01) ==
PROVIDERS: PCP Hospitalist; Visit Provider Nurse Practitioner Family
DX: K57.90 Diverticulosis of intestine, part unspecified, without perforation or abscess without bleeding (principal); D36.9 Benign neoplasm, unspecified site; Z87.19 Personal history of other diseases of the digestive system
CPT/HCPCS: 99213

== ENCOUNTER → 2024-07-05 15:30 | Outpatient (BNVA) | payer OTHER, SELFPAY | PROVIDERS: PCP Hospitalist; Visit Provider Nurse Practitioner Family | DX: K57.90 Diverticulosis of intestine, part unspecified, without perforation or abscess without bleeding (principal); D36.9 Benign neoplasm, unspecified site; Z87.19 Personal history of other diseases of the digestive system; Z87.898 Personal history of other specified conditions | CPT/HCPCS: 99212 ==

== ENCOUNTER 2024-08-16 14:15 | Outpatient (AMB) | payer MEDICARE, SELFPAY ==
--- NOTE | 2024-08-16 14:18 | A.OFFVIS_ITS ---
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 Liaison Required: No Accompanied by: Self / Same As Patient Allergies No Known Allergies Allergy (Verified 08/16/24 14:19) [facility] Medical History Hx of cataract Tubular adenoma Diverticulosis Internal hemorrhoids without complication Glaucoma Diabetes mellitus, type II Hyperlipidemia HTN (hypertension) Surgical History Hx of colonoscopy History of surgical procedure on eye proper using laser Family History Mother HTN (hypertension) High cholesterol Diabetes Pacemaker Social History Household Members: Significant Other Alcohol intake: never Patient Tobacco Use Status: Never used Tobacco Physical Exam Vital Signs: Last Vital Signs Pulse 83 08/16/24 14:26 BP 120/80 08/16/24 14:26 BMI result Body Mass Index 31.2 Results AMB Hemoglobin A1c AMB Hemoglobin A1c 7.9 % Last Edit by MARILEE Douglas on 08/16/24 14:40 Results Reviewed Results Reviewed: Laboratory Last Values Glucose (Clinic) 175 mg/dL (60-115) H 08/16/24 14:30 Assessment & Plan Assessment & Plan Orders: Orders AMB Hemoglobin A1c Today E11.9 - Type 2 diabetes mellitus without complications Coding
[2024-08-16 14:26] VITALS: BP 120/80; PULSE 83; BMI 31.2
[2024-08-16 14:34] LABS: Glucose, Whole Blood 175 mg/dL (60-115)
== END 2024-08-16 15:01 | disposition home or self-care (01) ==
PROVIDERS: PCP Hospitalist; Visit Provider Nurse Practitioner Adult Health
DX: E11.9 Type 2 diabetes mellitus without complications (principal)

== ENCOUNTER → 2024-08-16 14:15 | Outpatient (BNVA) | payer OTHER, SELFPAY | PROVIDERS: PCP Hospitalist; Visit Provider Nurse Practitioner Adult Health | DX: E11.9 Type 2 diabetes mellitus without complications (principal); Z79.4 Long term (current) use of insulin | CPT/HCPCS: 82947; 83036; 99212 ==

== ENCOUNTER 2024-09-12 14:47 | Outpatient (AMB) | payer MEDICARE, SELFPAY ==
--- NOTE | 2024-09-12 14:49 | MHC.OFFVIS ---
Intake Visit Reasons: disorder of scrotum Intake Note: Patient is present for Disorder of Scrotum Urology Medication:NONE Antibiotic Allergy:NONE Blood Thinner:NONE Hair Cutter Required: No Accompanied by: Self / Same As Patient Allergies No Known Allergies Allergy (Verified 09/12/24 14:50) Medication List - Last Reconciled 09/12/24 by Marilyn Astudillo MD amlodipine 10 mg PO DAILY chlorthalidone 25 mg PO DAILY empagliflozin (Jardiance) 10 mg PO DAILY 30 days fluticasone propionate 50 mcg/actuation 1 spray intranasal DAILY FreeStyle Marleen 3 Sensor (blood-glucose sensor) every 15 days for continous glucose readings NS glimepiride 4mg am 2mg supper orally daily; 30 days Lantus Solostar U-100 Insulin (insulin glargine) 24 units (0.24 mL) subcut QPM 90 days NS lisinopril 40 mg PO DAILY metformin 1,000 mg PO BID pen needle, diabetic (BD Ultra-Fine Sharon Pen Needle) As directed once daily simvastatin 20 mg PO BEDTIME tamsulosin (Flomax) 0.4 mg PO BEDTIME timolol maleate 0.5% drps ophthalmic (eye) DAILY HPI Comments Details: Don is a 69-year-old male who is here for evaluation he has concerns regarding right scrotal swelling. He denies pain. He also complains of getting up frequently at nighttime. Denies dysuria. AUA symptom score 15/35. Patient was unable to give urine sample bladder scan PVR 111 mL. Review of chart PSA-01/09/24--2.15 ng/mL. I have discussed trial of tamsulosin 0.4 mg at bedtime. Discussed side effects include retrograde ejaculation. Will check ultrasound urinary tract including scrotum. Examination right testicular swelling suggestive of right hydrocele. Testicles nontender. COUNTS INCLUDE 234 BEDS AT THE [facility] Medical History Hx of cataract Tubular adenoma Diverticulosis Internal hemorrhoids without complication Glaucoma Diabetes mellitus, type II Hyperlipidemia HTN (hypertension) Surgical History Hx of colonoscopy History of surgical procedure on eye proper using laser Family History Mother HTN (hypertension) High cholesterol Diabetes Pacemaker Social History Household Members: Significant Other Alcohol intake: never Patient Tobacco Use Status: Never used Tobacco Review of Systems Const All systems reviewed & are unremarkable except as noted in HPI and below Reports no additional complaints Eyes Reports no additional complaints ENT Reports no additional complaints Card Reports no additional complaints Resp Reports no additional complaints GI Reports no additional complaints Reports as per HPI Musc Reports no additional complaints Skin/Breast Reports system reviewed and no additional complaints, except as documented Neuro Reports no additional complaints Psych Reports no additional complaints Endo Reports no additional complaints Tony/Lymph Reports no additional complaints Aller/Immun Reports no additional complaints Physical Exam Const General: healthy appearing, no acute distress and well developed Orientation/consciousness: patient oriented x3 HEENT Head: Yes normocephalic and Yes atraumatic Eyes Conjunctivae: conjunctivae normal Neck Neck: Yes normal visual inspection Chest Chest palpation & inspection: normal inspection of the chest Resp Effort & Inspection: normal respiratory effort GI Inspection: Yes normal to inspection Palpation (GI): Soft to palpation Other: Right jatin scrotal swelling suggestive of right hydrocele, testicles nontender Penis: normal penis Neuro General: patient oriented x3 Psych Appearance: grossly normal Affect: normal affect Office Procedures Post Void Residual Post Residual Void Post Void Residual (PVR): 111 [id number]-[id number] Void Residual by ultrasound Quality Reporting (2019) Benign Prostatic Hyperplasia ([facility] 771) AUA symptom score: 15 Quality of life due to urinary symptoms: If you were to spend the rest of your life with your urinary condition the way it is now, how would you feel about that?: Mixed: about equally satisfied and dissatisfied Assessment & Plan Assessment & Plan (1) Nocturia more than twice per night: Code(s): R35.1 - Nocturia Category: Medical (2) BPH loc w urin obs/LUTS: Code(s): N40.1 - Benign prostatic hyperplasia with lower urinary tract symptoms Category: Medical (3) Scrotal swelling: Code(s): N50.89 - Other specified disorders of the male genital organs Category: Medical (4) Hydrocele, right: Code(s): N43.3 - Hydrocele, unspecified Category: Medical Plan Tamsulosin 0.4 mg daily, scrotal ultrasound, kidney bladder ultrasound Orders: Orders US retroperitoneal comp Today N40.1 - Benign prostatic hyperplasia with lower urinary tract symptoms, R35.1 - Nocturia US scrotum Today N43.3 - Hydrocele, unspecified, N50.89 - Other specified disorders of the male genital organs Medications: New tamsulosin (Flomax) 0.4 mg PO BEDTIME 90 caps 3RF Patient Instructions: The patient had an opportunity to ask questions regarding treatment plan. The patient expressed understanding and agreement with the above treatment plan. The patient is aware they should contact our office by phone for worsening of their current condition or the appearance of new symptoms. Compliance is encouraged with any medications and followup testing that is ordered. It is a privilege to be allowed the opportunity to participate in the urologic care of your patient. If you have any questions or concerns regarding treatment for the above conditions please do not hesitate to contact me. The office telephone contact is [phone]. This note is constructed in part using voice recognition software. While every effort has been made to ensure accuracy jawbone breaker errors may have been included. Yours sincerely, Marilyn Astudillo MD Coding Level of Care Code New Pt Level 4 (21961) Diagnoses Nocturia more than twice per night R35.1 BPH loc w urin obs/LUTS N40.1 Scrotal swelling N50.89 Hydrocele, right N43.3 CPT Codes Post Residual Void - PVR CPT Code: 26371-Atap Void Residual by ultrasound ([id number]) AUA Symptom Score AUA Incomplete emptying - It does not feel like I empty my bladder all the way.: 3 - About half the time Frequency - I have to go again less than two hours after I finish urinating.: 2 - Less than half the time Intermittency - I stop and start again several times when I urinate.: 1 - Less than 1 time in 5 Urgency - It is hard to wait when I have to urinate.: 1 - Less than 1 time in 5 Weak stream - I have a weak urinary stream.: 3 - About half the time Straining - I have to push or strain to begin urination.: 2 - Less than half the time Nocturia - I get up to urinate after I go to bed until the time I get up in the morning.: 3 times AUA Symptom Score: 15 Quality of life due to urinary symptoms: If you were to spend the rest of your life with your urinary condition the way it is now, how would you feel about that?: Mixed: about equally satisfied and dissatisfied Source: Scott TAPIA, Murphy LANDERS Jr, O'Milton MP, et al, and the Measurement Committee of the [employer]. The [employer] symptom index for benign prostatic hyperplasia. J Urol. 1992; 148: 2858-1336. Copyright 1992 [employer]
== END 2024-09-12 15:48 | disposition home or self-care (01) ==
LOC: HO.HUSH 14:47
PROVIDERS: PCP Hospitalist; Visit Provider Urology
DX: N40.1 Benign prostatic hyperplasia with lower urinary tract symptoms (principal); R35.1 Nocturia; N50.89 Other specified disorders of the male genital organs; N43.3 Hydrocele, unspecified
CPT/HCPCS: 99204

== ENCOUNTER → 2024-09-12 14:47 | Outpatient (BNVA) | payer MEDICARE, SELFPAY | PROVIDERS: PCP Hospitalist; Visit Provider Urology | DX: N40.1 Benign prostatic hyperplasia with lower urinary tract symptoms (principal); R35.1 Nocturia; N50.89 Other specified disorders of the male genital organs; N43.3 Hydrocele, unspecified | CPT/HCPCS: 51798; 99202 ==

== ENCOUNTER 2024-09-28 14:09 | Outpatient (REF) | payer MEDICARE, SELFPAY ==
--- NOTE | ~2024-09-28 | US_ITS ---
CLINICAL HISTORY: N50.89 - Other specified disorders of the male genital organs US Scrotum with Doppler Comparison: None Findings: Right testicle normal size and echotexture, 4.8 x 2.8 x 2.9 cm. Right appendix testis noted at 3 x 5 x 4 mm Left testicle at 4.7 x 2.4 x 3.2 cm. Mild microlithiasis. Left appendix testis noted at 4 x 4 x 4 mm. Normal color flow and arterial/venous spectral tracing of both testicles. Right epididymal cysts at 12 x 9 mm and 5 x 5 mm. Large right hydrocele at 13.2 x 6.8 x 6.7 cm. No varicoceles. No hydroceles. Left epididymis appears mildly hyperemic with possible varicocele although no imaging with Valsalva. IMPRESSION: Large right hydrocele. No left hydrocele. Possible left varicocele. Mild left testicular microlithiasis. Otherwise normal testicles. This document has been electronically signed by: Luis Antonio Velasquez MD on 09/29/2024 11:36:22
--- NOTE | ~2024-09-28 | US_ITS ---
CLINICAL HISTORY: R35.1 - Nocturia US Renal Comparison: None Findings: Right kidney normal size and echotexture, 11.8 cm length. Left kidney normal size and echotexture, 12.9 cm length. 1 cm midpole cyst. 5 mm echogenic focus suggesting small stone versus vascular calcification. No collecting system dilatation of either kidney. Normal color Doppler. Urinary bladder is unremarkable. Prevoid volume 255 mL. Postvoid volume 13 mL. Bilateral ureteral jets are visualized. Prostate at 2.6 x 4.6 x 4.9 cm with volume calculated 31 mL. IMPRESSION: Normal right kidney. Small left renal cyst and possible nonobstructing 5 mm stone. Otherwise normal left kidney. Bladder volumes as above. Mildly enlarged prostate. This document has been electronically signed by: Luis Antonio Velasquez MD on 09/29/2024 11:28:39
--- OUTSIDE RECORDS SUMMARY | 2024-09-28 14:19 | XMS_ITS | Patient Health Record ---
Author Organization [facility] Address [address] [place] [address] Care Team Providers Care Retail Support Associate Name Role Phone ELLY BRICE Primary Care Provider Fanny Pelaez Unavailable [phone] Allergies Allergen (clinical drug ingredient) Drug/Non Drug Allergy documented on EMR Reaction Allergy Type Onset Date Status dulaglutide Trulicity pancreatitis Drug Allergy Ac tive Reason For Referral Reason Evaluation and manag ement - Insulin teaching Diagnosis 1 Type 2 diabetes mani itus with unspecified complications (E11.8) Referral Organization [facility] Referring Provider First Name Fanny Referring Provider Last Name Benigno Referred Provider Specialty Other Medica l Care General Notes Referral faxed to Rajinder lockhart - Dept will call patient for scheduling.Case Latraya 02/25/2024 02:59:45 PM > Referral Priority Routine Medications Medication SIG (Take, Route, Frequency, Duration) Notes Start Date End Date Status Jardiance 10 MG 1 tablet Orally Once a day for 90 days 08/19/2024 Active FreeStyle Marleen 2 Sensor - CHANGE EVERY 14 DAYS for 30 days Active metFORMIN HCl 1000 MG 1 tablet with a me al Orally twice a day for 90 days Active Morphine Sulfate 15 MG 1 tablet as neede d Orally every 4 hrs for 5 days 01/15/2024 Active Fluticasone Propionate 50 MCG/ACT 1 spray in each nostril Nasally Once a day for 90 days 09/01/2023 Active Lantus 100 UNIT/ML as directed take 15 units Subcutaneous at bedtime for 30 days 02/25/2024 Not-Taking Glimepiride 2 MG TAKE 1 TABLET DAILY WITH BREAKFAST OR FIRST MAIN MEAL OF THE DAY for 90 days Active FreeStyle Marleen 14 Day [place] - as directed four times a day for 30 days 07/30/2022 Active amLODIPine Besylate 10 MG 1 tablet Orall y Once a day for 90 days Active Latanoprost 0.005 % 1 drop into affected eye in the evening Ophthalmic Once a day Not-Taking Tresiba FlexTouch 100 UNIT/ML as directed Subcutaneous Not-Taking Blood Pressure - as directed once a d ay for 30 days 03/01/2021 Active Lisinopril 40 MG 1 tablet Orally Once a day for 90 days Active Ondansetron 4 MG 1 tablet on the tong ue and allow to dissolve Orally Once a day for 10 days Active Lantus 100 UNIT/ML 34 units Subcutaneou s Daily for 30 days 08/19/2024 Active Chlorthalidone 25 MG 1/2 tablet Orally o nce a day for 90 days Active Simvastatin 20 MG 1 tablet in the even ing Orally Once a day for 90 days Active Immunizations Vaccine Route Administration Date Status Comme nts COVID Unknown 11/21/2020 Administered Pfizer COVID Moderna Unknown 10/23/2020 Administered COVID Moderna Unknown 12/04/2021 Administered Flu Unknown 04/27/2023 Administered Flu High-Dose Unknown 05/13/2022 Administered Influenza (split), seasonal, intradermal, preservative free Unknown 05/04/2021 Administered Shingrix Unknown 07/06/2022 Administered Shingrix Unknown 03/02/2023 Administered Social History Tobacco Use: Social History Observation Description Date Details (start date - stop date) Never Smoker NA - NA Tobacco Use/Smoking Question Answer Notes Are you a nonsmoker Alcohol Screen (Audit-C) Question Answer Notes Did you have a drink containing alcohol in the p ast year? 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) Type 2 diabetes mellitus with unspecified complications (E11.8) Active confirmed Problem Mixed hyperlipidemia (015623025) Mixed hyperlipidemia (E78.2) Active confirmed Problem Sleep apnea (25799461) Sleep apnea, unspecified (G47.30) Active confirmed Problem Glaucoma (69012195) Unspecified glaucoma (H40.9) Active confirmed Problem Essential hypertension (02087093) Essential (primary) hypertension (I10) Active confirmed Problem Obstructive uropathy (6944838) Other obstructive and reflux uropathy (N13.8) Active confirmed Vital Signs Heart Rate 85 /min 04/29/2024 Temperature 97.2 degrees Fahrenheit 04/29/2024 Blood pressure diastolic 70 mm Hg 04/29/2024 Oximetry 97 % 04/29/2024 Height 67 in 04/29/2024 Blood pressure systolic 120 mm Hg 04/29/2024 Weight 198.4 lbs 04/29/2024 BMI 31.07 kg/m2 04/29/2024 Encounters Encounter Location Date Provider Diagnosis [facility] [address] [place] [address] 01/15/2024 BRICE GUL Type 2 diabetes mellitus with unspecified complications E11.8 ; Acute pancreatitis without necrosis or infection, unspecified K85.90 ; Essential (primary) hypertension I10 ; Mixed hyperlipidemia E78.2 and Sleep apnea, unspecified G47.30 [facility] [address] [place] [address] 02/25/2024 Fanny Pelaez Type 2 diabetes mellitus with unspecified complications E11.[address] [place] [address] 04/29/2024 BRICE GUL Type 2 diabetes mellitus with unspecified complications E11.8 ; Essential (primary) hypertension I10 and Mixed hyperlipidemia E78.2 [facility] [address] [place] [address] 10/17/2023 BRICE GUL [facility] [address] [place] [address] 10/17/2023 BRICE GUL [facility] [address] [place] [address] 10/26/2023 BRICE GUL Postnasal drip R09.8 2 [facility] [address] [place] [address] 01/12/2024 BRICE GUL Type 2 diabetes mellitus with unspecified complications E11.[address] [place] [address] 01/13/2024 BRICE GUL [facility] [address] [facility] [address] 01/15/2024 BRICE GUL [facility] [address] [place] [address] 01/18/2024 [facility] [address] [facility] [address] 01/28/2024 [facility] [address] [facility] [place] [address] 02/01/2024 BRICE GUL [facility] [address] [facility] [address] 02/07/2024 [facility] [address] [facility] [facility] [address] 02/10/2024 [facility] [address] [facility] [address] 02/18/2024 [facility] GUL [facility] [address] [facility] [address] 02/22/2024 [facility] [address] [facility] [facility] [address] 02/22/2024 [facility] [address] [facility] [facility] [address] 02/23/2024 [facility] [address] [facility] [address] 03/01/2024 [facility] GUL [facility] [address] [facility] [address] 03/02/2024 [facility] [address] [facility] [facility] [address] 03/02/2024 [facility] [address] [facility] [address] 03/10/2024 [facility] [address] [place] [address] 03/16/2024 [facility] [address] [place] [address] 05/20/2024 [facility] [address] [place] [address] 05/24/2024 [facility] [address] [place] [address] 06/10/2024 [facility] Type 2 diabetes mellitus with unspecified complications E11.8 [facility] [address] [place] [address] 06/10/2024 [facility] [address] [place] [address] 06/10/2024 [facility] [address] [place] [address] 07/11/2024 [facility] [address] [place] [address] 08/19/2024 [facility] [address] [place] [address] 08/19/2024 [facility] Postnasal drip R09.8 2 [facility] [address] [place] [address] 08/26/2024 [facility] [address] [place] [address] 08/30/2024 [facility] [address] [place] [address] 09/27/2024 [facility] Assessments Encounter Date Diagnosis (ICD Code) Assessment Notes Treatment Notes Treatment Clinical Notes Section Notes 10/26/2023 Postnasal drip (ICD-10 - R09.82) 01/12/2024 Type 2 diabetes mellitus with unspecified complications (ICD-10 - E11.8) 02/25/2024 Type 2 diabetes mellitus with unspecified complications (ICD-10 - E11.8) Mr. Myles is a 68 year old gentleman with DM type II, hypertension, hyperlipidemia here for diabetic medication discussion. Plan as follows: DM2: He is currently on Metformin, Fraxiga 5mg and we just added lantus 15 units. Don mentions that his sugars been high since Trulicity has been discontinued due to side effect of pancreatitis. Advised patient on increasing Insulin units 2-4 every 3 days until he reaches the goal of FG below 130 and postprandial below 180. Diet modification is highly recommended. We will also send a nurse for insulin teaching. I have rendered the services for this patient under direct supervision of Dr. Sanabria, who did not see the patient but was available upon request on telephone Chart reviewed and agree with above plan 04/29/2024 Type 2 diabetes mellitus with unspecified complications (ICD-10 - E11.8) Mr. Myles is a 69 year old gentleman with DM type II, hypertension, hyperlipidemia here for follow up. Plan is as follows: Type II diabetes mellitus. Last A1c 8.0. He has started seeing a nurse practitioner Jackie Santacruz at [facility] and has also seen a oil burner installer and his home blood sugar numbers are improving. He is currently on long-acting insulin 34 units along with other medications as mentioned above. He has seen an search strategist for the past year. Foot care discussed. check A1c. Hypertension. Blood pressure well controlled on current regimen. Hyperlipidemia. Continue Simvastatin 20 MG once a day. Screening blood work before next appointment. General health concerns discussed with patient. Scribe services used to formulate this note under HIPAA compliance and under [place] law mandated for scribe services. Patient aware of service. Verbal consent and written consent taken from the patient. Patient understands and verbalizes understanding of the scribes services and all questions answered regarding scribes services. Patient agrees to use of scribes services. 06/10/2024 Type 2 diabetes mellitus with unspecified complications (ICD-10 - E11.8) 08/19/2024 Postnasal drip (ICD-10 - R09.82) 01/15/2024 Type 2 diabetes mellitus with unspecified complications (ICD-10 - E11.8) Mr. Myles is 68 years old pleasant gentleman with DM type II on Trulicity, hypertension, hyperlipidemia, sleep apnea is here today for follow-up after a visit to [facility] ER. He had CT abdomen and pelvis which showed stranding of the pancreas with no gallbladder stones and no other pathology. Plan is as follows Acute pancreatitis. He does not drink alcohol, no gallbladder stones on recent imaging. This is likely secondary to Trulicity. Patient advised to stop Trulicity at this point. Stay hydrated, advance diet as tolerated. He is given a prescription for morphine 15 mg 1 tablet 3 times a day along with Zofran as needed. He is also given a note to be out of work until January 26 and he has appointment with the GI and after that he can go back to work on January 28, 2024. DM type II. His last A1c was 7.4. We will add Farxiga 5 mg to his current regimen and recheck A1c in 3 months Hypertension/hyper lipidemia. Continue on lisinopril 40 mg, chlorthalidone 20 mg and simvastatin 20 mg daily and recheck blood work Obstructive sleep apnea. He sleeps well on CPAP machine and no daytime sleepiness. 01/15/2024 Acute pancreatitis without necrosis or infection, unspecified (ICD-10 - K85.90) Mr. Myles is 68 years old pleasant gentleman with DM type II on Trulicity, hypertension, hyperlipidemia, sleep apnea is here today for follow-up after a visit to [facility] ER. He had CT abdomen and pelvis which showed stranding of the pancreas with no gallbladder stones and no other pathology. Plan is as follows Acute pancreatitis. He does not drink alcohol, no gallbladder stones on recent imaging. This is likely secondary to Trulicity. Patient advised to stop Trulicity at this point. Stay hydrated, advance diet as tolerated. He is given a prescription for morphine 15 mg 1 tablet 3 times a day along with Zofran as needed. He is also given a note to be out of work until January 26 and he has appointment with the GI and after that he can go back to work on January 28, 2024. DM type II. His last A1c was 7.4. We will add Farxiga 5 mg to his current regimen and recheck A1c in 3 months Hypertension/hyper lipidemia. Continue on lisinopril 40 mg, chlorthalidone 20 mg and simvastatin 20 mg daily and recheck blood work Obstructive sleep apnea. He sleeps well on CPAP machine and no daytime sleepiness. 04/29/2024 Essential (primary) hypertension (ICD-10 - I10) Mr. Myles is a 69 year old gentleman with DM type II, hypertension, hyperlipidemia here for follow up. Plan is as follows: Type II diabetes mellitus. Last A1c 8.0. He has started seeing a nurse practitioner Jackie Santacruz at [facility] and has also seen a oil burner installer and his home blood sugar numbers are improving. He is currently on long-acting insulin 34 units along with other medications as mentioned above. He has seen an search strategist for the past year. Foot care discussed. check A1c. Hypertension. Blood pressure well controlled on current regimen. Hyperlipidemia. Continue Simvastatin 20 MG once a day. Screening blood work before next appointment. General health concerns discussed with patient. Scribe services used to formulate this note under HIPAA compliance and under [place] law mandated for scribe services. Patient aware of service. Verbal consent and written consent taken from the patient. Patient understands and verbalizes understanding of the scribes services and all questions answered regarding scribes services. Patient agrees to use of scribes services. 01/15/2024 Essential (primary) hypertension (ICD-10 - I10) Mr. Myles is 68 years old pleasant gentleman with DM type II on Trulicity, hypertension, hyperlipidemia, sleep apnea is here today for follow-up after a visit to [facility] ER. He had CT abdomen and pelvis which showed stranding of the pancreas with no gallbladder stones and no other pathology. Plan is as follows Acute pancreatitis. He does not drink alcohol, no gallbladder stones on recent imaging. This is likely secondary to Trulicity. Patient advised to stop Trulicity at this point. Stay hydrated, advance diet as tolerated. He is given a prescription for morphine 15 mg 1 tablet 3 times a day along with Zofran as needed. He is also given a note to be out of work until January 26 and he has appointment with the GI and after that he can go back to work on January 28, 2024. DM type II. His last A1c was 7.4. We will add Farxiga 5 mg to his current regimen and recheck A1c in 3 months Hypertension/hyper lipidemia. Continue on lisinopril 40 mg, chlorthalidone 20 mg and simvastatin 20 mg daily and recheck blood work Obstructive sleep apnea. He sleeps well on CPAP machine and no daytime sleepiness. 04/29/2024 Mixed hyperlipidemia (ICD-10 - E78.2) Mr. Myles is a 69 year old gentleman with DM type II, hypertension, hyperlipidemia here for follow up. Plan is as follows: Type II diabetes mellitus. Last A1c 8.0. He has started seeing a nurse practitioner Jackie Santacruz at [facility] and has also seen a oil burner installer and his home blood sugar numbers are improving. He is currently on long-acting insulin 34 units along with other medications as mentioned above. He has seen an search strategist for the past year. Foot care discussed. check A1c. Hypertension. Blood pressure well controlled on current regimen. Hyperlipidemia. Continue Simvastatin 20 MG once a day. Screening blood work before next appointment. General health concerns discussed with patient. Scribe services used to formulate this note under HIPAA compliance and under [place] law mandated for scribe services. Patient aware of service. Verbal consent and written consent taken from the patient. Patient understands and verbalizes understanding of the scribes services and all questions answered regarding scribes services. Patient agrees to use of scribes services. 01/15/2024 Mixed hyperlipidemia (ICD-10 - E78.2) Mr. Myles is 68 years old pleasant gentleman with DM type II on Trulicity, hypertension, hyperlipidemia, sleep apnea is here today for follow-up after a visit to [facility] ER. He had CT abdomen and pelvis which showed stranding of the pancreas with no gallbladder stones and no other pathology. Plan is as follows Acute pancreatitis. He does not drink alcohol, no gallbladder stones on recent imaging. This is likely secondary to Trulicity. Patient advised to stop Trulicity at this point. Stay hydrated, advance diet as tolerated. He is given a prescription for morphine 15 mg 1 tablet 3 times a day along with Zofran as needed. He is also given a note to be out of work until January 26 and he has appointment with the GI and after that he can go back to work on January 28, 2024. DM type II. His last A1c was 7.4. We will add Farxiga 5 mg to his current regimen and recheck A1c in 3 months Hypertension/hyper lipidemia. Continue on lisinopril 40 mg, chlorthalidone 20 mg and simvastatin 20 mg daily and recheck blood work Obstructive sleep apnea. He sleeps well on CPAP machine and no daytime sleepiness. 01/15/2024 Sleep apnea, unspecified (ICD-10 - G47.30) Mr. Myles is 68 years old pleasant gentleman with DM type II on Trulicity, hypertension, hyperlipidemia, sleep apnea is here today for follow-up after a visit to [facility] ER. He had CT abdomen and pelvis which showed stranding of the pancreas with no gallbladder stones and no other pathology. Plan is as follows Acute pancreatitis. He does not drink alcohol, no gallbladder stones on recent imaging. This is likely secondary to Trulicity. Patient advised to stop Trulicity at this point. Stay hydrated, advance diet as tolerated. He is given a prescription for morphine 15 mg 1 tablet 3 times a day along with Zofran as needed. He is also given a note to be out of work until January 26 and he has appointment with the GI and after that he can go back to work on January 28, 2024. DM type II. His last A1c was 7.4. We will add Farxiga 5 mg to his current regimen and recheck A1c in 3 months Hypertension/hyper lipidemia. Continue on lisinopril 40 mg, chlorthalidone 20 mg and simvastatin 20 mg daily and recheck blood work Obstructive sleep apnea. He sleeps well on CPAP machine and no daytime sleepiness. Plan Of Treatment Pending Test Test Name Order Date COMPREHENSIVE METABOLIC PANEL 06/15/2023 COMPREHENSIVE METABOLIC PANEL 01/07/2023 HEMOGLOBIN A1C 06/15/2023 HEMOGLOBIN A1C WITH EST GLUCOSE 06/25/20 22 HEMOGLOBIN A1C WITH EST GLUCOSE 01/08/20 23 LIPID PANEL 01/07/2023 LIPID PANEL 06/15/2023 MICROALBUMIN, URINE 06/15/2023 MICROALBUMIN, URINE 01/07/2023 PSA, SCREEN 01/07/2023 PSA, SCREEN 06/25/2022 CBC 07/24/2022 COMPREHENSIVE METABOLIC PANEL 07/24/2022 LIPID PROFILE 07/24/2022 PROSTATIC SPECIFIC ANTIGEN 07/24/2022 MICROSCOPIC, URINE 07/24/2022 Albumin/Creatinine Ratio,[id number] Comp. Metabolic Panel [id number] 2023 Hemoglobin A1c 01/12/2024 Future Test Test Name Order Date Hemoglobin [id number] 04/29/2024 Albumin/Creatinine Ratio,[id number] Lipid Panel-[id number] 04/29/2024 Comp. Metabolic Panel [id number] 2023 Next Appt Details Provider Name:BABS SANABRIA , 10/24/2024 03:30:00 PM, [address] [place] [address], [id number], Insurance Providers Payer Name Payer Address Payer Phone Subscriber Number Group Number Insured Name Patient Relationship to Insured Coverage Start Date Coverage End Date [employer] [address] [address] [place] [address] [id number] Don Myles Self - patient is the insured [facility] [address] [address] [place] [address] [id number] Don Myles Self - patient is the insured 2 Medical (General) History Medical History History ICD Code Hypertension Hyperlipidemia DM type II he sees Jackie Bennett nurse [facility] [place] Glaucoma cataracts Surgical History Surgery Date(Month/Year) Neck surgery by Dr Tessie chirinos laser eye surgery Hospitalization History Reason Date(Month/Year) surgery
--- OUTSIDE RECORDS SUMMARY | 2024-09-28 14:19 | XMS_ITS ---
Author Organization [facility] Address [address] [place] [address] Care Team Providers Care Meter Changes Records Clerk Name Role Phone ELLY BRICE Primary Care Provider REASON FOR VISIT Refills Medications Medication SIG (Take, Route, Frequency, Duration) Notes Start Date End Date Status FreeStyle Marleen 2 Sensor - CHANGE EVERY 14 DAYS for 30 days Active Encounters Encounter Location Date Provider Diagnosis [facility] [address] [place] [address] 08/26/2024 BABS SANABRIA Plan Of Treatment Medication Medication Name Sig Start Date Stop Date Notes FreeStyle Marleen 2 Sensor - CHANGE EVERY 14 DAYS for 30 days Next Appt Details Provider Name:BABS SANABRIA , 10/24/2024 03:30:00 PM, [address] [place] [address] [address], [place], [address], Progress Notes * PETERSONZainaerickaDOB:1955 (69 yo M)Acc No.[id number]:08/26/2024 Patient:?Don MYLES :1955???Age:69 Y???Sex:Male Address:[address], [address] , [place] [address] * Refills? Refill FreeStyle Marleen 2 Sensor Miscellaneous, -, 2, CHANGE EVERY 14 DAYS, 30 days, Refills=5 * true * Date:? Generated for Markusi elias/Carissa/eTransmitting on:?09/28/2024 02:19 PM EST
--- OUTSIDE RECORDS SUMMARY | 2024-09-28 14:19 | XMS_ITS ---
Author Organization [facility] Address [address] [facility] [address] [place] [address] Care Team Providers Care Social Studies Teacher Name Role Phone MORALES SANABRIABRICE Primary Care Provider REASON FOR VISIT Jardiance refill Medications Medication SIG (Take, Route, Fr equency, Duration) Notes Start Date End Date Status Jardiance 10 MG 1 tablet Orally Once a day for 90 days 08/19/2024 Active Encounters Encounter Location Date Provider Diagnosis [facility] 294 [facility] [address] [place] [address] 08/30/2024 BABS SANABRIA Plan Of Treatment Medication Medication Name Sig Start Date Stop Date Notes Jardiance 10 MG 1 tablet Orally Once a day for 90 days 05/2025 Next Appt Details Provider Name:BABS SANABRIA , 10/24/2024 03:30:00 PM, [address] [place] [address], [place], [address], Progress Notes * Don MYLESDOB:1955 (69 yo M)Acc No.[id number]:08/30/2024 Patient:?Don MYLES :1955???Age:69 Y???Sex:Male Address:[address], [address] , [place] [address] * Refills? Refill Jardiance Tablet, 10 MG, Orally, 90, 1 tablet, Once a day, 90 days, Refills=3 * true * Date:? Generated for Maty griffin/Carissa/eTransmitting on:?09/28/2024 02:19 PM EST
--- OUTSIDE RECORDS SUMMARY | 2024-09-28 14:20 | XMS_ITS ---
Author Organization [facility] Address [address] [facility] [address] [place] [address] Care Team Providers Care Cardroom Plastic Card Grader Name Role Phone ELLYBABS Primary Care Provider [phone] REASON FOR VISIT Metformin refills Medications Medication SIG (Take, Route, Fr equency, Duration) Notes Start Date End Date Status metFORMIN HCl 1000 MG 1 tablet with a me al Orally twice a day for 90 days Active Encounters Encounter Location Date Provider Diagnosis [facility] 294 [facility] 202 [place] [address] 09/27/2024 BABS SANABRIA Plan Of Treatment Medication Medication Name Sig Start Date Stop Date Notes metFORMIN HCl 1000 MG 1 tablet with a me al Orally twice a day for 90 days Next Appt Details Provider Name:BABS SANABRIA , 10/24/2024 03:30:00 PM, [address] [place] [address], [place], [address], Progress Notes * Don MYLESDOB:1955 (69 yo M)Acc No.[id number]:09/27/2024 Patient:?Don MYLES :1955???Age:69 Y???Sex:Male Address:[address], [address] , [place] [address] * Refills? Refill metFORMIN HCl Tablet, 1000 MG, Orally, 180 Tablet, 1 tablet with a meal, twice a day, 90 days, Refills=3 * true * Date:? Generated for Printi ng/Faxing/eTransmitting on:?09/28/2024 02:19 PM EST
== END 2024-09-28 14:10 | disposition home or self-care (01) ==
LOC: HO.US 14:09
PROVIDERS: PCP Hospitalist; Visit Provider Urology
DX: R35.1 Nocturia (principal); N40.1 Benign prostatic hyperplasia with lower urinary tract symptoms; N50.89 Other specified disorders of the male genital organs; N43.3 Hydrocele, unspecified
CPT/HCPCS: 76770; 76870

== ENCOUNTER → 2024-09-28 14:11 | Outpatient (BNV) | payer MEDICARE, SELFPAY | PROVIDERS: PCP Hospitalist; Visit Provider Radiology Diagnostic Radiology | DX: N43.3 Hydrocele, unspecified (principal); N28.1 Cyst of kidney, acquired | CPT/HCPCS: 76770; 76870 ==

== ENCOUNTER 2024-10-10 14:48 | Outpatient (AMB) | payer MEDICARE, SELFPAY ==
--- NOTE | 2024-10-10 14:52 | MHC.AMDMED ---
Intake Intake Visit Reasons: DM Architectural Project Manager Required: No Accompanied by: Self / Same As Patient Allergies No Known Allergies Allergy (Verified 09/12/24 14:50) HPI Comprehensive Diabetes Asmnt Most Recent Diabetes Results: Microalb/Creat Ratio 12.0 ug/mg cr (<30) 04/25/24 Cholesterol 105 mg/dL (<200) 01/27/24 HDL Cholesterol 31 mg/dL (>40) L 01/27/24 Triglycerides 115 mg/dL (<150) 01/27/24 Creatinine 0.96 mg/dL (0.5-1.4) 04/25/24 Blood Urea Nitrogen 15 mg/dL (9-16) 04/25/24 Sodium 140 mmol/L (135-145) 04/25/24 Potassium 3.5 mmol/L (3.3-5.1) 04/25/24 Chloride 104 mmol/L (96-108) 04/25/24 Carbon Dioxide 27 mmol/L (22-29) 04/25/24 Calcium 9.8 mg/dL (8.4-10.2) 04/25/24 AST 14 U/L (5-37) 04/25/24 ALT 19 U/L (0-40) 04/25/24 Total Protein 7.0 g/dL (6.5-8.0) 04/25/24 Albumin 4.2 g/dL (3.5-5.0) 04/25/24 [facility] Medical History Hx of cataract Tubular adenoma Diverticulosis Internal hemorrhoids without complication Glaucoma Diabetes mellitus, type II Hyperlipidemia HTN (hypertension) Surgical History Hx of colonoscopy History of surgical procedure on eye proper using laser Family History Mother HTN (hypertension) High cholesterol Diabetes Pacemaker Social History Household Members: Significant Other Alcohol intake: never Patient Tobacco Use Status: Never used Tobacco Assessment & Plan Assessment & Plan (1) Diabetes mellitus, type II: Code(s): E11.9 - Type 2 diabetes mellitus without complications Plan: Diabetes self-management education and support participation record Assessment/scale: 1= needs instructed? 2= needs review? 3= comprehend keep point? 4= demonstrates understanding/ competent? NC= Not Covered Topics Learning Objective: Initial visit Initial or post srvc Initial or post srvc Initial or post srvc Initial or post srvc Initial or post srvc Post srvc Comments Pre Edu-assessment/plan Outcome or reassess Outcome or reassess Outcome or reassess Outcome or reassess Outcome or reassess Outcome or reassess Diabetes pathophysiology 1 3 4 Healthy eating 1 3 4 Being active 2 3 Taking medication 2 3 Monitoring glucose 2 3 4 Acute complication 1 3 Chronic complicated 1 3 Lifestyle and healthy coping 2 3 Diabetes distress in support 2 3 ?Diabetes pathophysiology: ?Defined diabetes med identify own type of diabetes; list 3 options for treating diabetes Healthy eating: ?Described effect of type, amount and ?timing of food on blood glucose; list 3 methods for planning meal Being active: ?State effect of exercise on blood glucose level Taking medication: ?State effect of diabetes medications on diabetes; name diabetes medications taking, action and side effects Monitoring glucose: ?Identify recommended blood glucose targets and personal target Acute complication: ?List symptoms and treatment of hyper and hypoglycemia, DKA, sick day guidelines and guidelines for severe weather or situations of crisis and diabetes supply manage Chronic complication: ?To find the relationship of blood glucose levels to long-term complications of diabetes in screening and preventative measures Lifestyle and healthy coping: ?Described lifestyle and healthy coping strategies to rule out diabetes self-management Diabetes to stress and support: ?Recognize Diabetes to stress and be able to identified support options Learning objectives: Learning objectives: The patient was provided with verbal and written education on the following topics as outlined below. The patient met all learning objectives and was able to verbalize understanding and provide teach back of education topics discussed . The patient was provided with the opportunity to ask questions and all questions were answered. Patient Assessment Assess patient education level/literacy/barriers, works in [employer]. Reports job is very physically active. Patient prepares his own meals, reports he has increased low carbohydrate vegetable intake since last visit Patient questions/concerns, patient instructed on how to insert Marleen 3+ sensor, Marleen 3 bhupendra set up on patient's smart phone. Exercise Medical clearance Effect of exercise on blood sugar Start slowly and gradually increase pace/duration over time Goal amount of exercise Checking blood glucose/have a source of carbs with you Diabetes Complications: ?Nephropathy :Kidney Disease ?diabetes can damage the kidneys, which is not only can cause them to fail but can make them lose their ability to filter waste from the blood? ?Retinopathy: Eye complications ?Retinopathy? is the commonest long-term complication of diabetes. It is leading cause of blindness Besides, Retinopathy-People with diabetes? are also prone to cataract and Glaucoma. ?Neuropathy: Nerve damage -It involves temporary or permanent damage to nerve tissue. Nerve tissue gets injured mainly due to decreased blood flow and rise in blood glucose levels. This damage can lead to pain , or loss of sensation it can also include sexual dysfunction in both men and women ? Infections poor healing: People with diabetes? have increased susceptibility to various infections, such as? pneumonias, pyelonephritis, carbuncles and diabetic ulcers. This may be due to poor blood supply, reduced cellular immunity or hyperglycemia. ?Heart Disease And Stroke: People with diabetes are four times more prone to develop Heart disease than those who do not have diabetes ?Depression: Feeling down once in awhile is normal, but some people feel sadness that just won't go away. Life for them seems hopeless. Feeling this way most of the day for two weeks or more is a sign of serious depression ?Gum Disease: People get gum disease when plaque destroys the gums and bone around the teeth. People with diabetes can get gum disease from having high blood glucose levels for a long time Lifestyle Work Travel Stress management Problem solving Know your goals A1C Blood sugar targets Blood pressure Cholesterol/LDL Urine microalbumin Smart Goal Assessment:New Smart Goal: Patient will use rule of 15s to treat low blood sugar Pt met goal 100% New Goal:? Patient will put reminder note on bathroom cabinet to take diabetes medication daily Educational Materials: The patient was provided with the following written educational materials: ADCES 7 Healthy Behaviors Reducing Risks handout Patient Response to instructions: Comprehension of Instructions: Good Readiness to make changes: action How confident they feel about making changes: positive Letter of completion of diabetes Education program will be sent to referring provider Portions of this note were created using voice recognition software, please excuse any words or phrases that may have been misinterpreted. Patient Instructions: Include regular daily activity. ADA recommends 30 minutes of exercise 5 days a week. Weight loss talk to PCP or Chiller Tender before starting new plan. Test blood sugar as directed; Fasting and 2hpp largest meal. Watch trends in results. Utilize results and to assess how food, physical activity and medications affect blood sugar results. Bring glucometer or CGM to next visit. Be knowledgeable about diabetes medication, its action, side effects, efficacy, toxicity, prescribed dosage, appropriate timing and frequency of administration, effect of missed and delayed doses and instructions for storage, travel and safety. Problem solving techniques to monitor hypo/hyperglycemia episodes and treatments. Reduce risk reduction behaviors, smoking cessation, regular eye, foot and dental examinations. Pt will increase Lantus 24 units to Lantus 30 units Coding Level of Care Code Est Pt Level 1 (11445) Diagnoses Diabetes mellitus, type II E11.9
--- OUTSIDE RECORDS SUMMARY | 2024-10-10 17:37 | XMS_ITS ---
Author Organization [facility] Address [address] [facility] [address] [place] [address] Care Team Providers Care Data Entry Manager Name Role Phone BABS SANABRIA Primary Care Provider [phone] REASON FOR VISIT Amlodipine refill Medications Medication SIG (Take, Route, Frequency, Duration) Notes Start Date End Date Status amLODIPine Besylate 10 MG 1 tablet Orall y Once a day for 90 days Active Encounters Encounter Location Date Provider Diagnosis [facility] 294 [facility] [address] [place] [address] 10/04/2024 BABS SANABRIA Plan Of Treatment Medication Medication Name Sig Start Date Stop Date Notes amLODIPine Besylate 10 MG 1 tablet Orall y Once a day for 90 days Next Appt Details Provider Name:BABS SANABRIA , 10/24/2024 03:30:00 PM, [address] [place] [address] [address], [place], [address], Progress Notes * Don MYLESDOB:1955 (69 yo M)Acc No.[id number]:10/04/2024 Patient:?Don MYLES :1955???Age:69 Y???Sex:Male Address:[address], [address] , [place] [address] * Refills? Refill amLODIPine Besylate Tablet, 10 MG, Orally, 90, 1 tablet, Once a day, 90 days, Refills=3 * true * Date:? Generated for Markusi elias/Carissa/eTransmitting on:?10/10/2024 05:37 PM EST
--- OUTSIDE RECORDS SUMMARY | 2024-10-10 17:37 | XMS_ITS ---
Author Organization [facility] Address [address] [place] [address] [address] [place] [address] Care Team Providers Care Contracts Director Name Role Phone ELLYBABS Primary Care Provider REASON FOR VISIT Metformin refills Medications Medication SIG (Take, Route, Fr equency, Duration) Notes Start Date End Date Status metFORMIN HCl 1000 MG 1 tablet with a me al Orally twice a day for 90 days Active Encounters Encounter Location Date Provider Diagnosis [facility] [address] [address] 09/27/2024 BABS SANABRIA Plan Of Treatment Medication Medication Name Sig Start Date Stop Date Notes metFORMIN HCl 1000 MG 1 tablet with a me al Orally twice a day for 90 days Next Appt Details Provider Name:BABS SANABRIA , 10/24/2024 03:30:00 PM, [address] [place] [address], [place], [address], Progress Notes * Don MYLESDOB:1955 (69 yo M)Acc No.[id number]:09/27/2024 Patient:?Don MYLES :1955???Age:69 Y???Sex:Male Address:[address], [address] , [place] [address] * Refills? Refill metFORMIN HCl Tablet, 1000 MG, Orally, 180 Tablet, 1 tablet with a meal, twice a day, 90 days, Refills=3 * true * Date:? Generated for Printi ng/Faxing/eTransmitting on:?10/10/2024 05:37 PM EST
--- OUTSIDE RECORDS SUMMARY | 2024-10-10 17:37 | XMS_ITS ---
Author Organization [facility] Address [address] [facility] [address] [place] [address] Care Team Providers Care Cloth Finishing Range Operator Chief Name Role Phone MORALES SANABRIABRICE Primary Care Provider REASON FOR VISIT Jardiance refill Medications Medication SIG (Take, Route, Fr equency, Duration) Notes Start Date End Date Status Jardiance 10 MG 1 tablet Orally Once a day for 90 days 08/19/2024 Active Encounters Encounter Location Date Provider Diagnosis [facility] [address] [facility] [address] [place] [address] 08/30/2024 BABS SANABRIA Plan Of Treatment Medication Medication Name Sig Start Date Stop Date Notes Jardiance 10 MG 1 tablet Orally Once a day for 90 days 05/2025 Next Appt Details Provider Name:BABS SANABRIA , 10/24/2024 03:30:00 PM, [address] [place] [address], [place], [address], Progress Notes * Don MYLESDOB:1955 (69 yo M)Acc No.[id number]:08/30/2024 Patient:?Don MYLES :1955???Age:69 Y???Sex:Male Address:[address], [address] , [place] [address] * Refills? Refill Jardiance Tablet, 10 MG, Orally, 90, 1 tablet, Once a day, 90 days, Refills=3 * true * Date:? Generated for Maty griffin/Carissa/eTransmitting on:?10/10/2024 05:37 PM EST
--- OUTSIDE RECORDS SUMMARY | 2024-10-10 17:37 | XMS_ITS | Patient Health Record ---
Author Organization [facility] Address [address] [place] [address] Care Team Providers Care Computer Consultant Name Role Phone ELLY BRICE Primary Care Provider [phone] Fanny Pelaez Unavailable [phone] Allergies Allergen (clinical drug ingredient) Drug/Non Drug Allergy documented on EMR Reaction Allergy Type Onset Date Status dulaglutide Trulicity pancreatitis Drug Allergy Ac tive Reason For Referral Reason Evaluation and manag ement - Insulin teaching Diagnosis 1 Type 2 diabetes mani itus with unspecified complications (E11.8) Referral Organization [facility] Referring Provider First Name Fanny [...] EVERY 14 DAYS for 30 days Active amLODIPine Besylate 10 MG 1 tablet Orall y Once a day for 90 days Active metFORMIN HCl 1000 MG 1 [...] 90 days Active FreeStyle Marleen 14 Day [place] - as directed four times a day for 30 days 07/30/2022 Active Latanoprost 0.005 % 1 drop into [...] 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 2 diabetes mellitus (278990482) Type 2 diabetes mellitus with unspecified complications (E11.8) Active confirmed Problem Mixed hyperlipidemia (669217272) Mixed hyperlipidemia (E78.2) Active confirmed Problem Sleep apnea (53184878) Sleep apnea, unspecified (G47.30) Active confirmed Problem Glaucoma (33586080) Unspecified glaucoma (H40.9) Active confirmed Problem Essential hypertension (27915352) Essential (primary) hypertension (I10) Active confirmed Problem Obstructive uropathy (3823378) Other obstructive and reflux uropathy (N13.8) Active confirmed Vital Signs Heart Rate 85 /min 04/29/2024 Temperature 97.2 degrees Fahrenheit 04/29/2024 Blood pressure diastolic 70 mm Hg 04/29/2024 Oximetry 97 % 04/29/2024 Height 67 in 04/29/2024 Blood pressure systolic 120 mm Hg 04/29/2024 Weight 198.4 lbs 04/29/2024 BMI 31.07 kg/m2 04/29/2024 Encounters Encounter Location Date Provider Diagnosis [facility] [address] [place] [address] 01/15/2024 BRICE GUL Type 2 diabetes mellitus with unspecified complications E11.8 ; Acute pancreatitis without necrosis or infection, unspecified K85.90 ; Essential (primary) hypertension I10 ; Mixed hyperlipidemia E78.2 and Sleep apnea, unspecified G47.30 [facility] [address] [facility] [address] [place] [address] 02/25/2024 Fanny Pelaez Type 2 diabetes mellitus with unspecified complications E11.[address] [place] [address] 04/29/2024 BRICE GUL Type 2 diabetes mellitus with unspecified complications E11.8 ; Essential (primary) hypertension I10 and Mixed hyperlipidemia E78.2 [facility] [address] [place] [address] 10/17/2023 BRICE GUL [facility] [address] [place] [address] 10/17/2023 BRICE GUL [facility] [address] [facility] [address] [place] [address] 10/26/2023 BRICE GUL Postnasal drip R09.8 2 [facility] [address] [facility] [address] [place] [address] 01/12/2024 BRICE GUL Type 2 diabetes mellitus with unspecified complications E11.[address] [place] [address] 01/13/2024 BRICE GUL [facility] [address] [place] [facility] [address] 01/15/2024 BRICE GUL [facility] [address] [place] [address] 01/18/2024 [facility] [address] [facility] [place] [address] 01/28/2024 [facility] [address] [facility] [place] [address] 02/01/2024 BRICE GUL [facility] [address] [place] [facility] [address] 02/07/2024 [facility] [address] [place] [address] 02/10/2024 [facility] [address] [place] [facility] [place] [address] 02/18/2024 [facility] [address] [place] [facility] [address] 02/22/2024 [facility] [address] [place] [facility] [address] 02/22/2024 [facility] [address] [place] [facility] [address] 02/23/2024 [facility] [address] [place] [facility] [address] 03/01/2024 [facility] [address] [place] [facility] [address] 03/02/2024 [facility] [address] [place] [facility] [place] [address] 03/02/2024 [facility] [address] [place] [address] 03/10/2024 [facility] [address] [place] [address] 03/16/2024 [facility] [address] [place] [address] 05/20/2024 [facility] [address] [place] [address] 05/24/2024 [facility] [address] [place] [address] 06/10/2024 [facility] Type 2 diabetes mellitus with unspecified complications E11.8 [facility] [address] [place] [address] 06/10/2024 [facility] [address] [place] [address] 06/10/2024 [facility] [address] [place] [address] 07/11/2024 [facility] [address] [place] [address] 08/19/2024 [facility] [address] [place] [address] 08/19/2024 [facility] Postnasal drip R09.8 2 [facility] [address] [place] [address] 08/26/2024 [facility] [address] [place] [address] 08/30/2024 [facility] [address] [place] [address] 09/27/2024 [facility] [address] [place] [address] 10/04/2024 [facility] Assessments Encounter Date Diagnosis (ICD Code) Assessment Notes Treatment Notes Treatment Clinical Notes Section Notes 10/26/2023 Postnasal drip (ICD-10 - R09.82) 01/12/2024 Type 2 diabetes mellitus with unspecified complications (ICD-10 - E11.8) 01/15/2024 Type 2 diabetes mellitus with unspecified complications (ICD-10 - E11.8) Mr. Myles is 68 years old pleasant gentleman with DM type II on Trulicity, hypertension, hyperlipidemia, sleep apnea is here today for follow-up after a visit to [facility]. He had CT abdomen and pelvis [...] today for follow-up after a visit to [facility]. He had CT abdomen and pelvis [...] on CPAP machine and no daytime sleepiness. 02/25/2024 Type 2 diabetes mellitus with unspecified [...] seeing a nurse practitioner Jackie Santacruz at [facility] and has also seen a chemical educator and his home blood sugar numbers are improving. He is currently on long-acting insulin 34 units along with other medications as mentioned above. He has seen an getter welder for the past year. Foot care discussed. check A1c. Hypertension. Blood pressure well controlled on current regimen. Hyperlipidemia. Continue Simvastatin 20 MG once a day. Screening blood work before next appointment. General health concerns discussed with patient. Scribe services used to formulate this note under HIPAA compliance and under [place] law mandated for scribe services. Patient aware of service. Verbal consent and written consent taken from the patient. Patient understands and verbalizes understanding of the scribes services and all questions answered regarding scribes services. Patient agrees to use of scribes services. 06/10/2024 Type 2 diabetes mellitus with unspecified complications (ICD-10 - E11.8) 08/19/2024 Postnasal drip (ICD-10 - R09.82) 01/15/2024 Essential (primary) hypertension (ICD-10 - I10) Mr. Myles is 68 years old pleasant gentleman with DM type II on Trulicity, hypertension, hyperlipidemia, sleep apnea is here today for follow-up after a visit to [facility]. He had CT abdomen and pelvis [...] seeing a nurse practitioner Jackie Santacruz at [facility] and has also seen a chemical educator and his home blood sugar numbers are improving. He is currently on long-acting insulin 34 units along with other medications as mentioned above. He has seen an getter welder for the past year. Foot care discussed. check A1c. Hypertension. Blood pressure well controlled on current regimen. Hyperlipidemia. Continue Simvastatin 20 MG once a day. Screening blood work before next appointment. General health concerns discussed with patient. Scribe services used to formulate this note under HIPAA compliance and under [place] law mandated for scribe services. Patient aware of service. Verbal consent and written consent taken from the patient. Patient understands and verbalizes understanding of the scribes services and all questions answered regarding scribes services. Patient agrees to use of scribes services. 04/29/2024 Mixed hyperlipidemia (ICD-10 - E78.2) Mr. Myles is a 69 year old gentleman with DM type II, hypertension, hyperlipidemia here for follow up. Plan is as follows: Type II diabetes mellitus. Last A1c 8.0. He has started seeing a nurse practitioner Jackie Santacruz at [facility] and has also seen a chemical educator and his home blood sugar numbers are improving. He is currently on long-acting insulin 34 units along with other medications as mentioned above. He has seen an getter welder for the past year. Foot care discussed. check A1c. Hypertension. Blood pressure well controlled on current regimen. Hyperlipidemia. Continue Simvastatin 20 MG once a day. Screening blood work before next appointment. General health concerns discussed with patient. Scribe services used to formulate this note under HIPAA compliance and under [place] law mandated for scribe services. Patient aware [...] today for follow-up after a visit to [facility]. He had CT abdomen and pelvis [...] today for follow-up after a visit to [facility]. He had CT abdomen and pelvis [...] Test Name Order Date COMPREHENSIVE METABOLIC PANEL 01/07/2023 COMPREHENSIVE METABOLIC PANEL 06/15/2023 HEMOGLOBIN A1C 06/15/2023 HEMOGLOBIN A1C WITH EST GLUCOSE 01/08/20 23 HEMOGLOBIN A1C WITH EST GLUCOSE 06/25/20 22 LIPID PANEL 01/07/2023 LIPID PANEL 06/15/2023 MICROALBUMIN, URINE 06/15/2023 MICROALBUMIN, URINE 01/07/2023 PSA, SCREEN 01/07/2023 PSA, SCREEN 06/25/2022 CBC 07/24/2022 COMPREHENSIVE METABOLIC PANEL 07/24/2022 LIPID PROFILE 07/24/2022 PROSTATIC SPECIFIC ANTIGEN 07/24/2022 MICROSCOPIC, URINE 07/24/2022 Albumin/Creatinine Ratio,Urine-[id number] 07 / Comp. Metabolic Panel [id number] 2023 Hemoglobin A1c 01/12/2024 Future Test Test Name Order Date Hemoglobin [id number] 04/29/2024 Albumin/Creatinine Ratio,Urine-[id number] Lipid Panel-[id number] 04/29/2024 Comp. Metabolic Panel [id number] 2023 Next Appt Details Provider Name:BABS SANABRIA , 10/24/2024 03:30:00 PM, [address] [place] [address], [address], Insurance Providers Payer Name Payer Address Payer Phone Subscriber Number Group Number Insured Name Patient Relationship to Insured Coverage Start Date Coverage End Date [employer] [address] [address] [place] [address] [id number] Don Myles Self - patient is the insured [facility] [address] [address] [place] [address] [phone] [id number] Don Myles Self - patient is the insured 2 Medical (General) History Medical History History ICD Code Hypertension Hyperlipidemia DM type II he sees Jackie mart at [facility] Glaucoma cataracts Surgical History Surgery Date(Month/Year) Neck surgery by Dr Tessie chirinos laser eye surgery Hospitalization History Reason Date(Month/Year) surgery
== END 2024-10-10 15:39 | disposition home or self-care (01) ==
PROVIDERS: PCP Hospitalist; Visit Provider Registered Nurse Diabetes Educator
DX: E11.9 Type 2 diabetes mellitus without complications (principal)

== ENCOUNTER → 2024-10-10 14:48 | Outpatient (BNVA) | payer MEDICARE, SELFPAY | PROVIDERS: PCP Hospitalist; Visit Provider Registered Nurse Diabetes Educator | DX: E11.9 Type 2 diabetes mellitus without complications (principal); Z79.4 Long term (current) use of insulin | CPT/HCPCS: 99211 ==

== ENCOUNTER 2024-10-22 07:32 | Outpatient (REF) | payer MEDICARE, SELFPAY ==
[2024-10-22 08:38] LABS: Estimated Average Glucose 174 mg/dL; Hemoglobin A1c % 7.7 % (<6.0)
[2024-10-22 09:09] LABS: Creatinine Urine 51.99 mg/dL; Microalbum/Creatinine Ratio Ur 9.6 ug/mg cr (<30)
[2024-10-22 09:18] LABS: Alanine Aminotransferase 33 U/L (0-40); Albumin Level 4.1 g/dL (3.5-5.0); Alkaline Phosphatase 86 U/L (39-117); Anion Gap 14 (12-20); Aspartate Amino Transferase 21 U/L (5-37); Bilirubin Total 0.4 mg/dL (0.0-1.0); Blood Urea Nitrogen 17 mg/dL (9-16); Calcium 8.9 mg/dL (8.4-10.2); Carbon Dioxide 26 mmol/L (22-29); Chloride 102 mmol/L (96-108); Cholesterol 107 mg/dL (<200); Estimated Glomerular Filt Rate > 60; Glucose Random 120 mg/dL (60-115); HDL Cholesterol 32 mg/dL (>40); LDL Cholesterol Calculated 41 mg/dL (<100); Potassium 3.6 mmol/L (3.3-5.1); Sodium 138 mmol/L (135-145); Total Protein 7.3 g/dL (6.5-8.0); Triglycerides 174 mg/dL (<150)
== END 2024-10-22 07:33 | disposition home or self-care (01) ==
LOC: HO.LAB 07:32
PROVIDERS: PCP Hospitalist; Visit Provider Hospitalist
DX: E11.8 Type 2 diabetes mellitus with unspecified complications (principal)
CPT/HCPCS: 36415; 80053; 80061; 82043; 82570; 83036

== ENCOUNTER 2024-11-15 14:11 | Outpatient (AMB) | payer MEDICARE, SELFPAY ==
--- NOTE | 2024-11-15 10:16 | A.OFFVIS_ITS ---
Vital Signs 11/15/24 14:18 Height 5 ft 8 in Weight 200 lb 9.93 oz BMI 30.5 BP 120/80 Blood Pressure Location Rt brachial Position Sitting Pulse 91 Pulse Source Pulse Oximeter Pulse Oximetry (%) 95 Oxygen Delivery Method Room Air Intake Visit Reasons: Type II diabetes Intake Note: Patient presents today for a follow-up for Type 2 Diabetes Mellitus: Last Diabetic eye exam was on: 02/2024, had laser surgery for cataracts Last Podiatry exam was on: Does not see a Youth Care Professional Most recent HbA1c: 7.7%, 10/22/2024 Random Glucose- 319 mg/dL, Today, Patient stated he just ate. 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: No Accompanied by: Self / Same As Patient Allergies No Known Allergies Allergy (Verified 11/15/24 14:19) Medication List - Last Reconciled 11/15/24 by Jackie Santacruz NP amlodipine 10 mg PO DAILY chlorthalidone 25 mg PO DAILY empagliflozin (Jardiance) 25 mg PO DAILY 90 days fluticasone propionate 50 mcg/actuation 1 spray intranasal DAILY FreeStyle Marleen 3 Sensor (blood-glucose sensor) every 15 days for continous glucose readings NS glimepiride 4mg am 2mg supper orally daily; 30 days Lantus Solostar U-100 Insulin (insulin glargine) 30 units (0.3 mL) subcut QPM 90 days NS lisinopril 40 mg PO DAILY metformin 1,000 mg PO BID pen needle, diabetic (BD Ultra-Fine Sharon Pen Needle) As directed once daily simvastatin 20 mg PO BEDTIME tamsulosin (Flomax) 0.4 mg PO BEDTIME timolol maleate 0.5% drps ophthalmic (eye) DAILY HPI Comments Details: 69 YO male who is seen in f/u for T2DM. He was seen for initial consult in March. At that time he was started on low dose basal insulin. He was last seen by myself 08/16/2024 and by Evette VILLASENOR who increased his Lantus to 30 units and completed a program of diabetes education. Most recent A1c 11/15/2024 7.7%, 8.9% 04/06/24. Initially diagnosed with T2DM diagnosed at 35. Was diagnosed after polyuria, dizziness. Was initially started on treatment with metformin and actos. Had recent episode of pancreatitis in January 2024 Was on Trulicity which was very effective. Has been off since hospitalization. Current regimen: Lantus 30 units jardiance 10mg glimipiride 4mg with breakfast metformin 1000mg twice daily Freestyle marleen sensor 2 average glucose: Glucose Management indicator [179 ] % Time CGM active 7.6 % TIme in ranges: 7 % very high (above 250) 35 % high (181-250) 58 % in range (70-180] 0 % low (69-55) 0 % very low (below 54) Interpretation of CGMS sensor running 25 points above target average Treats lows with hasn't had any. Family history of T2DM in mother uncle type 1 (not certain) cousin on insulin. Has eyes checked yearly, last eye exam 10/31, denies retinopathy Has elevated pressures and cataract extraction glaucoma surgery Denies neuropathy, was seeing podiatry in the past negative nephropathy, on RAMILA. microalbumin: 12 08/0110/22/2024 eGFR>60 HLD on statin. Last LDL 41 as measured on 10/22/24 Denies CAD. Denies symptoms of chest pain, dyspnea or claudication. Diet: trys to balance, loves veg/chicken/fish Weight: stable, up to pounds over past 2 months Plans to start going to the gym again Recently completed diabetes education [facility] Medical History Hx of cataract Tubular adenoma Diverticulosis Internal hemorrhoids without complication Glaucoma Diabetes mellitus, type II Hyperlipidemia HTN (hypertension) Surgical History Hx of colonoscopy History of surgical procedure on eye proper using laser Family History Mother HTN (hypertension) High cholesterol Diabetes Pacemaker Social History Household Members: Significant Other Alcohol intake: never Patient Tobacco Use Status: Never used Tobacco Physical Exam Vital Signs: Last Vital Signs Pulse 91 11/15/24 14:18 BP 120/80 11/15/24 14:18 Pulse Ox 95 11/15/24 14:18 Oxygen Delivery Method Room Air 11/15/24 14:18 BMI result Body Mass Index 30.5 Const Other: Absence of Cushingoid features. Absence of acromegalic features. Neck exam reveals nl size thyroid about 15 gms. No thyroid nodules palpable. No carotid bruits present. Lungs CTA. Heart S1 S2, Reg R/R. No M/R G. Skin exam reveals absence of vitiligo or acanthosis nigricans. No edema Visual exam of foot performed. No ulcerations or open lesions. No inter digit maceration or fissuring. mild onychomycosis, no callouses. Sensation intact to monofilament exam. Vibratory sensation is normal with 128 Hz tuning fork. Assessment & Plan Assessment & Plan (1) Diabetes mellitus, type II: Code(s): E11.9 - Type 2 diabetes mellitus without complications Category: Medical Plan: 69-year-old type 2 diabetic with no known macro/macrovascular complications with a recent A1c of. Insulin has been added late last year due to coming off GLP 1 agonist as he had a bout of pancreatitis. A1C today: 7.7%. He was advised that adding a 2-10 minute walk in the evening we will help to lower his sugars overnight New dosing: continue all current medications with exception of increase jardiance to 25mg. He will use up his current supply of 10mg by taking 2 in the am. The patient had an opportunity to ask questions regarding treatment plan. The patient expressed understanding and agreement with the above treatment plan. The patient is aware they should contact our office by phone for worsening glucose readings or for any low blood sugars which may warrant a change in diabetes medication. Compliance is encouraged with medications and any followup testing/consults which may have been ordered. Medications: New empagliflozin (Jardiance) 25 mg PO DAILY 90 days 90 tabs 1RF Changed From Lantus Solostar U-100 Insulin (insulin glargine) 24 units (0.24 mL) subcut QPM 90 days 24 mL 3RF NS E11.9 - Type 2 diabetes mellitus without complications To Lantus Solostar U-100 Insulin (insulin glargine) 30 units (0.3 mL) subcut QPM 90 days 27 mL 3RF NS E11.9 - Type 2 diabetes mellitus without complications Refilled FreeStyle Marleen 3 Sensor (blood-glucose sensor) every 15 days for continous glucose readings 6 ea 3RF NS E11.9 - Type 2 diabetes mellitus without complications Lantus Solostar U-100 Insulin (insulin glargine) 30 units (0.3 mL) subcut QPM 90 days 27 mL 3RF NS E11.9 - Type 2 diabetes mellitus without complications Discontinued empagliflozin (Jardiance) Discontinued Reason: Doctor's Order 10 mg PO DAILY 30 days 30 tabs 5RF E11.9 - Type 2 diabetes mellitus without complications Patient Instructions: The patient was counseled to achieve a target A1C of 7% (154 avg). Fasting blood sugars should be 90-130 in the morning and less than 180 two hours after meals. Reviewed the relationship between poor diabetic control and the development of complications. Take 15 carb carbohydrate grams to treat a low sugar (3-4 glucose tablets, half a glass of juice or 15 carbohydrate grams of soft candy such as gummie snacks). Recheck your sugar in 15 minutes and re-treat again with 15 carbohydrate grams if low or still with symptoms. Do not drive a car or operate machinery if you do not know what your blood sugar is, if it is low or in excess of 300. If you develop significant illness with vomiting or fever keep hydrated and temporarily stop metformin. Notify Endocrine Clinic if sugars are over 250. Stop metformin prior to surgery or tests in which dye is injected in the body. Coding Level of Care Code Est Pt Level 4 (77542) Complex EM visit Add On G2211 Diagnoses Diabetes mellitus, type II E11.9 Time Spent (min) 30 Comment Time spent reviewing labs/provider notes, face to face, chart doc
[2024-11-15 14:18] VITALS: BP 120/80; PULSE 91; O2SAT 95; BMI 30.5
[2024-11-15 14:31] LABS: Glucose, Whole Blood 319 mg/dL (60-115)
--- OUTSIDE RECORDS SUMMARY | 2024-11-15 17:18 | XMS_ITS ---
Author Organization [facility] Address [address] [place] [address] Care Team Providers Care Water Service Dispatcher Name Role Phone BABS SANABRIA Primary Care Provider [phone] REASON FOR VISIT Amlodipine refill Medications Medication SIG (Take, Route, Frequency, Duration) Notes Start Date End Date Status amLODIPine Besylate 10 MG 1 tablet Orall y Once a day for 90 days Active Encounters Encounter Location Date Provider Diagnosis [facility] [address] [facility] [address] [place] [address] 10/04/2024 BABS SANABRIA Plan Of Treatment Medication Medication Name Sig Start Date Stop Date Notes amLODIPine Besylate 10 MG 1 tablet Orall y Once a day for 90 days Next Appt Details Provider Name:BABS SANABRIA , 05/01/2025 02:30:00 PM, [address] [place] [address], [place], [address], Progress Notes * Don MYLESDOB:1955 (69 yo M)Acc No.[id number]:10/04/2024 Patient:?Don MYLES :1955???Age:69 Y???Sex:Male Address:[address], [address] , [place] [address] * Refills? Refill amLODIPine Besylate Tablet, 10 MG, Orally, 90, 1 tablet, Once a day, 90 days, Refills=3 * true * Date:? Generated for Markusi elias/Carissa/eTransmitting on:?11/15/2024 05:18 PM EDT
--- OUTSIDE RECORDS SUMMARY | 2024-11-15 17:19 | XMS_ITS ---
Author Organization [facility] Address [address] [facility] [address] [place] [address] Care Team Providers Care Translator Interpreter Name Role Phone BABS SANABRIA Primary Care Provider REASON FOR VISIT Lab orders be printed Encounters Encounter Location Date Provider Diagnosis [facility] [address] [facility] [address] [place] [address] 10/21/2024 BABS SANBARIA Plan Of Treatment Next Appt Details Provider Name:BABS SANABRIA , 05/01/2025 02:30:00 PM, [address] [facility] [address], [place], [address], Progress Notes * PETERSONDonDOB:1955 (69 yo M)Acc No.[id number]:10/21/2024 Patient:?Don MYLES :1955???Age:69 Y???Sex:Male Address:[address] , [place] [address] * true * Date:? Generated for Printi ng/Fapasqualeg/eTransmitting on:?11/15/2024 05:18 PM EDT
--- OUTSIDE RECORDS SUMMARY | 2024-11-15 17:19 | XMS_ITS ---
Author Organization [facility] Address [address] [place] [address] Care Team Providers Care Security Delivery Specialist Name Role Phone BABS SANABRIA Primary Care Provider Allergies Allergen (clinical drug ingredient) Drug/Non Drug Allergy documented on EMR Reaction Allergy Type Onset Date Status dulaglutide Trulicity pancreatitis Drug Allergy Ac tive REASON FOR VISIT Medicare Wellness Medications Medication SIG (Take, Route, Frequency, Duration) Notes Start Date End Date Status metFORMIN HCl 1000 MG 1 tablet with a me al Orally twice a day for 90 days Active amLODIPine Besylate 10 MG 1 tablet Orall y Once a day for 90 days Active Tresiba FlexTouch 100 UNIT/ML as directed Subcutaneous Not-Taking Latanoprost 0.005 % 1 drop into affected eye in the evening Ophthalmic Once a day Not-Taking Lantus 100 UNIT/ML as directed take 15 units Subcutaneous at bedtime for 30 days 02/25/2024 Not-Taking Jardiance 10 MG 1 tablet Orally Once a day for 90 days 08/19/2024 Active Lantus 100 UNIT/ML 30 units Subcutaneou s Daily for 30 days 08/19/2024 Active Chlorthalidone 25 MG 1/2 tablet Orally o nce a day for 90 days Active Simvastatin 20 MG 1 tablet in the even ing Orally Once a day for 90 days Active FreeStyle Marleen 2 Sensor - CHANGE EVERY 14 DAYS for 30 days Active Fluticasone Propionate 50 MCG/ACT 1 spray in each nostril Nasally Once a day for 90 days 09/01/2023 Active Glimepiride 2 MG TAKE 1 TABLET DAILY WITH BREAKFAST OR FIRST MAIN MEAL OF THE DAY for 90 days Active Morphine Sulfate 15 MG 1 tablet as neede d Orally every 4 hrs for 5 days 01/15/2024 Active Ondansetron 4 MG 1 tablet on the tong ue and allow to dissolve Orally Once a day for 10 days Active Lisinopril 40 MG 1 tablet Orally Once a day for 90 days Active FreeStyle Marleen 14 Day [place] - as directed four times a day for 30 days 07/30/2022 Active Blood Pressure - as directed once a d ay for 30 days 03/01/2021 Active Social History Tobacco Use: Social History Observation Description Date Details (start date - stop date) Never Smoker NA - NA Tobacco Use/Smoking Question Answer Notes Are you a nonsmoker Alcohol Screen (Audit-C) Question Answer Notes Did you have a drink containing alcohol in the p ast year? No Points 0 Interpretation Negative Vital Signs Temperature 96.9 degrees Fahrenheit 10/25/19 25 Oximetry 96 % 10/24/2024 Heart Rate 64 /min 10/24/2024 Blood pressure systolic 118 mm Hg 10/25/19 25 Blood pressure diastolic 78 mm Hg 025 Weight 202.8 lbs 10/24/2024 BMI 31.76 kg/m2 10/24/2024 Height 67 in 10/24/2024 Encounters Encounter Location Date Provider Diagnosis [facility] [address] [address] 10/24/2024 BABS SANABRIA Type 2 diabetes mellitus with unspecified complications E11.8 ; Encounter for general adult medical examination without abnormal findings Z00.00 ; Essential (primary) hypertension I10 ; Mixed hyperlipidemia E78.2 ; Sleep apnea, unspecified G47.30 and Encounter for screening for malignant neoplasm of prostate Z12.5 Assessments Encounter Date Diagnosis (ICD Code) Assessment Notes Treatment Notes Treatment Clinical Notes Section Notes 10/24/2024 Type 2 diabetes mellitus with unspecified complications (ICD-10 - E11.8) Don is 69 years old pleasant gentleman with insulin-dependent DM type II, hypertension, leg edema, obstructive sleep apnea is here today for annual physical. Plan is as follows Insulin-dependent DM2. He follows up with nurse practitioner Jackie Bennett and he is on Lantus 40 units along with glimepiride 2 mg daily and Metformin 1000 mg twice a day. His last hemoglobin A1c was 7.4. He recently had blood work done which is not available at this point. He is on simvastatin 20 mg and lisinopril 40 mg daily. He is seen elastic attacher overlock in the past 1 year. Foot care were discussed with the patient. Hypertension/hyper lipidemia. Blood pressure well controlled on lisinopril 40 mg and amlodipine 10 mg daily. He is on simvastatin 20 mg and is tolerating the medications fine. EKG is normal sinus rhythm at 71 bpm with no acute ST or T wave changes, no bundle branch blocks and normal intervals Obstructive sleep apnea. Continue CPAP machine and it is helping. Obesity. Complications of obesity discussed and advised to lose on average 6 pounds a month. He is up to date on health specific screening. He is a full code and Gracie Shar is his healthcare proxy. 10/24/2024 Encounter for general adult medical examination without abnormal findings (ICD-10 - Z00.00) Don is 69 years old pleasant gentleman with insulin-dependent DM type II, hypertension, leg edema, obstructive sleep apnea is here today for annual physical. Plan is as follows Insulin-dependent DM2. He follows up with nurse practitioner Jackie Bennett and he is on Lantus 40 units along with glimepiride 2 mg daily and Metformin 1000 mg twice a day. His last hemoglobin A1c was 7.4. He recently had blood work done which is not available at this point. He is on simvastatin 20 mg and lisinopril 40 mg daily. He is seen elastic attacher overlock in the past 1 year. Foot care were discussed with the patient. Hypertension/hyper lipidemia. Blood pressure well controlled on lisinopril 40 mg and amlodipine 10 mg daily. He is on simvastatin 20 mg and is tolerating the medications fine. EKG is normal sinus rhythm at 71 bpm with no acute ST or T wave changes, no bundle branch blocks and normal intervals Obstructive sleep apnea. Continue CPAP machine and it is helping. Obesity. Complications of obesity discussed and advised to lose on average 6 pounds a month. He is up to date on health specific screening. He is a full code and Gracie Myles is his healthcare proxy. 10/24/2024 Essential (primary) hypertension (ICD-10 - I10) Don is 69 years old pleasant gentleman with insulin-dependent DM type II, hypertension, leg edema, obstructive sleep apnea is here today for annual physical. Plan is as follows Insulin-dependent DM2. He follows up with nurse practitioner Jackie Bennett and he is on Lantus 40 units along with glimepiride 2 mg daily and Metformin 1000 mg twice a day. His last hemoglobin A1c was 7.4. He recently had blood work done which is not available at this point. He is on simvastatin 20 mg and lisinopril 40 mg daily. He is seen elastic attacher overlock in the past 1 year. Foot care were discussed with the patient. Hypertension/hyper lipidemia. Blood pressure well controlled on lisinopril 40 mg and amlodipine 10 mg daily. He is on simvastatin 20 mg and is tolerating the medications fine. EKG is normal sinus rhythm at 71 bpm with no acute ST or T wave changes, no bundle branch blocks and normal intervals Obstructive sleep apnea. Continue CPAP machine and it is helping. Obesity. Complications of obesity discussed and advised to lose on average 6 pounds a month. He is up to date on health specific screening. He is a full code and Gracie Shar is his healthcare proxy. 10/24/2024 Mixed hyperlipidemia (ICD-10 - E78.2) Don is 69 years old pleasant gentleman with insulin-dependent DM type II, hypertension, leg edema, obstructive sleep apnea is here today for annual physical. Plan is as follows Insulin-dependent DM2. He follows up with nurse practitioner Jackie Bennett and he is on Lantus 40 units along with glimepiride 2 mg daily and Metformin 1000 mg twice a day. His last hemoglobin A1c was 7.4. He recently had blood work done which is not available at this point. He is on simvastatin 20 mg and lisinopril 40 mg daily. He is seen elastic attacher overlock in the past 1 year. Foot care were discussed with the patient. Hypertension/hyper lipidemia. Blood pressure well controlled on lisinopril 40 mg and amlodipine 10 mg daily. He is on simvastatin 20 mg and is tolerating the medications fine. EKG is normal sinus rhythm at 71 bpm with no acute ST or T wave changes, no bundle branch blocks and normal intervals Obstructive sleep apnea. Continue CPAP machine and it is helping. Obesity. Complications of obesity discussed and advised to lose on average 6 pounds a month. He is up to date on health specific screening. He is a full code and Gracie Shar is his healthcare proxy. 10/24/2024 Sleep apnea, unspecified (ICD-10 - G47.30) Don is 69 years old pleasant gentleman with insulin-dependent DM type II, hypertension, leg edema, obstructive sleep apnea is here today for annual physical. Plan is as follows Insulin-dependent DM2. He follows up with nurse practitioner Jackie Bennett and he is on Lantus 40 units along with glimepiride 2 mg daily and Metformin 1000 mg twice a day. His last hemoglobin A1c was 7.4. He recently had blood work done which is not available at this point. He is on simvastatin 20 mg and lisinopril 40 mg daily. He is seen elastic attacher overlock in the past 1 year. Foot care were discussed with the patient. Hypertension/hyper lipidemia. Blood pressure well controlled on lisinopril 40 mg and amlodipine 10 mg daily. He is on simvastatin 20 mg and is tolerating the medications fine. EKG is normal sinus rhythm at 71 bpm with no acute ST or T wave changes, no bundle branch blocks and normal intervals Obstructive sleep apnea. Continue CPAP machine and it is helping. Obesity. Complications of obesity discussed and advised to lose on average 6 pounds a month. He is up to date on health specific screening. He is a full code and Gracie Myles is his healthcare proxy. 10/24/2024 Encounter for screening for malignant neoplasm of prostate (ICD-10 - Z12.5) Don is 69 years old pleasant gentleman with insulin-dependent DM type II, hypertension, leg edema, obstructive sleep apnea is here today for annual physical. Plan is as follows Insulin-dependent DM2. He follows up with nurse practitioner Jackie Bennett and he is on Lantus 40 units along with glimepiride 2 mg daily and Metformin 1000 mg twice a day. His last hemoglobin A1c was 7.4. He recently had blood work done which is not available at this point. He is on simvastatin 20 mg and lisinopril 40 mg daily. He is seen elastic attacher overlock in the past 1 year. Foot care were discussed with the patient. Hypertension/hyper lipidemia. Blood pressure well controlled on lisinopril 40 mg and amlodipine 10 mg daily. He is on simvastatin 20 mg and is tolerating the medications fine. EKG is normal sinus rhythm at 71 bpm with no acute ST or T wave changes, no bundle branch blocks and normal intervals Obstructive sleep apnea. Continue CPAP machine and it is helping. Obesity. Complications of obesity discussed and advised to lose on average 6 pounds a month. He is up to date on health specific screening. He is a full code and Gracie Myles is his healthcare proxy. Plan Of Treatment Future Test Test Name Order Date Hemoglobin [id number] 10/24/2024 Albumin/Creatinine Ratio,Urine-[id number] Lipid Panel-[id number] 10/24/2024 Comp. Metabolic Panel ([id number] 2024 PSA (Serial Monitor)-[id number] 10/24/2024 Next Appt Details Follow Up: 6 Months, Reason: Provider Name:BABS SANABRIA , 05/01/2025 02:30:00 PM, [address] [place] [address], [id number], Progress Notes * Don MYLESDOB:1955 (69 yo M)Acc No.[id number]:10/24/2024 Progress Note Patient:?Don MYLES Provider:?BABS SANABRIA MD :1955???Age:69 Y???Sex:Male Zeke e:10/24/2024 Address:[address] [place] [address], [id number] Subjective: * Chief Complaints: * ???Medicare Wellness * HPI: ???Internal Medicine:?Mr. Myles is a 69 year old gentleman with DM type II, hypertension, hyperlipidemia here for follow up. He is physically active and goes to the gym 2 times a week. He gained 4 lbs since last visit. He does not appear anxious or depressed. He sleeps well on CPAP, appetite is good. No GI or symptoms. He denies any other active issues or concerns. ???Patient Care Team:?-?No Providers on Record.?Medicare Annual Visit:?Type of Visit?-?Subsequent Annual Wellness Visit ?Language or Communication barrier addressed?-?Yes ?Health Risk Assessment?DEMOGRAPHICS?- ?- How old are [age]??[age] ?- How would you best describe your ethnicity??Black or ?- How would you describe your marital status??__ . live with son and daughter ?- How would you describe your employment status??Employed for wages ?- How many children do you have??two ?RISK ASSESSMENT?- ?- Do you currently use tobacco products??No ?- Have you ever used tobacco products??No ?- What type of tobacco do you use or have you used??__ ?- (If cigarette smoker) How long have you smoked??__ ?- (If cigarette smoker) How many cigarettes do you smoke per day??__ ?- How many alcoholic beverages (i.e. 1oz hard liquor, one glass of wine, one bottle of beer) do you drink daily, on average??None ?- Have you ever felt the need to cut down on drinking??No ?- Have people annoyed you with criticism of your drinking??No ?- Do you or have you felt guilty for drinking??No ?- Have you ever felt the need to drink first thing in the morning to steady your nerves or to get rid of a hangover??No ?- How often do you exercise??Daily ?- How vigorously can you exercise??Minimally ?- How often do you use seatbelts??Always ?- In the past month, how often have you had sex??__ ?- Do you have any significant difficulties or dysfunction during sex??No, never ?- How many partners do you have??__ ?- How often do you experience pain with sex??Never ?- How often do you use condoms during sex??Always ?MENTAL HEALTH ASSESSMENT?- ?- In the past two weeks, how often have you felt depressed, down or hopeless??Never ?- In the past month, how often have you felt anxious or stressed??Never ?- What is your average level of daily stress??None ?- In the past two weeks, how often have you felt a lack of pleasure or interest in doing things??Never ?- In the past two weeks, how often have you had difficulty falling asleep or episodes of sleeping too long??Never ?- In the past two weeks, how often have you had a lack of energy??Never ?- In the past two weeks, how often have you had feelings of being better off or thoughts of harming yourself??Never ?- Have you ever attempted to harm yourself??No ?GENERAL HEALTH/PAIN ASSESSMENT?- ?- In the past month, how often did you experience pain??Never ?- In the past month, how much has pain affected your ability to work??Not at all ?- In the past month, how much has pain affected your ability to walk??Not at all ?- In the past month, how much has pain affected your relationship with other people??Not at all ?- On a scale of 1-10, how bad would you rate your average daily pain??No pain ?- How would you describe the ease with which you can prepare your own food??Very easy ?- How would you describe the ease with which you can bathe or clean yourself??Very easy ?- How would you describe the ease with which you can dress yourself??Very easy ?- How hard is it to use the toilet by yourself??Not hard at all ?- How would you describe the ease with which you can do your own shopping??Very easy ?- How would you describe the ease with which you can get around your house??Very easy ?- How would you describe your ability to pay your bills??Very good ?- How would you describe your ability to plan your daily and monthly budgets??Very good ?- How would you describe your ability to do routine housework??Very good ?HOME SAFETY/ASSISTANCE?- ?- Do you feel like you are safe in your current home??Yes ?- How many times have you fallen in your home??Never ?- How much would you need to change your living circumstances to feel safe??Not at all ?- Do you feel that living somewhere else would be good for you??No ?- How much help do you feel you need at home??None at all ?- How much does your family help with daily or routine chores??Not at all ?Immunization Status addressed?-?Yes ?Depression Screening?-?No ?Vision Screening?-?No ?Hearing Screening?-?No ?Fall Risk and Home Safety?-?Negative, no falls in the past year, no difficulty walking, or getting out of bed or chair ?Medication evaluation and reconcilliation performed?Yes ?Vision screening recommended?Yes ?Literature offered to the patient?Yes ?Referrals?physical therapy offered for gait balance and mobility evaluation, fall prevention home evauation offered, DEXA screening offered ?Get Up and Go Evaluation?under 20 seconds ?Psychosocial Risks?-?No overt psychosocial risks shown, observed, or mentioned ?Behavioral Risks?-?Patient seems very well adjusted and no behavorial issues noted ?Activities of daily living?-?Not impaired ?Cognitive Screening?-?No overt cognitive deficiency is apparent by direct observation ???Depression Screening:?PHQ-9?Little interest or pleasure in doing things?Not at all ?Feeling down, depressed, or hopeless?Not at all ?Trouble falling or staying asleep, or sleeping too much?More than half the days ?Feeling tired or having little energy?Not at all ?Poor appetite or overeating?More than half the days ?Feeling bad about yourself or that you are a failure, or have let yourself or your family down?Not at all ?Trouble concentrating on things, such as reading the newspaper or watching television?Not at all ?Moving or speaking so slowly that other people could have noticed; or the opposite, being so fidgety or restless that you have been moving around a lot more than usual?Not at all ?Thoughts that you would be better off or of hurting yourself in some way?Not at all ?Total Score?4 ?Interpretation?Minimal Depression * ROS:?General/Constitutional:?Overall health?Good.?Change in appetite?denies.?Chills?denies.?Fever?denies.?Night sweats?denies.?Sleep disturbance?denies.?Weight gain?admits, 5?pounds.?Weight loss?denies.?Neurologic:?Difficulty speaking?denies.?Dizziness?denies.?Gait abnormality?denies.?Headache?denies.?Loss of strength?denies.?Memory loss?denies.?Seizures?denies.?Tingling/Numbness?denies .?Ophthalmologic:?Blurred vision?denies.?Discharge?denies.?Dry eye?denies.?Red eye?denies.?ENT:?Change in Voice?Denies.?Cold Symptoms?Denies.?Cough?Denies.?Dizziness?Denies.?Nasal Congestion?Denies.?Otalgia?Denies.?postnasal drip?Denies.?Blocked ear?denies.?Nosebleed?denies.?Snoring?denies.?Cardiovascular:?Diaphoresis?Denies.?Pedal Edema?Denies.?PND (Paroxsymal nocturnal dyspnea)?Denies.?Chest pain?denies.?Difficulty laying flat?denies.?Dyspnea on exertion?denies.?Heart murmur?denies.?Orthopnea?denies.?Respiratory:?Snoring?denies.?Asthma?denies.?Cough?denies.?Shortness of breath with exertion?denies.?Sputum production?denies.?Wheezing?denies.?Gastrointestinal:?Change in bowel habits?denies.?Constipation?denies.?Decreased appetite?denies.?Diarrhea?denies.?Heartburn?denies.?Nausea?denies.?Vomiting?kelly es.?Musculoskeletal:?tingling/numbness?Denies.?myalgias?Denies.?Joint Swelling?Denies.?extremeties?normal.?Arthritis?denies.?Back problems?denies.?Carpal tunnel?denies.?Joint stiffness?denies.?Muscle aches?denies.?Endocrine:?Bowel Changes?Denies.?Breast Discharge?Denies.?poor libido?Denies.?Cold intolerance?denies.?Excessive sweating?denies.?Excessive thirst?denies.?Frequent urination?denies.?Thyroid problems?denies.?Skin:?Bruising?Denies.?Eczema?denies.?Hair changes?denies.?Rash?denies.?Skin lesion(s)?denies.?Psychiatric:?Anxiety?denies.?Depressed mood?denies.?Difficulty sleeping?denies.?Nervous breakdown?denies.?Substance abuse?denies.?Urology:?abnormal menstrual bleeding?denies.?blood in urine?denies.?burning on urination?denies.?difficulty urinating?denies.?discharge?denies.?dysuria?denies.? * Medical History:? * Surgical History:?Neck surge ry by Dr Kurtz tonsfarrah laser eye surgery * Hospitalization/Major Diagno stic Procedure:? * Family History:?Mother: dece ased, diagnosed with Diabetes, Heart Disease.?Maternal uncle: diagnosed with Cancer.?Siblings: diagnosed with Heart Disease.? Mother had ESRD Uncle had throat cancer sister [place] with diabetes. * Social History:?Tobacco Use:?Tobacco Use/Smoking?Are you a?nonsmoker ???Drugs/Alcohol:?Alcohol Screen (Audit-C)?Did you have a drink containing alcohol in the past year??No ?Points?0 ?Interpretation?Negative ?Do you smoke marijuana?: no. ?Do you drink alcohol?: no?.?Miscellaneous:?Exercise: none. ?Living with: alone. ?Marital status: . ?Occupation: Works full-time. * Medications:?TakingBlood Pre ssure - Kit as directed once a day FreeStyle Marleen 14 Day [place] - Device as directed four times a day Fluticasone Propionate 50 MCG/ACT Suspension 1 spray in each nostril Nasally Once a day Glimepiride 2 MG Tablet TAKE 1 TABLET DAILY WITH BREAKFAST OR FIRST MAIN MEAL OF THE DAY Morphine Sulfate 15 MG Tablet 1 tablet as needed Orally every 4 hrs Ondansetron 4 MG Tablet Disintegrating 1 tablet on the tongue and allow to dissolve Orally Once a day Lisinopril 40 MG Tablet 1 tablet Orally Once a day Lantus 100 UNIT/ML Solution 30 units Subcutaneous Daily Chlorthalidone 25 MG Tablet 1/2 tablet Orally once a day Simvastatin 20 MG Tablet 1 tablet in the evening Orally Once a day FreeStyle Marleen 2 Sensor - Miscellaneous CHANGE EVERY 14 DAYS Jardiance 10 MG Tablet 1 tablet Orally Once a day metFORMIN HCl 1000 MG Tablet 1 tablet with a meal Orally twice a day amLODIPine Besylate 10 MG Tablet 1 tablet Orally Once a day Taking Blood Pressure - Kit as directed once a day Taking FreeStyle Marleen 14 Day [place] - Device as directed four times a day Taking Fluticasone Propionate 50 MCG/ACT Suspension 1 spray in each nostril Nasally Once a day Taking Glimepiride 2 MG Tablet TAKE 1 TABLET DAILY WITH BREAKFAST OR FIRST MAIN MEAL OF THE DAY Taking Morphine Sulfate 15 MG Tablet 1 tablet as needed Orally every 4 hrs Taking Ondansetron 4 MG Tablet Disintegrating 1 tablet on the tongue and allow to dissolve Orally Once a day Taking Lisinopril 40 MG Tablet 1 tablet Orally Once a day Taking Lantus 100 UNIT/ML Solution 30 units Subcutaneous Daily Taking Chlorthalidone 25 MG Tablet 1/2 tablet Orally once a day Taking Simvastatin 20 MG Tablet 1 tablet in the evening Orally Once a day Taking FreeStyle Marleen 2 Sensor - Miscellaneous CHANGE EVERY 14 DAYS Taking Jardiance 10 MG Tablet 1 tablet Orally Once a day Taking metFORMIN HCl 1000 MG Tablet 1 tablet with a meal Orally twice a day Taking amLODIPine Besylate 10 MG Tablet 1 tablet Orally Once a day Not- TakingTresiba FlexTouch 100 UNIT/ML Solution Pen-injector as directed Subcutaneous Latanoprost 0.005 % Solution 1 drop into affected eye in the evening Ophthalmic Once a day Lantus 100 UNIT/ML Solution as directed take 15 units Subcutaneous at bedtime Not- Taking Tresiba FlexTouch 100 UNIT/ML Solution Pen-injector as directed Subcutaneous Not-Taking Latanoprost 0.005 % Solution 1 drop into affected eye in the evening Ophthalmic Once a day Not-Taking Lantus 100 UNIT/ML Solution as directed take 15 units Subcutaneous at bedtime * Allergies:?Trulicity: pancre atitis - Side Effects - Criticality Highno[Allergies Verified] Objective: * Vitals:?Temp:96.9F, Oxygen s at %:96%, HR:64/min, BP:118/78mm Hg, Wt:202.8lbs, BMI:31.76Index, Ht: 67 in. * Examination: ???General Examination: ?Psychiatry?Normal.?GENERAL APPEARANCE:?Well developed, well nourished, in no acute distress.?MUSCULOSKELETAL:?pain on palpation on the right TMJ.? Mild malocclusion.?HEAD:?Normocephalic, atraumatic.?EYES:?Pupils equal, round, reactive to light and accommodation, sclera non-icteric.?EARS:?Normal.?ORAL CAVITY:?Normal.?THROAT:?Clear.?OROPHARYNX?Normal.?SINUSES?Normal.?NECK/THYROID:?Neck supple, full range of motion, no cervical lymphadenopathy.?SKIN:?Warm and dry, no suspicious lesions.?HEART:?S1, S2 normal regular rate and rhythm no murmurs, rubs, gallops .?LUNGS:?clear anteriorly and posteriorly good air movement no wheezes, rales, rhonchi .?BREASTS:?__.?ABDOMEN:?Soft, nontender, nondistended, bowel sounds present, normal.?EXTREMITIES:?Normal.?PERIPHERAL PULSES:?Normal.?NEUROLOGIC:?Nonfocal,? 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 .?Diabetic Foot Exam: ?Appearance?normal.?Light Touch Sensation?normal.?Sense of Vibration?normal.?Pulse: Posterior Tibial?2+.?Pulse: Dorsal Pedis?2+.?Hammer Toe?normal.?Tinea Pedis?negative.?Skin Changes?negative.? Assessment: * Assessment: 1.?Encounter for general monico lt medical examination without abnormal findings - Z00.00 (Primary)???2.?Type 2 diabetes mellitus with unspecified complications - E11.8???3.?Essential (primary) hypertension - I10???4.?Mixed hyperlipidemia - E78.2???5.?Sleep apnea, unspecified - G47.30???6.?Encounter for screening for malignant neoplasm of prostate - Z12.5??? Don is 69 years old [place] gentleman with insulin-dependent DM type II, hypertension, leg edema, obstructive sleep apnea is here today for annual physical.? Plan is as follows Insulin-dependent DM2.? He follows up with nurse practitioner Jackie Bennett and he is on Lantus 40 units along with glimepiride 2 mg daily and Metformin 1000 mg twice a day.? His last hemoglobin A1c was 7.4.? He recently had blood work done which is not available at this point.? He is on simvastatin 20 mg and lisinopril 40 mg daily.? He is seen elastic attacher overlock in the past 1 year.? Foot care were discussed with the patient. Hypertension/hyperlipidemia.? Blood pressure well controlled on lisinopril 40 mg and amlodipine 10 mg daily.? He is on simvastatin 20 mg and is tolerating the medications fine. EKG is normal sinus rhythm at 71 bpm with no acute ST or T wave changes, no bundle branch blocks and normal intervals Obstructive sleep apnea.? Continue CPAP machine and it is helping. Obesity.? Complications of obesity discussed and advised to lose on average 6 pounds a month. He is up to date on health specific screening. He is a full code and Gracie Myles is his healthcare proxy. Plan: * Treatment: 2.?Encounter for screening f or malignant neoplasm of prostate?LAB: PSA (Serial Monitor)-[id number] (Ordered for 10/24/2024) * Procedure Codes:?3078F DIAST BP < 80 MM [id number] ANNUAL WELLNESS VST; PPS SUBSQT [id number] ELECTROCARDIOGRAM, [id number] ANNUAL ALCOHOL MISUSE SCREEN 15 [id number] ANNUAL DEPRESSION SCREENING 15 [id number] BODY MASS INDEX [id number] SCREEN DEPRESSION [id number] ELDER MALTX SCR DOC NEG NO F/U [id number] Pt scrn tbco id as non [id number] SYST BP < 140 MM FA1254F SYST BP LT 130 MM DS3803G SYST BP GE 130 - 139MM RDS2780 NORMAL BP READING DOC F/U NOT [id number] ADVNC CARE PLAN IN RCRD * Preventive Medicine:?Flu-2023 Shingrix- Done Pneumonia- Done Tdap. Covid- Done Eye exam- 2023 Colonoscopy- 2022 [facility] Gastro. * Follow Up:?6 Months * * Sign off status: Completed true * Provider:?BABS SANABRIA MD Date:?10/24 Generated for Maty griffin/Carissa/eTransmitting on:?11/15/2024 05:18 PM EDT History and Physical Notes * HPI (History of Present Illness) Category Sub-Category Detail Notes Category Not es Depression Screening PHQ-9 Little inte rest or pleasure in doing things: Not at all Feeling down, depressed, or hopeless: No t at all Trouble falling or staying a sleep, or sleeping too much: More than half the days Feeling tired or having little energy: N ot at all Poor appetite or overeating: More than h tavo the days Feeling bad about yourself o r that you are a failure, or have let yourself or your family down: Not at all Trouble concentrating on thi ngs, such as reading the newspaper or watching television: Not at all Moving or speaking so slowly that other people could have noticed; or the opposite, being so fidgety or restless that you have been moving around a lot more than usual: Not at all Thoughts that you would be b mami off or of hurting yourself in some way: Not at all Total Score: 4 Interpretation: Minimal Depression Medicare Annual Visit Type of Visit -: Subsequent Annual [facility] Visit Language or Communication barrier addressed -: Y es Health Risk Assessment DEMOGRAPHICS: - - How old [age]?: [age] - How would you best describ e your ethnicity?: Black or - How would you describe you r marital status?: __ . 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 : No - Have you ever used tobacco products?: No - What type of tobacco do yo u use or have you used?: __ - (If cigarette smoker) How long have you smoked?: __ - (If cigarette smoker) How many cigarettes do you smoke per day?: __ - How many alcoholic beverag es (i.e. 1oz hard liquor, one glass of wine, one bottle of beer) do you drink daily, on average?: None - Have you ever felt the nee d to cut down on drinking?: No - Have people annoyed you wi th criticism of your drinking?: No - Do you or have you felt gu ilty for drinking?: No - Have you ever felt the nee d to drink first thing in the morning to steady your nerves or to get rid of a hangover?: No - How often do you exercise?: Daily - How vigorously can you exercise?: Mini alana - How often do you use seatbelts?: Alway s - In the past month, how oft en have you had sex?: __ - Do you have any significan t difficulties or dysfunction during sex?: No, never - How many partners do you have?: __ - How often do you experienc e pain with sex?: Never - How often do you use condo ms during sex?: Always MENTAL HEALTH ASSESSMENT: - - In the past two weeks, how often have you felt depressed, down or hopeless?: Never - In the past month, how oft en have you felt anxious or stressed?: Never - What is your average level of daily stress?: None - In the past two weeks, how often have you felt a lack of pleasure or interest in doing things?: Never - In the past two weeks, how often have you had difficulty falling asleep or episodes of sleeping too long?: Never - In the past two weeks, how often have you had a lack of energy?: Never - In the past two weeks, how often have you had feelings of being better off or thoughts of harming yourself?: Never - Have you ever attempted to harm yourse lf?: No GENERAL HEALTH/PAIN ASSESSMENT: - - In the past month, how oft en did you experience pain?: Never - In the past month, how muc h has pain affected your ability to work?: Not at all - In the past month, how muc h has pain affected your ability to walk?: Not at all - In the past month, how muc h has pain affected your relationship with other people?: Not at all - On a scale of 1-10, how ba d would you rate your average daily pain?: No pain - How would you describe the ease with which you can prepare your own food?: Very easy - How would you describe the ease with which you can bathe or clean yourself?: Very easy - How would you describe the ease with which you can dress yourself?: Very easy - How hard is it to use the toilet by yourself?: Not hard at all - How would you describe the ease with which you can do your own shopping?: Very easy - How would you describe the ease with which you can get around your house?: Very easy - How would you describe you r ability to pay your bills?: Very good - How would you describe you r ability to plan your daily and monthly budgets?: Very good - How would you describe you r ability to do routine housework?: Very good HOME SAFETY/ASSISTANCE: - - Do you feel like you are s afe in your current home?: Yes - How many times have you fa llen in your home?: Never - How much would you need to change your living circumstances to feel safe?: Not at all - Do you feel that living so mewhere else would be good for you?: No - How much help do you feel you need at home?: None at all - How much does your family help with daily or routine chores?: Not at all Immunization Status addressed -: Yes Vision Screening -: No Depression Screening -: No Hearing Screening -: No Fall Risk and Home Safety -: Negative, n o falls in the past year, no difficulty walking, or getting out of bed or chair Medication evaluation and reconcilliatio n performed: Yes Vision screening recommended: Yes Literature offered to the patient: Yes Referrals: physical therapy offered for gait balance and mobility evaluation, fall prevention home evauation offered, DEXA screening offered Get Up and Go Evaluation: under 20 secon ds Psychosocial Risks -: No overt psychoso cial risks shown, observed, or mentioned Behavioral Risks -: Patient seems champ y well adjusted and no behavorial issues noted Activities of daily living -: Not impaired Cognitive Screening -: No overt cognitiv e deficiency is apparent by direct observation Patient Care Team - No Providers on Record Internal Medicine Mr. Myles is a 69 year old gentleman with DM type II, hypertension, hyperlipidemia here for follow up. He is physically active and goes to the gym 2 times a week. He gained 4 lbs since last visit. He does not appear anxious or depressed. He sleeps well on CPAP, appetite is good. No GI or symptoms. He denies any other active issues or concerns. Examination Category Sub-Category Detail Notes Category Not es General Examination GENERAL APPEARANCE: Well dev eloped, well nourished, in no acute distress HEAD: Normocephalic, atrau matic EYES: Pupils equal, round, reactive to light and accommodation, sclera non-icteric EARS: Normal THROAT: Clear NECK/THYROID: Neck supple, full ra nge of motion, no cervical lymphadenopathy HEART: S1, S2 normal regula r rate and rhythm no murmurs, rubs, gallops LUNGS: clear anteriorly and posteriorly good air movement no wheezes, rales, rhonchi ABDOMEN: Soft, nontender, non distended, bowel sounds present, normal NEUROLOGIC: Nonfocal, appropriat e motor strength normal upper and lower extremities, sensory exam intact SKIN: Warm and dry, no marcos picious lesions EXTREMITIES: Normal PERIPHERAL PULSES: Normal BREASTS: __ MUSCULOSKELETAL: pain on palpation on the right TMJ. 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
== END 2024-11-15 14:49 | disposition home or self-care (01) ==
LOC: HO.ENCR 14:12
PROVIDERS: PCP Hospitalist; Visit Provider Nurse Practitioner Adult Health
DX: E11.9 Type 2 diabetes mellitus without complications (principal)
CPT/HCPCS: 99214; G2211

== ENCOUNTER → 2024-11-15 14:11 | Outpatient (BNVA) | payer MEDICARE, SELFPAY | PROVIDERS: PCP Hospitalist; Visit Provider Nurse Practitioner Adult Health | DX: E11.9 Type 2 diabetes mellitus without complications (principal); Z79.4 Long term (current) use of insulin; Z79.84 Long term (current) use of oral hypoglycemic drugs | CPT/HCPCS: 82947; 99212 ==

== ENCOUNTER 2024-12-05 15:34 | Outpatient (AMB) | payer MEDICARE, SELFPAY ==
--- NOTE | 2024-12-05 15:41 | MHC.OFFVIS ---
Intake Visit Reasons: 3m/US Intake Note: Patient is present for a 3 month follow up/US Urology Medication:NONE Antibiotic Allergy:NONE Blood Thinner:NONE PVR:31ml Crown Ceramist Required: No Accompanied by: Self / Same As Patient Allergies No Known Allergies Allergy (Verified 12/05/24 15:42) HPI Comments Details: 12/05/24--discussed renal and scrotal ultrasound results Right hydrocele. We will schedule outpatient hydrocelectomy. Right kidney possible 5 mm stone. The patient had a CAT scan 2023 no nephrolithiasis was noted at that time we will continue to monitor kidneys. Patient instructed to increase fluids 09/12/24--Don is a 69-year-old male who is here for evaluation he has concerns regarding right scrotal swelling. He denies pain. He also complains of getting up frequently at nighttime. Denies dysuria. AUA symptom score 15/35. Patient was unable to give urine sample bladder scan PVR 111 mL. Review of chart PSA-01/09/24--2.15 ng/mL. I have discussed trial of tamsulosin 0.4 mg at bedtime. Discussed side effects include retrograde ejaculation. Will check ultrasound urinary tract including scrotum. Examination right testicular swelling suggestive of right hydrocele. Testicles nontender. [facility] Medical History Hx of cataract Tubular adenoma Diverticulosis Internal hemorrhoids without complication Glaucoma Diabetes mellitus, type II Hyperlipidemia HTN (hypertension) Surgical History Hx of colonoscopy History of surgical procedure on eye proper using laser Family History Mother HTN (hypertension) High cholesterol Diabetes Pacemaker Social History Household Members: Significant Other Alcohol intake: never Patient Tobacco Use Status: Never used Tobacco Review of Systems Const All systems reviewed & are unremarkable except as noted in HPI and below Reports no additional complaints Eyes Reports no additional complaints ENT Reports no additional complaints Card Reports no additional complaints Resp Reports no additional complaints GI Reports no additional complaints Reports as per HPI Musc Reports no additional complaints Skin/Breast Reports system reviewed and no additional complaints, except as documented Neuro Reports no additional complaints Psych Reports no additional complaints Endo Reports no additional complaints Tony/Lymph Reports no additional complaints Aller/Immun Reports no additional complaints Results AMB Urinalysis, Automated UA Leukoctes 0 Radha/uL Last Edit by Lexi Loredo on 12/05/24 16:30 UA Nitrite Last Edit by Lexi Loredo on 12/05/24 16:30 UA Urobilinogen 0.2 mg/dL Last Edit by Lexi Loredo on 12/05/24 16:30 UA Protein 0 mg/dL Last Edit by Lexi Loredo on 12/05/24 16:30 UA pH 6.0 Last Edit by Lexi Loredo on 12/05/24 16:30 UA Blood 0 Gigi/uL Last Edit by Leix Loredo on 12/05/24 16:30 UA Specific [place] 1.015 Last Edit by Lexi Loredo on 12/05/24 16:30 UA Ketone Negative Last Edit by Lexi Loredo on 12/05/24 16:30 UA Bilirubin 0 mg/dL Last Edit by Lexi Loredo on 12/05/24 16:30 UA Glucose 1000 mg/dL Last Edit by Lexi Loredo on 12/05/24 16:30 Assessment & Plan Assessment & Plan Orders: Orders AMB Urinalysis Automated Today Z13.9 - Encounter for screening, unspecified Coding
--- OUTSIDE RECORDS SUMMARY | 2024-12-05 18:22 | XMS_ITS ---
Author Organization [facility] Address [address] [facility] [address] [place] [address] Care Team Providers Care Proofing Machine Operator Name Role Phone BABS SANABRIA Primary Care Provider REASON FOR VISIT Amlodipine refill Medications Medication SIG (Take, Route, Frequency, Duration) Notes Start Date End Date Status amLODIPine Besylate 10 MG 1 tablet Orall y Once a day for 90 days Active Encounters Encounter Location Date Provider Diagnosis [facility] [address] [facility] [address] [place] [address] 10/04/2024 BABS SANABRIA Plan Of Treatment Medication Medication Name Sig Start Date Stop Date Notes amLODIPine Besylate 10 MG 1 tablet Orall y Once a day for 90 days Next Appt Details Provider Name:BABS SANABRIA , 05/01/2025 02:30:00 PM, [address] [place] [address], [place], [address], Progress Notes * Don MYLESDOB:1955 (69 yo M)Acc No.[id number]:10/04/2024 Patient:?Don MYLES :1955???Age:69 Y???Sex:Male Address:[address], [address] , [place] [address] * Refills? Refill amLODIPine Besylate Tablet, 10 MG, Orally, 90, 1 tablet, Once a day, 90 days, Refills=3 * true * Date:? Generated for Markusi elias/Fapasqualeg/eTransmitting on:?12/05/2024 06:22 PM EDT
--- OUTSIDE RECORDS SUMMARY | 2024-12-05 18:22 | XMS_ITS ---
Author Organization [facility] Address [address] [facility] [address] [place] [address] Care Team Providers Care Fashion Journalist Name Role Phone BABS SANABRIA Primary Care [...] 90 days Active FreeStyle Marleen 14 Day Chelsea - as directed four times a day [...] 10/24/2024 Encounters Encounter Location Date Provider Diagnosis [facility] [address] [address] 10/24/2024 BABS SANABRIA Type 2 diabetes mellitus [...] lisinopril 40 mg daily. He is seen reverberatory furnace supervisor in the past 1 year. Foot care [...] lisinopril 40 mg daily. He is seen reverberatory furnace supervisor in the past 1 year. Foot care [...] lisinopril 40 mg daily. He is seen reverberatory furnace supervisor in the past 1 year. Foot care [...] lisinopril 40 mg daily. He is seen reverberatory furnace supervisor in the past 1 year. Foot care [...] lisinopril 40 mg daily. He is seen reverberatory furnace supervisor in the past 1 year. Foot care [...] lisinopril 40 mg daily. He is seen reverberatory furnace supervisor in the past 1 year. Foot care [...] Future Test Test Name Order Date Hemoglobin [id number] 10/24/2024 Albumin/Creatinine Ratio,Urine-[id number] Lipid Panel-202224 10/24/2024 Comp. Metabolic Panel [id number] 2024 PSA (Serial Monitor)-[id number] 10/24/2024 Next Appt Details Follow Up: 6 Months, Reason: Provider Name:BABS SANABRIA , 05/01/2025 02:30:00 PM, [address] [place] [address], [phone], Progress Notes * Don MYLESDOB:1955 (69 yo M)Acc No.[id number]:10/24/2024 Progress Note Patient:?Don MYLES Provider:?BABS SANABRIA MD :1955???Age:69 Y???Sex:Male Zeke e:10/24/2024 Address:[address] [place] [address], [address] Subjective: * Chief Complaints: * ???Medicare [...] had ESRD Uncle had throat cancer sister [place] with diabetes. * Social History:?Tobacco Use:?Tobacco Use/Smoking?Are you a?nonsmoker ???Drugs/Alcohol:?Alcohol Screen (Audit-C)?Did you have a drink containing alcohol in the past year??No ?Points?0 ?Interpretation?Negative ?Do you smoke marijuana?: no. ?Do you drink alcohol?: no?.?Miscellaneous:?Exercise: none. ?Living with: alone. ?Marital status: . ?Occupation: Works full-time. * Medications:?TakingBlood Pre ssure - Kit as directed once a day FreeStyle Marleen 14 Day Chelsea - Device as directed four times a [...] a day Taking FreeStyle Marleen 14 Day Chelsea - Device as directed four times a [...] sensory exam intact.?FEMALE GENITOURINARY:?__.?MALE GENITOURINARY:?_declined a prostate exam.?PODIATRIC:?Normal.?Costume Cutter? .?Diabetic Foot Exam: ?Appearance?normal.?Light Touch Sensation?normal.?Sense of [...] lisinopril 40 mg daily.? He is seen reverberatory furnace supervisor in the past 1 year.? Foot care [...] or malignant neoplasm of prostate?LAB: PSA (Serial Monitor)-[id number] (Ordered for 10/24/2024) * Procedure Codes:?3078F DIAST BP < 80 MM [id number] ANNUAL WELLNESS VST; PPS SUBSQT [id number] ELECTROCARDIOGRAM, [id number] ANNUAL ALCOHOL MISUSE SCREEN 15 OHFM5631 ANNUAL DEPRESSION SCREENING 15 [id number] BODY MASS INDEX YPGM1118F SCREEN DEPRESSION [id number] ELDER MALTX SCR DOC NEG NO F/U GHIU9754 Pt scrn tbco id as non [id number] SYST BP < 140 MM KN8947Y SYST BP LT 130 MM HQ6168U SYST BP GE 130 - 139MM BAF4836 NORMAL BP READING DOC F/U NOT [id number] ADVNC CARE PLAN IN RCRD * Preventive Medicine:?Flu-2023 Shingrix- Done Pneumonia- Done Tdap. Covid- Done Eye exam- 2023 Colonoscopy- 2022 [facility] Gastro. * Follow Up:?6 Months * * Sign off status: Completed true * Provider:?BABS SANABRIA MD Date:?10/24 Generated for Maty griffin/Carissa/eTransmitting on:?12/05/2024 06:22 PM EDT History and Physical Notes * [...] Poor appetite or overeating: More than h skilled nursing the days Feeling bad about yourself o [...] Visit Type of Visit -: Subsequent Annual [facility] Visit Language or Communication barrier addressed -: [...] Normal Psychiatry Normal OROPHARYNX Normal SINUSES Normal Costume Cutter Diabetic Foot Exam Appearance normal Light Touch Sensation normal Sense of Vibration normal Pulse: Posterior Tibial 2+ Pulse: Dorsal Pedis 2+ Hammer Toe normal Tinea Pedis negative Skin Changes negative
--- OUTSIDE RECORDS SUMMARY | 2024-12-05 18:22 | XMS_ITS ---
Author Organization [facility] Address [address] [facility] [address] [place] [address] Care Team Providers Care Contribution Solicitor Name Role Phone BABS SANABRIA Primary Care Provider REASON FOR VISIT Lab orders be printed Encounters Encounter Location Date Provider Diagnosis [facility] [address] [facility] [address] [place] [address] 10/21/2024 BABS SANABRIA Plan Of Treatment Next Appt Details Provider Name:BABS SANABRIA , 05/01/2025 02:30:00 PM, [address] [facility] [address], [place], [address], Progress Notes * PETERSONDonDOB:1955 (69 yo M)Acc No.[id number]:10/21/2024 Patient:?Don MYLES :1955???Age:69 Y???Sex:Male Address:[address], [address] , [place] [address] * true * Date:? Generated for Printi ng/Fapasqualeg/eTransmitting on:?12/05/2024 06:22 PM EDT
--- OUTSIDE RECORDS SUMMARY | 2024-12-05 18:23 | XMS_ITS | Patient Health Record ---
Author Organization [facility] Address [address] [place] [address] Care Team Providers Care Grocery Shopper Name Role Phone ELLY BRICE Primary Care Provider Fanny Pelaez Unavailable [phone] Allergies Allergen (clinical drug ingredient) Drug/Non Drug Allergy documented on EMR Reaction Allergy Type Onset Date Status dulaglutide Trulicity pancreatitis Drug Allergy Ac tive Reason For Referral Reason Evaluation and manag ement - Insulin teaching Diagnosis 1 Type 2 diabetes mani itus with unspecified complications (E11.8) Referral Organization [facility] Referring Provider First Name [...] for 90 days 08/19/2024 Active FreeStyle Marleen 14 Day [place] - as directed four times a day for 30 days 07/30/2022 Active metFORMIN HCl 1000 MG 1 tablet with a me al Orally twice a day for 90 days Active Fluticasone Propionate 50 MCG/ACT 1 spray in each nostril Nasally Once a day for 90 days 09/01/2023 Active amLODIPine Besylate 10 MG 1 tablet Orall y Once a day for 90 days Active Glimepiride 2 MG TAKE 1 TABLET DAILY WITH BREAKFAST OR FIRST MAIN MEAL OF THE DAY for 90 days Active Tresiba FlexTouch 100 UNIT/ML as directed Subcutaneous Not-Taking Morphine Sulfate 15 MG 1 tablet as neede d Orally every 4 hrs for 5 days 01/15/2024 Active Latanoprost 0.005 % 1 drop into affected eye in the evening Ophthalmic Once a day Not-Taking Ondansetron 4 MG 1 tablet on the tong ue and allow to dissolve Orally Once a day for 10 days Active Lantus 100 UNIT/ML as directed take 15 units Subcutaneous at bedtime for 30 days 02/25/2024 Not-Taking Lisinopril 40 MG 1 tablet Orally Once a day for 90 days Active Lantus 100 UNIT/ML 30 units Subcutaneou s Daily for 30 days 08/19/2024 Active Chlorthalidone 25 MG 1/2 tablet Orally o nce a day for 90 days Active Simvastatin 20 MG 1 tablet in the even ing Orally Once a day for 90 days Active FreeStyle Marleen 2 Sensor - CHANGE EVERY 14 DAYS for 30 days Active Blood Pressure - as directed once a d ay for 30 days 03/01/2021 Active Immunizations Vaccine Route Administration Date Status [...] 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 2 diabetes mellitus (109312224) Type 2 diabetes mellitus with unspecified complications (E11.8) Active confirmed Problem Mixed hyperlipidemia (505313773) Mixed hyperlipidemia (E78.2) Active confirmed Problem Sleep apnea (64111177) Sleep apnea, unspecified (G47.30) Active confirmed Problem Glaucoma (18281137) Unspecified glaucoma (H40.9) Active confirmed Problem Essential hypertension (09863282) Essential (primary) hypertension (I10) Active confirmed Problem Obstructive uropathy (6177223) Other obstructive and reflux uropathy (N13.8) Active confirmed Vital Signs Heart Rate 64 /min 10/24/2024 Temperature 96.9 degrees Fahrenheit 10/24/2024 Blood pressure diastolic 78 mm Hg 10/24/2024 Oximetry 96 % 10/24/2024 Height 67 in 10/24/2024 Blood pressure systolic 118 mm Hg 10/24/2024 Weight 202.8 lbs 10/24/2024 BMI 31.76 kg/m2 10/24/2024 Encounters Encounter Location Date Provider Diagnosis [address] [place] [address] 01/15/2024 BRICEPEDRO LUIS SANABRIA Type 2 diabetes mellitus with unspecified complications E11.8 ; Acute pancreatitis without necrosis or infection, unspecified K85.90 ; Essential (primary) hypertension I10 ; Mixed hyperlipidemia E78.2 and Sleep apnea, unspecified G47.[address] [place] [address] 02/25/2024 Fanny Pelaez Type 2 diabetes mellitus with unspecified complications E11.[address] [place] [address] 04/29/2024 BABS SANABRIA Type 2 diabetes mellitus with unspecified complications E11.8 ; Essential (primary) hypertension I10 and Mixed hyperlipidemia E78.[address] [place] [address] 10/24/2024 BRICEPEDRO LUIS SANABRIA Type 2 diabetes mellitus with unspecified complications E11.8 ; Encounter for general adult medical examination without abnormal findings Z00.00 ; Essential (primary) hypertension I10 ; Mixed hyperlipidemia E78.2 ; Sleep apnea, unspecified G47.30 and Encounter for screening for malignant neoplasm of prostate Z12.[address] [place] [address] 01/12/2024 BABS SANABRIA Type 2 diabetes mellitus with unspecified complications E11.[address] [place] [address] 01/13/2024 BRICE GUL [facility] [address] [place] [address] 01/15/2024 BRICE GUL [facility] [address] [place] [address] 01/18/2024 BRICE GUL [facility] [address] [place] [address] 01/28/2024 [facility] [address] [place] [address] 02/01/2024 BRICE GUL [facility] [address] [place] [address] 02/07/2024 [facility] [address] [place] [address] 02/10/2024 [facility] [address] [place] [address] 02/18/2024 [facility] [address] [place] [address] 02/22/2024 [facility] [address] [place] [address] 02/22/[facility] [address] [facility] [place] [address] 02/23/2024 [facility] [address] [place] [address] 03/01/2024 BRICE GUL [facility] [address] [facility] [address] 03/02/2024 BRICE GUL [facility] [address] [place] [address] 03/02/2024 [facility] [address] [place] [address] 03/10/2024 [facility] [address] [place] [address] 03/16/2024 [facility] [address] [place] [address] 05/20/2024 [facility] [address] [place] [address] 05/24/2024 [facility] [address] [place] [address] 06/10/2024 [facility] Type 2 diabetes mellitus with unspecified complications E11.8 [facility] [address] [facility] [place] [address] 06/10/2024 [facility] [address] [place] [address] 06/10/2024 [facility] [address] [place] [address] 07/11/2024 [facility] [address] [facility] [place] [address] 08/19/2024 [facility] [address] [facility] [place] [address] 08/19/2024 BRICE GUL Postnasal drip R09.8 2 [facility] [address] [facility] [place] [address] 08/26/2024 [facility] [address] [place] [address] 08/30/2024 BRICE [facility] [address] [facility] [place] [address] 09/27/2024 [facility] [address] [place] [address] 10/04/2024 [facility] [address] [facility] [place] [address] 10/21/2024 BRICE GUL Assessments Encounter Date Diagnosis (ICD Code) Assessment Notes Treatment Notes Treatment Clinical Notes Section Notes 01/12/2024 Type 2 diabetes mellitus with unspecified [...] seeing a nurse practitioner Jackie Santacruz at [facility] and has also seen a special education paraeducator and his home blood sugar numbers are improving. He is currently on long-acting insulin 34 units along with other medications as mentioned above. He has seen an pan cleaner for the past year. Foot care discussed. check A1c. Hypertension. Blood pressure well controlled on current regimen. Hyperlipidemia. Continue Simvastatin 20 MG once a day. Screening blood work before next appointment. General health concerns discussed with patient. Scribe services used to formulate this note under HIPAA compliance and under [place] law mandated for scribe services. Patient aware of service. Verbal consent and written consent taken from the patient. Patient understands and verbalizes understanding of the scribes services and all questions answered regarding scribes services. Patient agrees to use of scribes services. 06/10/2024 Type 2 diabetes mellitus with unspecified complications (ICD-10 - E11.8) 08/19/2024 Postnasal drip (ICD-10 - R09.82) 10/24/2024 Type 2 diabetes mellitus with unspecified [...] lisinopril 40 mg daily. He is seen pan cleaner in the past 1 year. Foot care [...] lisinopril 40 mg daily. He is seen pan cleaner in the past 1 year. Foot care [...] and Gracie Myles is his healthcare proxy. 01/15/2024 Type 2 diabetes mellitus with unspecified complications (ICD-10 - E11.8) Mr. Myles is 68 years old pleasant gentleman with DM type II on Trulicity, hypertension, hyperlipidemia, sleep apnea is here today for follow-up after a visit to [facility]. He had CT abdomen and [...] today for follow-up after a visit to [facility] ER. He had CT abdomen and [...] CPAP machine and no daytime sleepiness. 01/15/2024 Essential (primary) hypertension (ICD-10 - I10) Mr. Myles is 68 years old pleasant gentleman with DM type II on Trulicity, hypertension, hyperlipidemia, sleep apnea is here today for follow-up after a visit to [facility]. He had CT abdomen and [...] on CPAP machine and no daytime sleepiness. 10/24/2024 Essential (primary) hypertension (ICD-10 - I10) [...] lisinopril 40 mg daily. He is seen pan cleaner in the past 1 year. Foot care [...] and Gracie Myles is his healthcare proxy. 04/29/2024 Essential (primary) hypertension (ICD-10 - I10) Mr. Myles is a 69 year old gentleman with DM type II, hypertension, hyperlipidemia here for follow up. Plan is as follows: Type II diabetes mellitus. Last A1c 8.0. He has started seeing a nurse practitioner Jackie Santacruz at [facility] and has also seen a special education paraeducator and his home blood sugar numbers are improving. He is currently on long-acting insulin 34 units along with other medications as mentioned above. He has seen an pan cleaner for the past year. Foot care discussed. check A1c. Hypertension. Blood pressure well controlled on current regimen. Hyperlipidemia. Continue Simvastatin 20 MG once a day. Screening blood work before next appointment. General health concerns discussed with patient. Scribe services used to formulate this note under HIPAA compliance and under [place] law mandated for scribe services. Patient aware [...] seeing a nurse practitioner Jackie Santacruz at [facility] and has also seen a special education paraeducator and his home blood sugar numbers are improving. He is currently on long-acting insulin 34 units along with other medications as mentioned above. He has seen an pan cleaner for the past year. Foot care discussed. check A1c. Hypertension. Blood pressure well controlled on current regimen. Hyperlipidemia. Continue Simvastatin 20 MG once a day. Screening blood work before next appointment. General health concerns discussed with patient. Scribe services used to formulate this note under HIPAA compliance and under [place] law mandated for scribe services. Patient aware of service. Verbal consent and written consent taken from the patient. Patient understands and verbalizes understanding of the scribes services and all questions answered regarding scribes services. Patient agrees to use of scribes services. 10/24/2024 Mixed hyperlipidemia (ICD-10 - E78.2) Don [...] lisinopril 40 mg daily. He is seen pan cleaner in the past 1 year. Foot care [...] and Gracie Myles is his healthcare proxy. 01/15/2024 Mixed hyperlipidemia (ICD-10 - E78.2) Mr. Myles is 68 years old pleasant gentleman with DM type II on Trulicity, hypertension, hyperlipidemia, sleep apnea is here today for follow-up after a visit to [facility] ER. He had CT abdomen and [...] today for follow-up after a visit to [facility] ER. He had CT abdomen and [...] on CPAP machine and no daytime sleepiness. 10/24/2024 Sleep apnea, unspecified (ICD-10 - G47.30) [...] lisinopril 40 mg daily. He is seen pan cleaner in the past 1 year. Foot care [...] lisinopril 40 mg daily. He is seen pan cleaner in the past 1 year. Foot care [...] is his healthcare proxy. Plan Of Treatment Pending Test Test Name Order Date COMPREHENSIVE METABOLIC PANEL 01/07/2023 COMPREHENSIVE METABOLIC PANEL 06/15/2023 HEMOGLOBIN A1C 06/15/2023 HEMOGLOBIN A1C WITH EST GLUCOSE 06/25/20 22 HEMOGLOBIN A1C WITH EST GLUCOSE 01/08/20 23 LIPID PANEL 01/07/2023 LIPID PANEL 06/15/2023 MICROALBUMIN, URINE 06/15/2023 MICROALBUMIN, URINE 01/07/2023 PSA, SCREEN 06/25/2022 PSA, SCREEN 01/07/2023 CBC 07/24/2022 COMPREHENSIVE METABOLIC PANEL 07/24/2022 LIPID PROFILE 07/24/2022 PROSTATIC SPECIFIC ANTIGEN 07/24/2022 MICROSCOPIC, URINE 07/24/2022 Albumin/Creatinine Ratio,[id number] Comp. Metabolic Panel [id number] 2023 Hemoglobin A1c 01/12/2024 Future Test Test Name Order Date Hemoglobin [id number] 10/24/2024 Albumin/Creatinine Ratio,Urine-[id number] Lipid Panel-[id number] 10/24/2024 Comp. Metabolic Panel [id number] 2024 PSA (Serial Monitor)-[id number] 10/24/2024 Next Appt Details Provider Name:BABS SANABRIA , 05/01/2025 02:30:00 PM, [address] [place] [address], [phone], Insurance Providers Payer Name Payer Address Payer Phone Subscriber Number Group Number Insured Name Patient Relationship to Insured Coverage Start Date Coverage End Date [employer] [address] [address] [place] [address] [id number] Don Myles Self - patient is the insured Medical (General) History Medical History History ICD Code Hypertension Hyperlipidemia DM type II he sees Jackie mart at [place] Glaucoma cataracts Surgical History Surgery Date(Month/Year) Neck surgery by Dr Tessie chirinos laser eye surgery Hospitalization History Reason Date(Month/Year) surgery
== END 2024-12-05 16:41 | disposition home or self-care (01) ==
LOC: HO.HUSH 15:34
PROVIDERS: PCP Hospitalist; Visit Provider Urology
DX: Z13.9 Encounter for screening, unspecified (principal)

== ENCOUNTER → 2024-12-05 15:34 | Outpatient (BNVA) | payer MEDICARE, SELFPAY | PROVIDERS: PCP Hospitalist; Visit Provider Urology | DX: N43.3 Hydrocele, unspecified (principal); N40.1 Benign prostatic hyperplasia with lower urinary tract symptoms; R35.1 Nocturia; N50.89 Other specified disorders of the male genital organs | CPT/HCPCS: 81003; 99212 ==

== ENCOUNTER 2024-12-27 15:46 | Outpatient (AMB) | payer MEDICARE, OTHER, SELFPAY ==
--- NOTE | 2024-12-27 15:49 | A.OFFVIS_ITS ---
Vital Signs 12/27/24 16:01 Height 5 ft 8 in Weight 200 lb BMI 30.4 BP 134/74 Blood Pressure Location Rt brachial Position Sitting Pulse 74 Pulse Source Pulse Oximeter Pulse Oximetry (%) 95 Oxygen Delivery Method Room Air Intake Visit Reasons: 6 mnth follow up Intake Note: ESTABLISHED PATIENT for mgmt of CIC + hemo. Diabetic. Recently referred by our office [place] [facility] [place]; Pt denies any GI sx or concerns at this time. Pt is doing well with new ordnance engineer. Has procedure for hydrocele next week with Dr. Yanes. Thaw Shed Heater Tender Required: No Accompanied by: Self / Same As Patient Allergies No Known Allergies Allergy (Verified 12/27/24 15:50) HPI HPI 6 mnth follow up: Details: LAST VISIT Diverticulosis Tubular adenoma History of acute pancreatitis Plan Referral to Urology per patient's request although his symptoms of urinary frequency is most likely related to Jardiance. Patient was instructed to drink more fluids. Patient denies any abdominal pain or discomfort. Denies any melena, hematochezia, unintentional weight loss or ribbon like stools. Patient was encouraged to continue with diet and follow-up with perioperative educator and endocrinology. Patient will follow-up in this office in 6 months, sooner on as needed basis. He is agreeable to this plan and verbalizes understanding of instructions. He was given the opportunity to ask questions and all questions answered. ? Thank you for allowing me to participate in his care Orders Referrals Urology Referral Z87.898 Medications Discontinued ondansetron Discontinued Reason: Patient no longer taking 4 mg PO Q8H PRN 10 tabs 0RF nausea and vomiting morphine Partial Fill upon patient request. Discontinued Reason: Patient no longer taking 15 mg PO Q6H 3 days PRN 12 tabs 0RF pain (scale score 7-10) TODAY'S VISIT: Patient is here today for follow-up. Patient has been followed with Endocrinology for managing his blood sugars. Patient reports that he is doing better. Last visit patient was referred to urologist. Patient is scheduled for procedure next week with Dr. Yanes for hydrocele. Patient reports no GI concerning symptoms at the visit today. Patient is due to go for colonoscopy in February of 2026. Patient denies melena, hematochezia, unintentional weight loss or ribbon like stools. Denies any dyspepsia, dysphagia or odynophagia. Patient denies any abdominal pain or discomfort. Since GLP1 was discontinued he no longer has any issues with abdominal pain. [facility] Medical History (Updated 12/29/24 @ 13:59 by Lulu Caldera, RN) BPH (benign prostatic hyperplasia) Hx of cataract Tubular adenoma Diverticulosis Internal hemorrhoids without complication Glaucoma Diabetes mellitus, type II Hyperlipidemia HTN (hypertension) Surgical History Hx of colonoscopy History of surgical procedure on eye proper using laser Family History Mother HTN (hypertension) High cholesterol Diabetes Pacemaker Social History Household Members: Significant Other Alcohol intake: never Patient Tobacco Use Status: Never used Tobacco Review of Systems Const Denies weight gain and Denies weight loss ENT Reports no additional complaints, Denies dysphagia and Denies odynophagia Card Reports no additional complaints Resp Reports no additional complaints GI Denies abdominal pain, Denies belching, Denies melena, Denies bloating, Denies change in bowel habits, Denies dysphagia, Denies excessive flatus, Denies dyspepsia, Denies heartburn, Denies diarrhea, Denies loose stools, Denies nausea, Denies odynophagia and Denies vomiting Reports no additional complaints and Reports urinary frequency Musc Reports no additional complaints Neuro Reports no additional complaints Psych Reports no additional complaints Endo Reports no additional complaints Physical Exam Vital Signs: Last Vital Signs Pulse 74 12/27/24 16:01 BP 134/74 12/27/24 16:01 Pulse Ox 95 12/27/24 16:01 Oxygen Delivery Method Room Air 12/27/24 16:01 BMI result Body Mass Index 30.4 Const General: healthy appearing and no acute distress Nutritional Appearance: obese Orientation/consciousness: patient oriented x3 Resp Effort & Inspection: normal respiratory effort, able to speak in complete sentences, no tracheal deviation and symmetric chest movement Auscultation: clear to auscultation bilaterally Cardio Rate: regular rate GI Inspection: Yes normal to inspection, No distended and Yes obesity Palpation (GI): Soft to palpation, not firm, nontender and No hepatosplenomegaly present Auscultation: normal bowel sounds General: Yes no CVA tenderness Back/Spine/Pelvis Back: no CVA tenderness Skin General skin exam: elasticity normal, turgor normal and dry skin Neuro General: patient oriented x3 Psych Appearance: grossly normal Mental Status: mental status grossly normal Assessment & Plan Assessment & Plan (1) Diverticulosis: Code(s): K57.90 - Diverticulosis of intestine, part unspecified, without perforation or abscess without bleeding Category: Medical (2) Tubular adenoma: Code(s): D36.9 - Benign neoplasm, unspecified site Category: Medical (3) History of acute pancreatitis: Code(s): Z87.19 - Personal history of other diseases of the digestive system Plan Patient will continue avoid dietary triggers and like and not. Continue follow- ups with his endocrinology. He will return to the office in 10 months so we can discuss going for colonoscopy. Patient was if he will have any GI concerning symptoms. He is agreeable to this plan and verbalizes understanding of instructions. He was given the opportunity to ask questions and all questions answered. Thank you for allowing me to participate in his care Coding Level of Care Code Est Pt Level 3 (30044) Diagnoses Diverticulosis K57.90 Tubular adenoma D36.9 History of acute pancreatitis Z87.19 Time Spent (min) 25 Comment 15 minutes spent with patient and additional 10 minutes spent reviewing his records
[2024-12-27 16:01] VITALS: BP 134/74; PULSE 74; O2SAT 95; BMI 30.4
--- OUTSIDE RECORDS SUMMARY | 2024-12-27 16:39 | XMS_ITS | Patient Health Record ---
Author Organization [facility] Address [address] [place] [address] Care Team Providers Care Superintendent Refuse Disposal Name Role Phone ELLY BRICE Primary Care Provider Fanny Pelaez Unavailable [phone] Allergies Allergen (clinical drug ingredient) Drug/Non Drug Allergy documented on EMR Reaction Allergy Type Onset Date Status dulaglutide Trulicity pancreatitis Drug Allergy Ac tive Reason For Referral Reason Evaluation and manag ement - Insulin teaching Diagnosis 1 Type 2 diabetes mani itus with unspecified complications (E11.8) Referral Organization [facility] Referring Provider First Name Fanny [...] days 08/19/2024 Active FreeStyle Marleen 14 Day [place] - as directed four times a day [...] 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) Type 2 diabetes mellitus with unspecified complications (E11.8) Active confirmed Problem Mixed hyperlipidemia (E78.2) Active confirmed Problem Sleep apnea (95433109) Sleep apnea, unspecified (G47.30) Active confirmed Problem Glaucoma (62773894) Unspecified glaucoma (H40.9) Active confirmed Problem Essential hypertension (52120347) Essential (primary) hypertension (I10) Active confirmed Problem Obstructive uropathy (4370097) Other obstructive and reflux uropathy (N13.8) Active confirmed Vital Signs Heart Rate 64 /min 10/24/2024 Temperature 96.9 degrees Fahrenheit 10/24/2024 Blood pressure diastolic 78 mm Hg 10/24/2024 Oximetry 96 % 10/24/2024 Height 67 in 10/24/2024 Blood pressure systolic 118 mm Hg 10/24/2024 Weight 202.8 lbs 10/24/2024 BMI 31.76 kg/m2 10/24/2024 Encounters Encounter Location Date Provider Diagnosis [address] [place] [address] 01/15/2024 BRICE RUTJose Carlos Type 2 diabetes mellitus with unspecified complications E11.8 ; Acute pancreatitis without necrosis or infection, unspecified K85.90 ; Essential (primary) hypertension I10 ; Mixed hyperlipidemia E78.2 and Sleep apnea, unspecified G47.[address] [place] [address] 02/25/2024 Fanny Pelaez Type 2 diabetes mellitus with unspecified complications E11.[address] [place] [address] 04/29/2024 BRICE RUTJose Carlos Type 2 diabetes mellitus with unspecified complications E11.8 ; Essential (primary) hypertension I10 and Mixed hyperlipidemia E78.[address] [place] [address] 10/24/2024 BRICE RUTJose Carlos Type 2 diabetes mellitus with unspecified complications E11.8 ; Encounter for general adult medical examination without abnormal findings Z00.00 ; Essential (primary) hypertension I10 ; Mixed hyperlipidemia E78.2 ; Sleep apnea, unspecified G47.30 and Encounter for screening for malignant neoplasm of prostate Z12.[address] [place] [address] 01/12/2024 BABS SANABRIA Type 2 diabetes mellitus with unspecified complications E11.[address] [place] [address] 01/13/2024 BABS [place] [address] [facility] [address] 01/15/2024 BRICE GUL [facility] [address] [facility] [address] 01/18/2024 BRICE GUL [facility] [address] [facility] [address] 01/28/2024 [facility] [address] [facility] [address] 02/01/2024 BRICE GUL [facility] [address] [facility] [address] 02/07/2024 [facility] [address] [facility] [address] 02/10/2024 [facility] [address] [facility] [address] 02/18/2024 [facility] [address] [facility] [address] 02/22/2024 BRICE GUL [facility] [address] [facility] [address] 02/22/2024 [facility] [address] [facility] [address] 02/23/2024 [facility] [address] [facility] [address] 03/01/2024 BRICE GUL [facility] [address] [facility] [address] 03/02/2024 BRICE GUL [facility] [address] [facility] [address] 03/02/2024 BRICE GUL [facility] [address] [facility] [address] 03/10/2024 [facility] [address] [facility] [address] 03/16/2024 [facility] [address] [place] [address] 05/20/2024 [facility] [address] [place] [address] 05/24/2024 [facility] [address] [place] [address] 06/10/2024 [facility] Type 2 diabetes mellitus with unspecified complications E11.8 [facility] [address] [place] [address] 06/10/2024 [facility] [address] [place] [address] 06/10/2024 [facility] [address] [facility] [place] [address] 07/11/2024 [facility] [address] [place] [address] 08/19/2024 [facility] [address] [facility] [place] [place] [address] 08/19/2024 BRICE GUL Postnasal drip R09.8 2 [facility] [address] [facility] [place] [address] 08/26/2024 [facility] [address] [facility] [place] [address] 08/30/2024 [facility] [address] [facility] [place] [address] 09/27/2024 [facility] [address] [facility] [place] [address] 10/04/2024 [facility] [address] [facility] [place] [address] 10/21/2024 BABS BETTENCOURTL Assessments Encounter Date Diagnosis (ICD Code) Assessment [...] today for follow-up after a visit to [facility]. He had CT abdomen and [...] today for follow-up after a visit to [facility] ER. He had CT abdomen and [...] seeing a nurse practitioner Jackie Santacruz at [facility] and has also seen a clinical trial educator and his home blood sugar numbers are improving. He is currently on long-acting insulin 34 units along with other medications as mentioned above. He has seen an director of quantitative research for the past year. Foot care discussed. check A1c. Hypertension. Blood pressure well controlled on current regimen. Hyperlipidemia. Continue Simvastatin 20 MG once a day. Screening blood work before next appointment. General health concerns discussed with patient. Scribe services used to formulate this note under HIPAA compliance and under [place] law mandated for scribe services. Patient aware [...] lisinopril 40 mg daily. He is seen director of quantitative research in the past 1 year. Foot care [...] lisinopril 40 mg daily. He is seen director of quantitative research in the past 1 year. Foot care [...] today for follow-up after a visit to [facility] ER. He had CT abdomen and [...] seeing a nurse practitioner Jackie Santacruz at [facility] and has also seen a clinical trial educator and his home blood sugar numbers are improving. He is currently on long-acting insulin 34 units along with other medications as mentioned above. He has seen an director of quantitative research for the past year. Foot care discussed. check A1c. Hypertension. Blood pressure well controlled on current regimen. Hyperlipidemia. Continue Simvastatin 20 MG once a day. Screening blood work before next appointment. General health concerns discussed with patient. Scribe services used to formulate this note under HIPAA compliance and under [place] law mandated for scribe services. Patient aware of service. Verbal consent and written consent taken from the patient. Patient understands and verbalizes understanding of the scribes services and all questions answered regarding scribes services. Patient agrees to use of scribes services. 10/24/2024 Essential (primary) hypertension (ICD-10 - I10) [...] lisinopril 40 mg daily. He is seen director of quantitative research in the past 1 year. Foot care [...] Gracie Myles is his healthcare proxy. 10/24/2024 Mixed hyperlipidemia [...] lisinopril 40 mg daily. He is seen director of quantitative research in the past 1 year. Foot care [...] Gracie Myles is his healthcare proxy. 04/29/2024 Mixed hyperlipidemia (ICD-10 - E78.2) Mr. Myles is a 69 year old gentleman with DM type II, hypertension, hyperlipidemia here for follow up. Plan is as follows: Type II diabetes mellitus. Last A1c 8.0. He has started seeing a nurse practitioner Jackie Santacruz at [facility] and has also seen a clinical trial educator and his home blood sugar numbers are improving. He is currently on long-acting insulin 34 units along with other medications as mentioned above. He has seen an director of quantitative research for the past year. Foot care discussed. check A1c. Hypertension. Blood pressure well controlled on current regimen. Hyperlipidemia. Continue Simvastatin 20 MG once a day. Screening blood work before next appointment. General health concerns discussed with patient. Scribe services used to formulate this note under HIPAA compliance and under [place] law mandated for scribe services. Patient aware [...] today for follow-up after a visit to [facility] ER. He had CT abdomen and [...] today for follow-up after a visit to [facility] ER. He had CT abdomen and [...] lisinopril 40 mg daily. He is seen director of quantitative research in the past 1 year. Foot care [...] lisinopril 40 mg daily. He is seen director of quantitative research in the past 1 year. Foot care [...] WITH EST GLUCOSE 01/08/20 23 LIPID PANEL 06/15/2023 LIPID PANEL 01/07/2023 MICROALBUMIN, URINE 06/15/2023 MICROALBUMIN, URINE 01/07/2023 PSA, SCREEN 06/25/2022 PSA, SCREEN 01/07/2023 CBC 07/24/2022 COMPREHENSIVE METABOLIC PANEL 07/24/2022 LIPID PROFILE 07/24/2022 PROSTATIC SPECIFIC ANTIGEN 07/24/2022 MICROSCOPIC, URINE 07/24/2022 Albumin/Creatinine Ratio,Urine-[id number] Comp. Metabolic Panel [id number] 2023 Hemoglobin A1c 01/12/2024 Future Test Test Name Order Date Hemoglobin [id number] 10/24/2024 Albumin/Creatinine Ratio,Urine-[id number] Lipid Panel-[id number] 10/24/2024 Comp. Metabolic Panel [id number] 2024 PSA (Serial Monitor)-[id number] 10/24/2024 Next Appt Details Provider Name:BABS Romo ELLY , 05/01/2025 02:30:00 PM, [address] [place] [address], [id number], Insurance Providers Payer Name Payer Address Payer Phone Subscriber Number Group Number Insured Name Patient Relationship to Insured Coverage Start Date Coverage End Date [employer] [address] [address] [place] [phone] [id number] Don Myles Self - patient is the insured Medical (General) History Medical History History ICD Code Hypertension Hyperlipidemia DM type II he sees Jackie mart at [facility] Glaucoma cataracts Surgical History Surgery Date(Month/Year) Neck surgery by Dr Tessie chirinos laser eye surgery Hospitalization History Reason Date(Month/Year) surgery
== END 2024-12-27 16:13 | disposition home or self-care (01) ==
LOC: HO.HGI 15:47
PROVIDERS: PCP Hospitalist; Visit Provider Nurse Practitioner Family
DX: K57.90 Diverticulosis of intestine, part unspecified, without perforation or abscess without bleeding (principal); D36.9 Benign neoplasm, unspecified site; Z87.19 Personal history of other diseases of the digestive system
CPT/HCPCS: 99213

== ENCOUNTER → 2024-12-27 15:46 | Outpatient (BNVA) | payer MEDICARE, OTHER, SELFPAY | PROVIDERS: PCP Hospitalist; Visit Provider Nurse Practitioner Family | DX: K57.90 Diverticulosis of intestine, part unspecified, without perforation or abscess without bleeding (principal); D36.9 Benign neoplasm, unspecified site; Z87.19 Personal history of other diseases of the digestive system | CPT/HCPCS: 99212 ==

== ENCOUNTER 2025-01-03 11:48 | Day surgery (SDC) | payer MEDICARE, OTHER, SELFPAY ==
--- OUTSIDE RECORDS SUMMARY | 2024-12-06 16:05 | XMS_ITS ---
Author Organization [facility] Address [address] [place] [address] Care Team Providers Care Database Support Name Role Phone BABS SANABRIA Primary Care Provider REASON FOR VISIT Lab orders be printed Encounters Encounter Location Date Provider Diagnosis [facility] [address] [facility] [address] [place] [address] 10/21/2024 BABS SANABRIA Plan Of Treatment Next Appt Details Provider Name:BABS SANABRIA , 05/01/2025 02:30:00 PM, [address] [facility] [address], [place], [address], Progress Notes * PETERSONDonDOB:1955 (69 yo M)Acc No.[id number]:10/21/2024 Patient:?Don MYLES :1955???Age:69 Y???Sex:Male Address:[address], [address] , [place] [address] * true * Date:? Generated for Printi ng/Fapasqualeg/eTransmitting on:?12/06/2024 04:05 PM EDT
--- OUTSIDE RECORDS SUMMARY | 2024-12-06 16:05 | XMS_ITS ---
Author Organization [facility] Address [address] [facility] [address] [place] [address] Care Team Providers Care Secret Service Agent Name Role Phone BABS SANABRIA Primary Care [...] 90 days Active FreeStyle Marleen 14 Day [place] - as directed four times a day [...] 10/24/2024 Encounters Encounter Location Date Provider Diagnosis [facility] [address] [address] 10/24/2024 BABS SANABRIA Type 2 diabetes mellitus [...] lisinopril 40 mg daily. He is seen lead handler in the past 1 year. Foot care [...] lisinopril 40 mg daily. He is seen lead handler in the past 1 year. Foot care [...] lisinopril 40 mg daily. He is seen lead handler in the past 1 year. Foot care [...] lisinopril 40 mg daily. He is seen lead handler in the past 1 year. Foot care [...] lisinopril 40 mg daily. He is seen lead handler in the past 1 year. Foot care [...] lisinopril 40 mg daily. He is seen lead handler in the past 1 year. Foot care [...] Future Test Test Name Order Date Hemoglobin [id number] 10/24/2024 Albumin/Creatinine Ratio,Urine-[id number] Lipid Panel-[id number] 10/24/2024 Comp. Metabolic Panel [id number] 2024 PSA (Serial Monitor)-[id number] 10/24/2024 Next Appt Details Follow Up: 6 Months, Reason: Provider Name:BABS SANABRIA , 05/01/2025 02:30:00 PM, [address] [place] [address], [phone], Progress Notes * Don MYLESDOB:1955 (69 yo M)Acc No.[id number]:10/24/2024 Progress Note Patient:?Don MYLES Provider:?BABS SANABRIA MD :1955???Age:69 Y???Sex:Male Zeke e:10/24/2024 Address:[address] [place] [address], [address] Subjective: * Chief Complaints: * ???Medicare [...] had ESRD Uncle had throat cancer sister [place] with diabetes. * Social History:?Tobacco Use:?Tobacco Use/Smoking?Are you a?nonsmoker ???Drugs/Alcohol:?Alcohol Screen (Audit-C)?Did you have a drink containing alcohol in the past year??No ?Points?0 ?Interpretation?Negative ?Do you smoke marijuana?: no. ?Do you drink alcohol?: no?.?Miscellaneous:?Exercise: none. ?Living with: alone. ?Marital status: . ?Occupation: Works full-time. * Medications:?TakingBlood Pre ssure - Kit as directed once a day FreeStyle Marleen 14 Day [place] - Device as directed four times a [...] a day Taking FreeStyle Marleen 14 Day [place] - Device as directed four times a [...] sensory exam intact.?FEMALE GENITOURINARY:?__.?MALE GENITOURINARY:?_declined a prostate exam.?PODIATRIC:?Normal.?Sports Medicine Physician? .?Diabetic Foot Exam: ?Appearance?normal.?Light Touch Sensation?normal.?Sense of [...] lisinopril 40 mg daily.? He is seen lead handler in the past 1 year.? Foot care [...] or malignant neoplasm of prostate?LAB: PSA (Serial Monitor)-[id number] (Ordered for 10/24/2024) * Procedure Codes:?3078F DIAST BP < 80 MM [id number] ANNUAL WELLNESS VST; PPS SUBSQT [id number] ELECTROCARDIOGRAM, [id number] ANNUAL ALCOHOL MISUSE SCREEN 15 [id number] ANNUAL DEPRESSION SCREENING 15 [id number] BODY MASS INDEX [id number] SCREEN DEPRESSION [id number] ELDER MALTX SCR DOC NEG NO F/U [id number] Pt scrn tbco id as non [id number] SYST BP < 140 MM CM8822G SYST BP LT 130 MM MM6369G SYST BP GE 130 - 139MM FDA3928 NORMAL BP READING DOC F/U NOT [id number] ADVNC CARE PLAN IN RCRD * Preventive Medicine:?Flu-2023 Shingrix- Done Pneumonia- Done Tdap. Covid- Done Eye exam- 2023 Colonoscopy- 2022 [facility]. * Follow Up:?6 Months * * Sign off status: Completed true * Provider:?BABS SANABRIA MD Date:?10/24 Generated for Maty griffin/Carissa/eTransmitting on:?12/06/2024 04:05 PM EDT History and Physical Notes * [...] Poor appetite or overeating: More than h [facility] the days Feeling bad about yourself o [...] Visit Type of Visit -: Subsequent Annual [facility] Visit Language or Communication barrier addressed -: [...] Normal Psychiatry Normal OROPHARYNX Normal SINUSES Normal Sports Medicine Physician Diabetic Foot Exam Appearance normal Light Touch Sensation normal Sense of Vibration normal Pulse: Posterior Tibial 2+ Pulse: Dorsal Pedis 2+ Hammer Toe normal Tinea Pedis negative Skin Changes negative
--- OUTSIDE RECORDS SUMMARY | 2024-12-06 16:05 | XMS_ITS ---
Author Organization [facility] Address [address] [facility] [address] [place] [address] Care Team Providers Care Paper Feeder Name Role Phone BABS SANABRIA Primary Care Provider [phone] REASON FOR VISIT Amlodipine refill Medications Medication SIG (Take, Route, Frequency, Duration) Notes Start Date End Date Status amLODIPine Besylate 10 MG 1 tablet Orall y Once a day for 90 days Active Encounters Encounter Location Date Provider Diagnosis [facility] [address] [facility] [address] [place] [address] 10/04/2024 BABS SANABRIA Plan Of Treatment Medication Medication Name Sig Start Date Stop Date Notes amLODIPine Besylate 10 MG 1 tablet Orall y Once a day for 90 days Next Appt Details Provider Name:BABS SANABRIA , 05/01/2025 02:30:00 PM, [address] [place] [address], [place], [address], Progress Notes * Don MYLESDOB:1955 (69 yo M)Acc No.[id number]:10/04/2024 Patient:?Don MYLES :1955???Age:69 Y???Sex:Male Address:[address], [address] , [place] [address] * Refills? Refill amLODIPine Besylate Tablet, 10 MG, Orally, 90, 1 tablet, Once a day, 90 days, Refills=3 * true * Date:? Generated for Markusi elias/Fapasqualeg/eTransmitting on:?12/06/2024 04:05 PM EDT
--- OUTSIDE RECORDS SUMMARY | 2024-12-06 16:06 | XMS_ITS | Patient Health Record ---
Author Organization [facility] Address [address] [place] [address] Care Team Providers Care Supervisor Electron Tube Processing Name Role Phone ELLY BRICE Primary Care Provider Fanny Pelaez Unavailable [phone] Allergies Allergen (clinical drug ingredient) Drug/Non Drug Allergy documented on EMR Reaction Allergy Type Onset Date Status dulaglutide Trulicity pancreatitis Drug Allergy Ac tive Reason For Referral Reason Evaluation and manag ement - Insulin teaching Diagnosis 1 Type 2 diabetes mani itus with unspecified complications (E11.8) Referral Organization [facility] Referring Provider First Name [...] days 08/19/2024 Active FreeStyle Marleen 14 Day [place] - as directed four times a day [...] 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) Type 2 diabetes mellitus with unspecified complications (E11.8) Active confirmed Problem Mixed hyperlipidemia (610084329) Mixed hyperlipidemia (E78.2) Active confirmed Problem Sleep apnea (97519588) Sleep apnea, unspecified (G47.30) Active confirmed Problem Glaucoma (53612428) Unspecified glaucoma (H40.9) Active confirmed Problem Essential hypertension (45354200) Essential (primary) hypertension (I10) Active confirmed Problem Obstructive uropathy (8527916) Other obstructive and reflux uropathy (N13.8) Active confirmed Vital Signs Heart Rate 64 /min 10/24/2024 Temperature 96.9 degrees Fahrenheit 10/24/2024 Blood pressure diastolic 78 mm Hg 10/24/2024 Oximetry 96 % 10/24/2024 Height 67 in 10/24/2024 Blood pressure systolic 118 mm Hg 10/24/2024 Weight 202.8 lbs 10/24/2024 BMI 31.76 kg/m2 10/24/2024 Encounters Encounter Location Date Provider Diagnosis [address] [place] [address] 01/15/2024 BRICEPEDRO LUIS SANABRIA Type 2 diabetes mellitus with unspecified complications E11.8 ; Acute pancreatitis without necrosis or infection, unspecified K85.90 ; Essential (primary) hypertension I10 ; Mixed hyperlipidemia E78.2 and Sleep apnea, unspecified G47.[address] [place] [address] 02/25/2024 Fanny Pelaez Type 2 diabetes mellitus with unspecified complications E11.[address] [place] [address] 04/29/2024 BABS SANABRIA Type 2 diabetes mellitus with unspecified complications E11.8 ; Essential (primary) hypertension I10 and Mixed hyperlipidemia E78.[address] [place] [address] 10/24/2024 BRICEPEDRO LUIS SANABRIA Type 2 diabetes mellitus with unspecified complications E11.8 ; Encounter for general adult medical examination without abnormal findings Z00.00 ; Essential (primary) hypertension I10 ; Mixed hyperlipidemia E78.2 ; Sleep apnea, unspecified G47.30 and Encounter for screening for malignant neoplasm of prostate Z12.[address] [place] [address] 01/12/2024 BABS SANABRIA Type 2 diabetes mellitus with unspecified complications E11.[address] [place] [address] 01/13/2024 BRICE GUL [facility] [address] [place] [address] 01/15/2024 BRICE GUL [facility] [address] [facility] [place] [address] 01/18/2024 BRICE GUL [facility] [address] [place] [address] 01/28/2024 [facility] [address] [place] [address] 02/01/2024 BRICE GUL [facility] [address] [place] [address] 02/07/2024 [facility] G[facility] [address] [place] [address] 02/10/2024 [facility] G[facility] [address] [place] [address] 02/18/2024 [facility] G[facility] [address] [place] [address] 02/22/2024 [facility] [address] [facility] [place] [address] 02/22/20[facility] [address] [facility] [place] [address] 02/23/2024 [facility] [address] [place] [address] 03/01/2024 BRICE GUL [facility] [address] [facility] [place] [address] 03/02/2024 BRICE GUL [facility] [address] [place] [address] 03/02/2024 [facility] [address] [place] [address] 03/10/2024 [facility] [address] [place] [address] 03/16/2024 [facility] [address] [place] [address] 05/20/2024 [facility] [address] [place] [address] 05/24/2024 [facility] [address] [facility] [place] [address] 06/10/2024 BRICE [facility] Type 2 diabetes mellitus with unspecified complications E11.8 [facility] [address] [facility] [place] [address] 06/10/2024 [facility] [address] [place] [address] 06/10/2024 [facility] [address] [place] [address] 07/11/2024 [facility] [address] [facility] [place] [address] 08/19/2024 [facility] [address] [facility] [place] [address] 08/19/2024 BRICE GUL Postnasal drip R09.8 2 [facility] [address] [facility] [place] [address] 08/26/2024 [facility] [address] [place] [address] 08/30/2024 BRICE [facility] [address] [facility] [place] [address] 09/27/2024 [facility] [address] [place] [address] 10/04/2024 [facility] [address] [facility] [place] [address] 10/21/2024 BRICE GUL Assessments Encounter Date Diagnosis (ICD Code) Assessment Notes Treatment Notes Treatment Clinical Notes Section Notes 01/12/2024 Type 2 diabetes mellitus with unspecified complications (ICD-10 - E11.8) 01/15/2024 Type 2 diabetes mellitus with unspecified complications (ICD-10 - E11.8) Mr. yMles is 68 years old pleasant gentleman with DM type II on Trulicity, hypertension, hyperlipidemia, sleep apnea is here today for follow-up after a visit to [facility]. He had CT abdomen [...] today for follow-up after a visit to [facility]. He had CT abdomen [...] seeing a nurse practitioner Jackie Santacruz at [facility] and has also seen a dexigraph operator and his home blood sugar numbers are improving. He is currently on long-acting insulin 34 units along with other medications as mentioned above. He has seen an shoe stitcher odd for the past year. Foot care discussed. check A1c. Hypertension. Blood pressure well controlled on current regimen. Hyperlipidemia. Continue Simvastatin 20 MG once a day. Screening blood work before next appointment. General health concerns discussed with patient. Scribe services used to formulate this note under HIPAA compliance and under [place] law mandated for scribe services. Patient aware [...] lisinopril 40 mg daily. He is seen shoe stitcher odd in the past 1 year. Foot care [...] lisinopril 40 mg daily. He is seen shoe stitcher odd in the past 1 year. Foot care [...] lisinopril 40 mg daily. He is seen shoe stitcher odd in the past 1 year. Foot care [...] Gracie Myles is his healthcare proxy. 01/15/2024 Essential (primary) hypertension (ICD-10 - I10) Mr. Myles is 68 years old pleasant gentleman with DM type II on Trulicity, hypertension, hyperlipidemia, sleep apnea is here today for follow-up after a visit to [facility]. He had CT abdomen [...] seeing a nurse practitioner Jackie Santacruz at [facility] and has also seen a dexigraph operator and his home blood sugar numbers are improving. He is currently on long-acting insulin 34 units along with other medications as mentioned above. He has seen an shoe stitcher odd for the past year. Foot care discussed. check A1c. Hypertension. Blood pressure well controlled on current regimen. Hyperlipidemia. Continue Simvastatin 20 MG once a day. Screening blood work before next appointment. General health concerns discussed with patient. Scribe services used to formulate this note under HIPAA compliance and under [place] law mandated for scribe services. Patient aware [...] today for follow-up after a visit to [facility]. He had CT abdomen [...] seeing a nurse practitioner Jackie Santacruz at [facility] and has also seen a dexigraph operator and his home blood sugar numbers are improving. He is currently on long-acting insulin 34 units along with other medications as mentioned above. He has seen an shoe stitcher odd for the past year. Foot care discussed. check A1c. Hypertension. Blood pressure well controlled on current regimen. Hyperlipidemia. Continue Simvastatin 20 MG once a day. Screening blood work before next appointment. General health concerns discussed with patient. Scribe services used to formulate this note under HIPAA compliance and under [place] law mandated for scribe services. Patient aware [...] lisinopril 40 mg daily. He is seen shoe stitcher odd in the past 1 year. Foot care [...] Gracie Myles is his healthcare proxy. 10/24/2024 Sleep apnea, [...] lisinopril 40 mg daily. He is seen shoe stitcher odd in the past 1 year. Foot care [...] Gracie Myles is his healthcare proxy. 01/15/2024 Sleep apnea, unspecified (ICD-10 - G47.30) Mr. Myles is 68 years old pleasant gentleman with DM type II on Trulicity, hypertension, hyperlipidemia, sleep apnea is here today for follow-up after a visit to [facility]. He had CT abdomen [...] CPAP machine and no daytime sleepiness. 10/24/2024 Encounter for screening for malignant neoplasm [...] lisinopril 40 mg daily. He is seen shoe stitcher odd in the past 1 year. Foot care [...] SPECIFIC ANTIGEN 07/24/2022 MICROSCOPIC, URINE 07/24/2022 Albumin/Creatinine Ratio,[id number] Comp. Metabolic Panel [id number] 2023 Hemoglobin A1c 01/12/2024 Future Test Test Name Order Date Hemoglobin [id number] 10/24/2024 Albumin/Creatinine Ratio,Urine-[id number] Lipid Panel-[id number] 10/24/2024 Comp. Metabolic Panel [id number] 2024 PSA (Serial Monitor)-[id number] 10/24/2024 Next Appt Details Provider Name:BABS SANABRIA , 05/01/2025 02:30:00 PM, [address] [place] [address], [phone], Insurance Providers Payer Name Payer Address Payer Phone Subscriber Number Group Number Insured Name Patient Relationship to Insured Coverage Start Date Coverage End Date [employer] [address] [address] [place] [address] [id number] Don Myles Self - patient is the insured Medical (General) History Medical History History ICD Code Hypertension Hyperlipidemia DM type II he sees Jackie mart at [place] Glaucoma cataracts Surgical History Surgery Date(Month/Year) Neck surgery by Dr Tessie chirinos laser eye surgery Hospitalization History Reason Date(Month/Year) surgery
[2024-12-12 07:59] LABS: Estimated Average Glucose 186 mg/dL; Hemoglobin A1C 265.3629 umol/L; Hemoglobin A1c % 8.1 % (<6.0)
[2024-12-12 08:15] LABS: Anion Gap 12 (12-20); Blood Urea Nitrogen 17 mg/dL (9-16); Calcium 9.7 mg/dL (8.4-10.2); Carbon Dioxide 29 mmol/L (22-29); Chloride 104 mmol/L (96-108); Estimated Glomerular Filt Rate > 60; Glucose Random 114 mg/dL (60-115); Potassium 3.8 mmol/L (3.3-5.1); Sodium 141 mmol/L (135-145)
[2024-12-29 14:02] VITALS: BMI 30.4
[2025-01-03] VITALS (14 sets, daily range): BP systolic 100–134; BP diastolic 57–88; PULSE 51–84; RESP 12–18; TEMP 36.1–36.6; O2SAT 91–96; BMI 30.5
[2025-01-03 12:25] LABS: Glucose, Whole Blood 177 mg/dL (60-115)
[2025-01-03] MEDS: Lactated Ringers 1,000 ML 50 ML IVCONT (12:32)
--- NOTE | 2025-01-03 12:35 | W.PM.OPN ---
Operative Note Operative Note Date of Service: 01/03/25 Narrative: PreOperative Diagnosis:? ? Right hydrocele Post Operative Diagnosis: Right hydrocele Procedure: Right hydrocelectomy, excision of hydrocele sac Surgeon:?Dr Marilyn Astudillo Anesthesia:? General Procedure: After informed consent was verified the patient was brought to the operating room and placed in a supine position.? Anesthesia was performed per protocol. The patient was prepped and draped in the usual sterile fashion. Safety pause time-out was performed. Antibiotics confirmed. A marker was used to shubham the median raphe. Attention was taken to the right hemiscrotum A horizontal incision was made through the skin with a 15 blade knife, cautery was used to incise the dartos fascia, the plane between the dartos fascia and the tunical vaginalis was developed with blunt dissection. the testicle is delivered into the operative field. The gubernaclar attachments are taken down with electrocautery. The tunica vaginalis was opened with sharp dissection vertically in the midline, the hydrocele fluid is drained and suctioned, the hydrocele fluid was clear yellow. The hydrocele sac was opened in the midline a portion of the sac was sent to pathology, the tunica vaginalis was wrapped posteriorly and the edges were oversewn with 3-0 chromic. Appendage testis cauterized and sent, scrotal jovan sent. Cautery was used for hemostasis. The dartos fascia was closed with running locking 3-0 chromic and the skin was closed with interrupted 3-0 chromic there was good hemostasis noted. The patient tolerated the procedure well and was transferred to the recovery area upon completion. Complications: None EBL: minimal (<5 mL) Drains: None
--- NOTE | 2025-01-03 12:35 | MHC.SHP ---
Pre-Procedural Eval Section A - 24 Hr Update-Section A only Date of Service: 01/03/25 The patient is an INPATIENT: No The patient has been examined within 24 hours of the surgical procedure. The History & Physical has been completed within 30 days and I have reviewed it.: Yes Section B - Complete if H&P > 30 days Chief Complaint: Hydrocele, unspecified, right Allergies: Allergies Allergy/AdvReac Type Severity Reaction Status Date / Time No Known Allergies Allergy Verified 12/27/24 15:50 Plan Diagnosis/Plan: Unchanged I have reviewed the history and physical and performed a pertinent physical examination on my patient. No changes have occurred unless specified. Right Hydrocele repair. Risks discussed include but not limited to infection, bleeding, bruising, swelling, recurrence of hydrocele fluid. Time Spent With Patient Time: Total time managing care of this patient today ____ minutes.
--- NOTE | 2025-01-03 12:46 | HO.ANESPROP2 ---
HPI - Anesthesia Eval Consult details Narrative: for right hydrocele repair PMFSH Active Problems Active Problems: All Active Problems Hydrocele, right (Acute) Scrotal swelling (Acute) BPH loc w urin obs/LUTS (Acute) Nocturia more than twice per night (Acute) Diabetes mellitus, type II (Acute) Tubular adenoma (Acute) Diverticulosis (Acute) Internal hemorrhoids without complication (Acute) Past Medical History Medical History (Updated 01/03/25 @ 12:05 by Diana Lemus RN) Sleep apnea BPH (benign prostatic hyperplasia) Hx of cataract Tubular adenoma Diverticulosis Internal hemorrhoids without complication Glaucoma Diabetes mellitus, type II Hyperlipidemia HTN (hypertension) Family History Family History Mother HTN (hypertension) High cholesterol Diabetes Pacemaker Family history of problems with anesthesia: No Surgical History Surgical History (Updated 01/03/25 @ 12:03 by Diana Lemus RN) Hx of tonsillectomy H/O neck surgery Hx of colonoscopy History of surgical procedure on eye proper using laser History of Problems with Anesthesia: No Social History Social History Household Members: Significant Other Alcohol intake: never Patient Tobacco Use Status: Never used Tobacco Use of substances other than those prescribed or required for medical reasons: No Are you DNR?: No Advance Directives: No Advance Directives Information Provided: Yes Poor oral hygiene: No Meds Allergies Allergy/AdvReac Type Severity Reaction Status Date / Time No Known Allergies Allergy Verified 12/27/24 15:50 Active Medications: Current Medications Lactated Ringer's (Lr) 1,000 mls @ 50 mls/hr IVCONT .Q20H SUREKHA Last Admin: 01/03/25 12:32 Dose: 50 mls/hr Home Medications ?Medication ?Instructions ?Recorded ?Confirmed ?Last Taken ?Type amlodipine 10 mg tablet 10 mg PO DAILY 10/06/22 12/29/24 Unknown History chlorthalidone 25 mg tablet 25 mg PO DAILY 10/06/22 12/29/24 Unknown History lisinopril 40 mg tablet 40 mg PO DAILY 10/06/22 12/29/24 Unknown History metformin 1,000 mg tablet 1,000 mg PO BID 10/06/22 12/29/24 Unknown History simvastatin 20 mg tablet 20 mg PO BEDTIME 10/06/22 12/29/24 Unknown History fluticasone propionate 50 1 spray intranasal DAILY 01/27/24 12/29/24 Unknown History mcg/actuation nasal spray,suspension timolol maleate 0.5 % eye drops 1 drp ophthalmic (eye) DAILY 01/27/24 12/29/24 Unknown History empagliflozin 10 mg tablet 20 mg PO DAILY 12/27/24 12/29/24 12/30/24 History (Jardiance) Exam Height,Weight and Vital Signs: Height 5 ft 8 in Weight 90.9 kg Last Vital Signs Temp 97.7 F 01/03/25 12:15 Pulse 61 01/03/25 12:15 Resp 16 01/03/25 12:15 BP 117/67 01/03/25 12:15 Pulse Ox 96 01/03/25 12:15 O2 Del Method Room Air 01/03/25 12:15 Pertinent Lab Results Pertinent Lab Results: Laboratory Tests 12/12/24 01/03/25 07:17 12:22 Sodium 141 Potassium 3.8 Chloride 104 Carbon Dioxide 29 Anion Gap 12 BUN 17 H Creatinine 0.93 Estim Creat Clear Calc TNP Estimated GFR > 60 POC Glucose 177 H Random Glucose 114 Estimat Average Glucose 186 Hemoglobin A1c % 8.1 H Calcium 9.7 D Airway Mallampati Class: II TM Dist: >3cm Neck ROM: Full Loose/Missing/Broken Teeth: Yes and Upper Heart: ok Lungs: ok Assessment and Plan Assessment Anesthesia Assessment: Anesthesia Plan Discussed and Chart Reviewed Final Anesthetic Review Family History of Problems with Anesthesia: No History of Problems with Anesthesia: No NPO: Yes ASA Class: III Final Preanesthetic Review: No Changes in Pt Med Stat, Meds/Allgs Chart Reviewed, Consent Obtained/Reviewed and Anes Risks/Benef Reviewed Patient Risk: Intermediate Procedure Risk: Low Anesthetic Plan Anesthetic Plan: GA and Agree w/ Assess. and Plan Disposition: Standard PACU
[2025-01-03] MEDS: ceFAZolin Sodium/Dextrose,Iso 2 GM/50 ML PIGGYBACK IV (12:59)
[2025-01-03] MEDS: fentaNYL citrate/PF 100 MCG/2 ML VIAL 50 MCG IVPUSH ×2 (15:45→15:52)
[2025-01-03] MEDS: oxyCODONE HCl Immed Release 5 MG TABLET PO (16:20)
[2025-01-03] MEDS: Acetaminophen 325 MG TABLET 975 MG PO (17:38)
== END 2025-01-03 17:50 | disposition home or self-care (01) ==
PROVIDERS: PCP Hospitalist; Visit Provider Urology
PROC: (CPT 55060; principal; 2025-01-03 13:20)
DX: N43.3 Hydrocele, unspecified (principal); N50.89 Other specified disorders of the male genital organs; I10 Essential (primary) hypertension; E78.5 Hyperlipidemia, unspecified; E11.9 Type 2 diabetes mellitus without complications; H40.9 Unspecified glaucoma; Z79.84 Long term (current) use of oral hypoglycemic drugs; Z79.899 Other long term (current) drug therapy; Z98.890 Other specified postprocedural states
CPT/HCPCS: 55040; 36415; 80048; 82947; 83036; 88112; 88173; 88302; 88304; 88305; J0690; J2003; J2704; J2795; J3010

== ENCOUNTER → 2025-01-03 11:48 | Outpatient (BNV) | payer MEDICARE, OTHER, SELFPAY | PROVIDERS: PCP Hospitalist; Visit Provider Urology | DX: N43.3 Hydrocele, unspecified (principal) | CPT/HCPCS: 55040 ==

== ENCOUNTER → 2025-01-16 08:48 | Outpatient (BNVA) | payer MEDICARE, OTHER, SELFPAY | PROVIDERS: PCP Hospitalist; Visit Provider Urology | DX: Z13.89 Encounter for screening for other disorder (principal) ==

== ENCOUNTER 2025-02-08 10:15 | Outpatient (AMB) | payer MEDICARE, OTHER, SELFPAY ==
--- NOTE | 2025-02-08 07:34 | A.OFFVIS_ITS ---
Vital Signs 02/08/25 10:18 Height 5 ft 8 in Weight 198 lb 6.656 oz BMI 30.2 BP 100/60 Blood Pressure Location Rt brachial Position Sitting Pulse Source Pulse Oximeter Oxygen Delivery Method Room Air Intake Visit Reasons: T2DM Intake Note: Patient presents today for a follow-up for Type 2 Diabetes Mellitus: Last Diabetic eye exam was on: 02/2024, had laser surgery for cataracts Last Podiatry exam was on: Does not see a Spinning Frame Fixer Most recent HbA1c: 8.1%, 12/12/2024 Random Glucose- 172 mg/dL, Today. Oyster Unloader Required: No Accompanied by: Self / Same As Patient Allergies No Known Allergies Allergy (Verified 12/27/24 15:50) Medication List - Last Reconciled 02/08/25 by Jackie Santacruz NP amlodipine 10 mg PO DAILY cephalexin 500 mg PO BID 5 days chlorthalidone 25 mg PO DAILY empagliflozin (Jardiance) 20 mg PO DAILY fluticasone propionate 50 mcg/actuation 1 spray intranasal DAILY FreeStyle Marleen 3 Sensor (blood-glucose sensor) every 15 days for continous glucose readings NS insulin lispro (Humalog KwikPen (U-100) Insulin) 10 units (0.1 mL) subcut DAILY 90 days Lantus Solostar U-100 Insulin (insulin glargine) 38 units (0.38 mL) subcut QPM 90 days NS lisinopril 40 mg PO DAILY metformin 1,000 mg PO BID oxycodone-acetaminophen 5-325 mg (Percocet) 1 tab PO Q6-8H PRN pen needle, diabetic As directed bid simvastatin 20 mg PO BEDTIME tamsulosin (Flomax) 0.4 mg PO BEDTIME timolol maleate 0.5% 1 drp ophthalmic (eye) DAILY HPI Comments Details: 69 YO male who is seen in f/u for T2DM. He was seen for initial consult in March. At that time he was started on low dose basal insulin. He was last seen by myself in November and previously by Evette VILLASENOR who increased his Lantus to 30 units and he completed a program of diabetes education. Most recent A1c 8.1% on 12/12/24 %,11/15/2024 7.7%, 8.9% 04/06/24. He had repair of a hydrocele 6 weeks ago and has been inactive. He has noticed his numbers have increased and did increase his insulin from 30 units to 34 units. Initially diagnosed with T2DM diagnosed at 35. Was diagnosed after polyuria, dizziness. Was initially started on treatment with metformin and actos. Had recent episode of pancreatitis in January 2024 Was on Trulicity which was very effective. Has been off since hospitalization. Current regimen: Lantus 34 units jardiance 25 mg glimipiride 4mg with breakfast metformin 1000mg twice daily freestyle average glucose: 182 14 day continuous glucose monitor report reviewed Glucose Managment indicator 7.7 % Days with CGM data 91 % TIme in ranges: 12 % very high (above 250) 32 % high ?(181-250) 56 % in range ?(70-180] 0 % low (69-55) 0 % ?very low (below 54) Interpretation significant postprandial elevation after lunch Treats lows with hasn't had any. Family history of T2DM in mother uncle type 1 (not certain) cousin on insulin. Has eyes checked yearly, last eye exam 10/31, denies retinopathy Has elevated pressures and cataract extraction glaucoma surgery Denies neuropathy, was seeing podiatry in the past negative nephropathy, on RAMILA. microalbumin: 08/0110/22/2024 eGFR>60 HLD on statin. Last LDL 41 as measured on 10/22/24 Denies CAD. Denies symptoms of chest pain, dyspnea or claudication. Diet: trys to balance, loves veg/chicken/fish Weight: Has been stable Recently completed diabetes education [facility] Medical History (Updated 02/08/25 @ 11:03 by Jackie Santacruz NP) Pancreatitis Sleep apnea BPH (benign prostatic hyperplasia) Hx of cataract Tubular adenoma Diverticulosis Internal hemorrhoids without complication Glaucoma Diabetes mellitus, type II Hyperlipidemia HTN (hypertension) Surgical History (Updated 01/03/25 @ 12:03 by Diana Lemus RN) Hx of tonsillectomy H/O neck surgery Hx of colonoscopy History of surgical procedure on eye proper using laser Family History Mother HTN (hypertension) High cholesterol Diabetes Pacemaker Social History Household Members: Significant Other Alcohol intake: never Patient Tobacco Use Status: Never used Tobacco Physical Exam Vital Signs: Last Vital Signs BP 100/60 02/08/25 10:18 Oxygen Delivery Method Room Air 02/08/25 10:18 BMI result Body Mass Index 30.2 Const Other: Absence of Cushingoid features. Absence of acromegalic features. Neck exam reveals nl size thyroid about 15 gms. No thyroid nodules palpable. Heart S1 S2, Reg R/R. No M/R G. Skin exam reveals absence of vitiligo or acanthosis nig ricans. No edema Visual exam of foot performed. No ulcerations or open lesions. No inter digit maceration or fissuring. No onychomycosis, no callouses. Sensation intact to monofilament exam. Vibratory sensation is normal with 128 Hz tuning fork. Pulses positive Office Procedures Glucose Monitoring Details Details: see [facility] [id number] - Glucose monitoring, continuous-physician I&R Procedure code (CPT) selection complete Results Reviewed Results Reviewed: Laboratory Last Values Glucose (Clinic) 172 mg/dL (60-115) H 02/08/25 10:26 Assessment & Plan Assessment & Plan (1) Diabetes mellitus, type II: Code(s): E11.9 - Type 2 diabetes mellitus without complications Category: Medical Plan: 69-year-old type 2 diabetic with no known micro/macrovascular complications with increasing glucose. He has been inactive for the last 6 weeks recovering from a hydrocele surgery. New regimen: Lantus 38 units Stop glimepiride Add short-acting insulin 10 units with lunch Metformin 1000 mg b.i.d. Jardiance 25 mg Reviewed basics of short-acting insulin onset of action and duration. Advised to always carry a sugar source The patient had an opportunity to ask questions regarding treatment plan. The patient expressed understanding and agreement with the above treatment plan. The patient is aware they should contact our office by phone for worsening glucose readings or for any low blood sugars which may warrant a change in diabetes medication. Compliance is encouraged with medications and any followup testing/consults which may have been ordered. Orders: Orders AMB Glucose Monitoring Today E11.9 - Type 2 diabetes mellitus without complications Medications: New insulin lispro (Humalog KwikPen (U-100) Insulin) with lunch 10 units (0.1 mL) subcut DAILY 9 mL 3RF 90 days Changed From pen needle, diabetic (BD Ultra-Fine Sharon Pen Needle) As directed once daily 50 ea 3RF E11.9 - Type 2 diabetes mellitus without complications To pen needle, diabetic As directed bid 200 ea 3RF E11.9 - Type 2 diabetes mellitus without complications From Lantus Solostar U-100 Insulin (insulin glargine) 30 units (0.3 mL) subcut QPM 90 days 27 mL 3RF NS E11.9 - Type 2 diabetes mellitus without complications To Lantus Solostar U-100 Insulin (insulin glargine) 38 units (0.38 mL) subcut QPM 36 mL 3RF 90 days NS E11.9 - Type 2 diabetes mellitus without complications Refilled pen needle, diabetic As directed bid 200 ea 3RF E11.9 - Type 2 diabetes mellitus without complications Discontinued glimepiride Discontinued Reason: Doctor's Order 4mg am 2mg supper orally daily; 30 days 90 tabs 2RF Patient Instructions: The patient was counseled to achieve a target A1C of 7% (154 avg). Fasting blood sugars should be 90-130 in the morning and less than 180 two hours after meals. Reviewed the relationship between poor diabetic control and the development of complications. Check your feet daily looking for any signs of infection, drainage, redness, ulceration and seek medical attention if this occurs. Break in shoes gradually and do not wear open-toed shoes or walk stocking footed or barefooted. Coding Level of Care Code Est Pt Level 4 (51878) Complex EM visit Add On G2211 Diagnoses Diabetes mellitus, type II E11.9 CPT Codes Details - CPT: 86264 - Glucose monitoring, continuous-physician I&R ([id number]) Time Spent (min) 30 Comment Time spent reviewing labs/provider notes, face to face, chart doc
[2025-02-08 10:18] VITALS: BP 100/60; BMI 30.2
[2025-02-08 10:30] LABS: Glucose, Whole Blood 172 mg/dL (60-115)
--- OUTSIDE RECORDS SUMMARY | 2025-02-08 10:48 | XMS_ITS | Patient Health Record ---
Author Organization [facility] Address [address] [place] [address] Care Team Providers Care Tuck Pointer Name Role Phone ELLY BRICE Primary Care Provider Fanny Pelaez Unavailable [phone] Allergies Allergen (clinical drug ingredient) Drug/Non Drug Allergy documented on EMR Reaction Allergy Type Onset Date Status dulaglutide Trulicity pancreatitis Drug Allergy Ac tive Reason For Referral Reason Evaluation and manag ement - Insulin teaching Diagnosis 1 Type 2 diabetes mani itus with unspecified complications (E11.8) Referral Organization [facility] Referring Provider First Name Fanny Referring Provider Last Name Benigno Referred Provider Specialty Other Medica l Care General Notes Referral faxed to Rajinder lockhart - Dept will call patient for scheduling.Case Latraya 02/25/2024 02:59:45 PM > Referral Priority Routine Medications Medication SIG (Take, Route, Frequency, Duration) Notes Start Date End Date Status Jardiance 10 MG 1 tablet Orally Once a day; Duration: 90 days 08/19/2024 Active FreeStyle Marleen 14 Day [place] - as directed four times a day; Duration: 30 days 07/30/2022 Active metFORMIN HCl 1000 MG 1 tablet with a me al Orally twice a day; Duration: 90 days Active Fluticasone Propionate 50 MCG/ACT 1 spray in each nostril Nasally Once a day; Duration: 90 days 09/01/2023 Active amLODIPine Besylate 10 MG 1 tablet Orall y Once a day; Duration: 90 days Active Glimepiride 2 MG TAKE 1 TABLET DAILY WITH BREAKFAST OR FIRST MAIN MEAL OF THE DAY; Duration: 90 days Active Tresiba FlexTouch 100 UNIT/ML as directed Subcutaneous Not-Taking Morphine Sulfate 15 MG 1 tablet as neede d Orally every 4 hrs; Duration: 5 days 01/15/2024 Active Latanoprost 0.005 % 1 drop into affected eye in the evening Ophthalmic Once a day Not-Taking Ondansetron 4 MG 1 tablet on the tong ue and allow to dissolve Orally Once a day; Duration: 10 days Active Lantus 100 UNIT/ML as directed take 15 units Subcutaneous at bedtime; Duration: 30 days 02/25/2024 Not-Taking Lisinopril 40 MG 1 tablet Orally Once a day; Duration: 90 days Active Lantus 100 UNIT/ML 30 units Subcutaneou s Daily; Duration: 30 days 08/19/2024 Active Chlorthalidone 25 MG 1/2 tablet Orally o nce a day; Duration: 90 days Active Simvastatin 20 MG 1 tablet in the even ing Orally Once a day; Duration: 90 days Active FreeStyle Marleen 2 Sensor - CHANGE EVERY 14 DAYS; Duration: 30 days Active Blood Pressure - as directed once a d ay; Duration: 30 days 03/01/2021 Active Immunizations Vaccine Route [...] 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 2 diabetes mellitus (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) Type 2 diabetes mellitus with unspecified complications (E11.8) Active confirmed Problem Mixed hyperlipidemia (130807750) Mixed hyperlipidemia (E78.2) Active confirmed Problem Sleep apnea (49057034) Sleep apnea, unspecified (G47.30) Active confirmed Problem Glaucoma (62980466) Unspecified glaucoma (H40.9) Active confirmed Problem Essential hypertension (95397710) Essential (primary) hypertension (I10) Active confirmed Problem Obstructive uropathy (8490415) Other obstructive and reflux uropathy (N13.8) Active confirmed Vital Signs Heart Rate 64 /min 10/24/2024 Temperature 96.9 degrees Fahrenheit 10/24/2024 Blood pressure diastolic 78 mm Hg 10/24/2024 Oximetry 96 % 10/24/2024 Height 67 in 10/24/2024 Blood pressure systolic 118 mm Hg 10/24/2024 Weight 202.8 lbs 10/24/2024 BMI 31.76 kg/m2 10/24/2024 Encounters Encounter Location Date Provider Diagnosis [address] [place] [address] 02/25/2024 Fanny Pelaez Type 2 diabetes mellitus with unspecified complications E11.[address] [place] [address] 04/29/2024 BABS BETTENCOURT Type 2 diabetes mellitus with unspecified complications E11.8 ; Essential (primary) hypertension I10 and Mixed hyperlipidemia E78.[address] [place] [address] 10/24/2024 BABS SANABRIA Type 2 diabetes mellitus with unspecified complications E11.8 ; Encounter for general adult medical examination without abnormal findings Z00.00 ; Essential (primary) hypertension I10 ; Mixed hyperlipidemia E78.2 ; Sleep apnea, unspecified G47.30 and Encounter for screening for malignant neoplasm of prostate Z12.5 [facility] [address] [place] [address] 02/10/[address] [place] [address] 02/18/[address] [place] [address] 02/22/[address] [place] [address] 02/22/2024 [facility] [address] [place] [address] 02/23/2024 [facility] [address] [place] [address] 03/01/2024 [facility] [address] [place] [address] 03/02/2024 [facility] [address] [place] [address] 03/02/2024 [facility] [address] [facility] [place] [address] 03/10/2024 [facility] [address] [facility] [place] [address] 03/16/2024 [facility] [address] [facility] [place] [address] 05/20/2024 [facility] [address] [facility] [place] [address] 05/24/2024 [facility] [address] [facility] [place] [address] 06/10/2024 [facility] Type 2 diabetes mellitus with unspecified complications E11.[address] [place] [address] PC [address] [facility] [place] [address] 06/10/2024 [facility] [address] [facility] [place] [address] 06/10/2024 [facility] [address] [facility] [place] [address] 07/11/2024 [facility] [address] [facility] [place] [address] 08/19/2024 [facility] [address] [facility] [place] [address] 08/19/2024 BABS SANABRIA Postnasal drip R09.[address] [place] [address] 08/26/2024 BRICE GUL [address] [place] [address] 08/30/[address] [place] [address] 09/27/[address] [address] 10/04/[address] [address] 10/21/2024 BABS SANABRIA Assessments Encounter Date Diagnosis (ICD Code) Assessment Notes Treatment Notes Treatment Clinical Notes Section Notes 02/25/2024 Type 2 diabetes mellitus with unspecified [...] [facility] Center and has also seen a museum educator and his home blood sugar numbers are improving. He is currently on long-acting insulin 34 units along with other medications as mentioned above. He has seen an nursing instructor for the past year. Foot care discussed. check A1c. Hypertension. Blood pressure well controlled on current regimen. Hyperlipidemia. Continue Simvastatin 20 MG once a day. Screening blood work before next appointment. General health concerns discussed with patient. Scribe services used to formulate this note under HIPAA compliance and under [place] law mandated for scribe services. Patient aware of service. Verbal consent and written consent taken from the patient. Patient understands and verbalizes understanding of the scribes services and all questions answered regarding scribes services. Patient agrees to use of scribes services. 06/10/2024 Type 2 diabetes mellitus with unspecified complications (ICD-10 - E11.8) 10/24/2024 Type 2 diabetes mellitus with unspecified [...] lisinopril 40 mg daily. He is seen nursing instructor in the past 1 year. Foot care [...] and Gracie Myles is his healthcare proxy. 08/19/2024 Postnasal drip (ICD-10 - R09.82) 10/24/2024 Encounter for general adult medical examination [...] lisinopril 40 mg daily. He is seen nursing instructor in the past 1 year. Foot care [...] Medical Center and has also seen a museum educator and his home blood sugar numbers are improving. He is currently on long-acting insulin 34 units along with other medications as mentioned above. He has seen an nursing instructor for the past year. Foot care discussed. check A1c. Hypertension. Blood pressure well controlled on current regimen. Hyperlipidemia. Continue Simvastatin 20 MG once a day. Screening blood work before next appointment. General health concerns discussed with patient. Scribe services used to formulate this note under HIPAA compliance and under [place] law mandated for scribe services. Patient aware [...] lisinopril 40 mg daily. He is seen nursing instructor in the past 1 year. Foot care [...] Medical Center and has also seen a museum educator and his home blood sugar numbers are improving. He is currently on long-acting insulin 34 units along with other medications as mentioned above. He has seen an nursing instructor for the past year. Foot care discussed. check A1c. Hypertension. Blood pressure well controlled on current regimen. Hyperlipidemia. Continue Simvastatin 20 MG once a day. Screening blood work before next appointment. General health concerns discussed with patient. Scribe services used to formulate this note under HIPAA compliance and under [place] law mandated for scribe services. Patient aware [...] lisinopril 40 mg daily. He is seen nursing instructor in the past 1 year. Foot care [...] lisinopril 40 mg daily. He is seen nursing instructor in the past 1 year. Foot care [...] lisinopril 40 mg daily. He is seen nursing instructor in the past 1 year. Foot care [...] SPECIFIC ANTIGEN 07/24/2022 MICROSCOPIC, URINE 07/24/2022 Albumin/Creatinine Ratio,Urine-[id number] Comp. Metabolic Panel [id number] 2023 Hemoglobin A1c 01/12/2024 Future Test Test Name Order Date Hemoglobin [id number] 10/24/2024 Albumin/Creatinine Ratio,Urine-[id number] Lipid Panel-[id number] 10/24/2024 Comp. Metabolic Panel [id number] 2024 PSA (Serial Monitor)-[id number] 10/24/2024 Next Appt Details Provider Name:BABS SANABRIA , 05/01/2025 02:30:00 PM, [address] [place] [address], [address], Insurance Providers Payer Name Payer Address Payer Phone Subscriber Number Group Number Insured Name Patient Relationship to Insured Coverage Start Date Coverage End Date Medicare [address] [place] [phone] [id number] Don Myles Self - patient is the insured [employer] [address] [address] [place] [address] [id number] Don Myles Self - patient is the insured Medical (General) History Medical History History ICD Code Hypertension Hyperlipidemia DM type II he sees Jackie mart at [place] Glaucoma cataracts Surgical History Surgery Date(Month/Year) Neck surgery by Dr Tessie chirinos laser eye surgery Hospitalization History Reason Date(Month/Year) surgery
== END 2025-02-08 10:47 | disposition home or self-care (01) ==
LOC: HO.ENCR 10:16
PROVIDERS: PCP Hospitalist; Visit Provider Nurse Practitioner Adult Health
DX: E11.9 Type 2 diabetes mellitus without complications (principal); Z79.4 Long term (current) use of insulin
CPT/HCPCS: 95251; 99214

== ENCOUNTER → 2025-02-08 10:15 | Outpatient (BNVA) | payer MEDICARE, OTHER, SELFPAY | PROVIDERS: PCP Hospitalist; Visit Provider Nurse Practitioner Adult Health | DX: E11.9 Type 2 diabetes mellitus without complications (principal); Z79.4 Long term (current) use of insulin; Z79.84 Long term (current) use of oral hypoglycemic drugs | CPT/HCPCS: 82947; 99212 ==

== ENCOUNTER 2025-02-17 12:58 | Outpatient (AMB) | payer MEDICARE, OTHER, SELFPAY ==
--- NOTE | 2025-02-16 20:12 | A.OFFVIS_ITS ---
Intake Visit Reasons: Hydrocele Repair follow up Intake Note: Patient is present for a hydrocele repair follow up Urology Medication:NONE Antibiotic Allergy:NONE Blood Thinner:NONE PVR:30ml Submarine Worker Required: No Accompanied by: Self / Same As Patient Allergies No Known Allergies Allergy (Verified 02/17/25 13:13) Medication List - Last Reconciled 02/17/25 by Marilyn Astudillo MD amlodipine 10 mg PO DAILY chlorthalidone 25 mg PO DAILY empagliflozin (Jardiance) 20 mg PO DAILY fluticasone propionate 50 mcg/actuation 1 spray intranasal DAILY FreeStyle Marleen 3 Sensor (blood-glucose sensor) every 15 days for continous glucose readings NS insulin lispro (Humalog KwikPen (U-100) Insulin) 10 units (0.1 mL) subcut DAILY 90 days Lantus Solostar U-100 Insulin (insulin glargine) 38 units (0.38 mL) subcut QPM 90 days NS lisinopril 40 mg PO DAILY metformin 1,000 mg PO BID pen needle, diabetic As directed bid simvastatin 20 mg PO BEDTIME tamsulosin (Flomax) 0.4 mg PO DAILY timolol maleate 0.5% 1 drp ophthalmic (eye) DAILY HPI Comments Details: 02/17/25--status post right hydrocelectomy 01/03/2025 12/05/24--discussed renal and scrotal ultrasound results Right hydrocele. We will schedule outpatient hydrocelectomy. Right kidney possible 5 mm stone. The patient had a CAT scan 2023 no nephrolithiasis was noted at that time we will continue to monitor kidneys. Patient instructed to increase fluids 09/12/24--Don is a 69-year-old male who is here for evaluation he has concerns regarding right scrotal swelling. He denies pain. He also complains of getting up frequently at nighttime. Denies dysuria. AUA symptom score 15/35. Patient was unable to give urine sample bladder scan PVR 111 mL. Review of chart PSA-01/09/24--2.15 ng/mL. I have discussed trial of tamsulosin 0.4 mg at bedtime. Discussed side effects include retrograde ejaculation. Will check ultrasound urinary tract including scrotum. Examination right testicular swelling suggestive of right hydrocele. Testicles nontender. [facility] Medical History Pancreatitis Sleep apnea BPH (benign prostatic hyperplasia) Hx of cataract Tubular adenoma Diverticulosis Internal hemorrhoids without complication Glaucoma Diabetes mellitus, type II Hyperlipidemia HTN (hypertension) Surgical History Hx of tonsillectomy H/O neck surgery Hx of colonoscopy History of surgical procedure on eye proper using laser Family History Mother HTN (hypertension) High cholesterol Diabetes Pacemaker Social History Household Members: Significant Other Alcohol intake: never Patient Tobacco Use Status: Never used Tobacco Office Procedures Post Void Residual Post Residual Void Post Void Residual (PVR): 30 [id number]-[id number] Void Residual by ultrasound Results AMB Urinalysis, Automated UA Leukoctes 0 Radha/uL Last Edit by Lexi Loredo on 02/17/25 17:10 UA Nitrite Negative Last Edit by Lexi Loredo on 02/17/25 17:10 UA Urobilinogen 17 mg/dL Last Edit by Lexi Loredo on 02/17/25 17:10 UA Protein 0 mg/dL Last Edit by Lexi Loredo on 02/17/25 17:10 UA pH 6.0 Last Edit by Lexi Loredo on 02/17/25 17:10 UA Blood 0 Gigi/uL Last Edit by Lexi Loredo on 02/17/25 17:10 UA Specific [place] 1.015 Last Edit by Lexi Loredo on 02/17/25 17:10 UA Ketone Negative Last Edit by Lexi Loredo on 02/17/25 17:10 UA Bilirubin 0 mg/dL Last Edit by Lexi Loredo on 02/17/25 17:10 UA Glucose 60 mg/dL Last Edit by Lexi Loredo on 02/17/25 17:10 Assessment & Plan Assessment & Plan Orders: Orders AMB Urinalysis Automated Today Z13.9 - Encounter for screening, unspecified Medications: New tamsulosin (Flomax) 0.4 mg PO DAILY 90 caps 3RF Coding CPT Codes Post Residual Void - PVR CPT Code: 14111-Olcb Void Residual by ultrasound ([id number])
--- OUTSIDE RECORDS SUMMARY | 2025-02-17 13:02 | XMS_ITS | Patient Health Record ---
Author Organization [facility] Address [address] [place] [address] Care Team Providers Care Surgical Oncologist Name Role Phone ELLY BRICE Primary Care Provider [phone] Fanny Pelaez Unavailable [phone] Allergies Allergen (clinical drug ingredient) Drug/Non Drug Allergy documented on EMR Reaction Allergy Type Onset Date Status dulaglutide Trulicity pancreatitis Drug Allergy Ac tive Reason For Referral Reason Evaluation and manag ement - Insulin teaching Diagnosis 1 Type 2 diabetes mani itus with unspecified complications (E11.8) Referral Organization [facility] Referring Provider First Name [...] days 08/19/2024 Active FreeStyle Marleen 14 Day [place] - as directed four times a day; [...] 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 2 diabetes mellitus (863239504) Type 2 diabetes mellitus with unspecified complications (E11.8) Active confirmed Problem Mixed hyperlipidemia (653735852) Mixed hyperlipidemia (E78.2) Active confirmed Problem Sleep apnea (62479700) Sleep apnea, unspecified (G47.30) Active confirmed Problem Glaucoma (96568136) Unspecified glaucoma (H40.9) Active confirmed Problem Essential hypertension (97276498) Essential (primary) hypertension (I10) Active confirmed Problem Obstructive uropathy (6401780) Other obstructive and reflux uropathy (N13.8) Active confirmed Vital Signs Heart Rate 64 /min 10/24/2024 Temperature 96.9 degrees Fahrenheit 10/24/2024 Blood pressure diastolic 78 mm Hg 10/24/2024 Oximetry 96 % 10/24/2024 Height 67 in 10/24/2024 Blood pressure systolic 118 mm Hg 10/24/2024 Weight 202.8 lbs 10/24/2024 BMI 31.76 kg/m2 10/24/2024 Encounters Encounter Location Date Provider Diagnosis [address] [place] [address] 02/25/2024 Fanny Pelaez Type 2 diabetes mellitus with unspecified complications E11.[address] [place] [address] 04/29/2024 BABS BETTENCOURT Type 2 diabetes mellitus with unspecified complications E11.8 ; Essential (primary) hypertension I10 and Mixed hyperlipidemia E78.[address] [place] [address] 10/24/2024 BABS SANABRIA Type 2 diabetes mellitus with unspecified complications E11.8 ; Encounter for general adult medical examination without abnormal findings Z00.00 ; Essential (primary) hypertension I10 ; Mixed hyperlipidemia E78.2 ; Sleep apnea, unspecified G47.30 and Encounter for screening for malignant neoplasm of prostate Z12.[address] [place] [address] 02/18/[address] [place] [address] 02/22/[address] [place] [address] 02/22/[address] [place] [address] 02/23/2024 [facility] [address] [place] [address] 03/01/2024 [facility] [address] [place] [address] 03/02/2024 [facility] [address] [place] [address] 03/02/2024 [facility] [address] [place] [address] 03/10/2024 [facility] [address] [place] [address] 03/16/2024 [facility] [address] [place] [address] 05/20/2024 [facility] [address] [place] [address] 05/24/2024 [facility] [address] [place] [address] 06/10/2024 [facility] Type 2 diabetes mellitus with unspecified complications E11.8 [facility] [address] [place] [address] 06/10/2024 [facility] [address] [place] [address] 06/10/2024 [facility] [address] [place] [address] 07/11/2024 [facility] [address] [place] [address] 08/19/2024 [facility] [address] [place] [address] 08/19/2024 [facility] Postnasal drip R09.8 2 [facility] [address] [place] [address] 08/26/2024 [facility] [address] [place] [address] 08/30/2024 [facility] [address] [place] [address] 09/27/[address] [place] [address] 10/04/2024 [facility] [address] [place] [address] 10/21/2024 [facility] Assessments Encounter Date Diagnosis (ICD Code) Assessment [...] seeing a nurse practitioner Jackie Santacruz at [facility] and has also seen a ict educator and his home blood sugar numbers are improving. He is currently on long-acting insulin 34 units along with other medications as mentioned above. He has seen an dust mixer for the past year. Foot care discussed. check A1c. Hypertension. Blood pressure well controlled on current regimen. Hyperlipidemia. Continue Simvastatin 20 MG once a day. Screening blood work before next appointment. General health concerns discussed with patient. Scribe services used to formulate this note under HIPAA compliance and under [place] law mandated for scribe services. Patient aware [...] lisinopril 40 mg daily. He is seen dust mixer in the past 1 year. Foot care [...] lisinopril 40 mg daily. He is seen dust mixer in the past 1 year. Foot care [...] seeing a nurse practitioner Jackie Santacruz at [facility] and has also seen a ict educator and his home blood sugar numbers are improving. He is currently on long-acting insulin 34 units along with other medications as mentioned above. He has seen an dust mixer for the past year. Foot care discussed. check A1c. Hypertension. Blood pressure well controlled on current regimen. Hyperlipidemia. Continue Simvastatin 20 MG once a day. Screening blood work before next appointment. General health concerns discussed with patient. Scribe services used to formulate this note under HIPAA compliance and under [place] law mandated for scribe services. Patient aware [...] lisinopril 40 mg daily. He is seen dust mixer in the past 1 year. Foot care [...] lisinopril 40 mg daily. He is seen dust mixer in the past 1 year. Foot care [...] seeing a nurse practitioner Jackie Santacruz at [facility] and has also seen a ict educator and his home blood sugar numbers are improving. He is currently on long-acting insulin 34 units along with other medications as mentioned above. He has seen an dust mixer for the past year. Foot care discussed. check A1c. Hypertension. Blood pressure well controlled on current regimen. Hyperlipidemia. Continue Simvastatin 20 MG once a day. Screening blood work before next appointment. General health concerns discussed with patient. Scribe services used to formulate this note under HIPAA compliance and under [place] law mandated for scribe services. Patient aware of service. Verbal consent and written consent taken from the patient. Patient understands and verbalizes understanding of the scribes services and all questions answered regarding scribes services. Patient agrees to use of scribes services. 10/24/2024 Sleep apnea, unspecified (ICD-10 - G47.30) [...] lisinopril 40 mg daily. He is seen dust mixer in the past 1 year. Foot care [...] lisinopril 40 mg daily. He is seen dust mixer in the past 1 year. Foot care [...] SPECIFIC ANTIGEN 07/24/2022 MICROSCOPIC, URINE 07/24/2022 Albumin/Creatinine Ratio,[id number] Comp. Metabolic Panel [id number] 2023 Hemoglobin A1c 01/12/2024 Future Test Test Name Order Date Hemoglobin [id number] 10/24/2024 Albumin/Creatinine Ratio,[id number] Lipid Panel-[id number] 10/24/2024 Comp. Metabolic Panel [id number] 2024 PSA (Serial Monitor)-[id number] 10/24/2024 Next Appt Details Provider Name:BABS SANABRIA , 05/01/2025 02:30:00 PM, [address] [place] [address], [phone], Insurance Providers Payer Name Payer Address Payer Phone Subscriber Number Group Number Insured Name Patient Relationship to Insured Coverage Start Date Coverage End Date Medicare [address] [place] [address] [id number] Don Myles Self - patient is the insured [facility] [address] [address] [place] [address] [id number] Don Myles Self - patient is the insured Medical (General) History Medical History History ICD Code Hypertension Hyperlipidemia DM type II he sees Jackie Bennett nurse [facility] [place] Glaucoma cataracts Surgical History Surgery Date(Month/Year) Neck surgery by Dr Tessie chirinos laser eye surgery Hospitalization History Reason Date(Month/Year) surgery
== END 2025-02-17 14:00 | disposition home or self-care (01) ==
LOC: HO.HUSH 12:59
PROVIDERS: PCP Hospitalist; Visit Provider Urology
DX: Z13.9 Encounter for screening, unspecified (principal)

== ENCOUNTER → 2025-02-17 12:58 | Outpatient (BNVA) | payer MEDICARE, OTHER, SELFPAY | PROVIDERS: PCP Hospitalist; Visit Provider Urology | DX: Z48.816 Encounter for surgical aftercare following surgery on the genitourinary system (principal); R35.1 Nocturia; N40.1 Benign prostatic hyperplasia with lower urinary tract symptoms; N13.8 Other obstructive and reflux uropathy; N50.89 Other specified disorders of the male genital organs | CPT/HCPCS: 51798; 81003; 99212 ==

== ENCOUNTER 2025-04-29 09:15 | Outpatient (REF) | payer MEDICARE, OTHER, SELFPAY ==
--- OUTSIDE RECORDS SUMMARY | 2025-04-29 09:19 | XMS_ITS | Patient Health Record ---
Author Organization [facility] Address [address] [place] [address] Care Team Providers Care Director Of Customer Acquisition Name Role Phone [facility] Primary Care Provider [phone] Allergies Allergen (clinical drug ingredient) Drug/Non Drug Allergy documented on EMR Reaction Allergy Type Onset Date Status dulaglutide Trulicity pancreatitis Drug Allergy Ac tive Reason For Referral No Information Medications Medication SIG (Take, Route, Frequency, Duration) Notes Start Date End Date Status Jardiance 10 MG 1 tablet Orally Once a day; Duration: 90 days 08/19/2024 Active FreeStyle Marleen 14 Day [place] - as directed four times a day; Duration: 30 days 07/30/2022 Active metFORMIN HCl 1000 MG 1 tablet with a me al Orally twice a day; Duration: 90 days Active Fluticasone Propionate 50 MCG/ACT 1 spray in each nostril Nasally Once a day; Duration: 90 days 09/01/2023 Active amLODIPine Besylate 10 MG 1 tablet Orall y Once a day; Duration: 90 days Active Tresiba FlexTouch 100 [...] d ay; Duration: 30 days 03/01/2021 Active Glimepiride 2 MG TAKE 1 TABLET DAILY WITH BREAKFAST OR FIRST MAIN MEAL OF THE DAY; Duration: 90 days Active Immunizations Vaccine Route Administration [...] 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 2 diabetes mellitus (449276383) Type 2 diabetes mellitus with unspecified complications (E11.8) Active confirmed Problem Mixed hyperlipidemia (263017492) Mixed hyperlipidemia (E78.2) Active confirmed Problem Sleep apnea (97735082) Sleep apnea, unspecified (G47.30) Active confirmed Problem Glaucoma (33660912) Unspecified glaucoma (H40.9) Active confirmed Problem Essential hypertension (90102078) Essential (primary) hypertension (I10) Active confirmed Problem Obstructive uropathy (9535481) Other obstructive and reflux uropathy (N13.8) Active confirmed Vital Signs Heart Rate 64 /min 10/24/2024 Temperature 96.9 degrees Fahrenheit 10/24/2024 Blood pressure diastolic 78 mm Hg 10/24/2024 Oximetry 96 % 10/24/2024 Height 67 in 10/24/2024 Blood pressure systolic 118 mm Hg 10/24/2024 Weight 202.8 lbs 10/24/2024 BMI 31.76 kg/m2 10/24/2024 Encounters Encounter Location Date Provider Diagnosis [facility] [address] [place] [address] 04/29/2024 BABS SANABRIA Type 2 diabetes mani itus with unspecified complications E11.8 ; Essential (primary) hypertension I10 and Mixed hyperlipidemia E78.2 [facility] [address] [place] [address] 10/24/2024 BRICEPEDRO LUIS SANABRIA Type 2 diabetes mani itus with unspecified complications E11.8 ; Encounter for general adult medical examination without abnormal findings Z00.00 ; Essential (primary) hypertension I10 ; Mixed hyperlipidemia E78.2 ; Sleep apnea, unspecified G47.30 and Encounter for screening for malignant neoplasm of prostate Z12.[address] [place] [address] 05/20/[address] [place] [address] 05/24/[address] [place] [address] 06/10/2024 BRICE [facility] Type 2 diabetes mani itus with unspecified complications E11.[address] [place] [address] 06/10/[address] [place] [address] 06/10/[address] [place] [address] 07/11/[address] [place] [address] 08/19/[address] [place] [address] 08/19/2024 BRICE GUL Postnasal drip R09.[address] [place] [address] 08/26/[address] [place] [address] 08/30/[address] [place] [address] 09/27/[address] [place] [address] 10/04/[address] [address] 10/21/2024 BABS SANABRIA Assessments Encounter Date Diagnosis (ICD Code) Assessment Notes Treatment Notes Treatment Clinical Notes Section Notes 04/29/2024 Type 2 diabetes mellitus with unspecified complications (ICD-10 - E11.8) Mr. Myles is a 69 year old gentleman with DM type II, hypertension, hyperlipidemia here for follow up. Plan is as follows: Type II diabetes mellitus. Last A1c 8.0. He has started seeing a nurse practitioner Jackie Santacruz at [facility] and has also seen a prosthodontist/educator and his home blood sugar numbers are improving. He is currently on long-acting insulin 34 units along with other medications as mentioned above. He has seen an copy center specialist for the past year. Foot care discussed. [...] lisinopril 40 mg daily. He is seen copy center specialist in the past 1 year. Foot care [...] He is a full code and Gracie yMles is his healthcare proxy. 10/24/2024 Encounter for [...] lisinopril 40 mg daily. He is seen copy center specialist in the past 1 year. Foot care [...] 08/19/2024 Postnasal drip (ICD-10 - R09.82) 10/24/2024 Essential (primary) hypertension (ICD-10 - I10) [...] lisinopril 40 mg daily. He is seen copy center specialist in the past 1 year. Foot care [...] seeing a nurse practitioner Jackie Santacruz at [facility] and has also seen a prosthodontist/educator and his home blood sugar numbers are improving. He is currently on long-acting insulin 34 units along with other medications as mentioned above. He has seen an copy center specialist for the past year. Foot care discussed. [...] seeing a nurse practitioner Jackie Santacruz at [facility] and has also seen a prosthodontist/educator and his home blood sugar numbers are improving. He is currently on long-acting insulin 34 units along with other medications as mentioned above. He has seen an copy center specialist for the past year. Foot care discussed. [...] lisinopril 40 mg daily. He is seen copy center specialist in the past 1 year. Foot care [...] lisinopril 40 mg daily. He is seen copy center specialist in the past 1 year. Foot care [...] lisinopril 40 mg daily. He is seen copy center specialist in the past 1 year. Foot care [...] SPECIFIC ANTIGEN 07/24/2022 MICROSCOPIC, URINE 07/24/2022 Albumin/Creatinine Ratio,Urine-[id number] Comp. Metabolic Panel [id number] 2023 Hemoglobin A1c 01/12/2024 Future Test Test Name Order Date Hemoglobin [id number] 10/24/2024 Albumin/Creatinine Ratio,Urine-[id number] Lipid Panel-[id number] 10/24/2024 Comp. Metabolic Panel [id number] 2024 PSA (Serial Monitor)-[id number] 10/24/2024 Next Appt Details Provider Name:BABS SANABRIA , 05/01/2025 02:30:00 PM, [address] [place] [address], [place], [address], Insurance Providers Payer Name Payer Address Payer Phone Subscriber Number Group Number Insured Name Patient Relationship to Insured Coverage Start Date Coverage End Date Medicare [address] [place] [address] [phone] [id number] SharZainaericka Self - patient is the insured [facility] [address] [address] [place] [address] [phone] [id number] Zaina Mylesericka Self - patient is the insured Medical (General) History Medical History History ICD Code Hypertension Hyperlipidemia DM type II he sees Jackie mart at [place] Glaucoma cataracts Surgical History Surgery Date(Month/Year) Neck surgery by Dr Tessie chirinos laser eye surgery Hospitalization History Reason Date(Month/Year) surgery
[2025-04-29 10:39] LABS: Hemoglobin A1C 264.1984 umol/L; Total Hemoglobin (HGBA1C) 4053.8953 umol/L
[2025-04-29 11:09] LABS: Alanine Aminotransferase 25 U/L (0-40); Albumin Level 4.3 g/dL (3.5-5.0); Alkaline Phosphatase 87 U/L (39-117); Anion Gap 13 (12-20); Aspartate Amino Transferase 26 U/L (5-37); Blood Urea Nitrogen 21 mg/dL (9-16); Calcium 9.4 mg/dL (8.4-10.2); Carbon Dioxide 24 mmol/L (22-29); Chloride 107 mmol/L (96-108); Cholesterol 135 mg/dL (<200); Estimated Glomerular Filt Rate > 60; HDL Cholesterol 32 mg/dL (>40); Potassium 3.5 mmol/L (3.3-5.1); Sodium 140 mmol/L (135-145); Total Protein 6.9 g/dL (6.5-8.0); Triglycerides 191 mg/dL (<150)
[2025-04-29 11:43] LABS: Prostate Specific Antigen 2.43 ng/mL (<0.05-4.0)
[2025-04-29 12:04] LABS: Microalbum/Creatinine Ratio Ur 5.9 ug/mg cr (<30)
== END 2025-04-29 09:16 | disposition home or self-care (01) ==
LOC: HO.LAB 09:15
PROVIDERS: PCP Hospitalist; Visit Provider Hospitalist
DX: Z12.5 Encounter for screening for malignant neoplasm of prostate (principal); E11.8 Type 2 diabetes mellitus with unspecified complications
CPT/HCPCS: 36415; 80053; 80061; 82043; 82570; 83036; 84153

== ENCOUNTER 2025-05-26 14:42 | Outpatient (AMB) | payer MEDICARE, OTHER, SELFPAY ==
--- NOTE | 2025-05-26 15:02 | A.OFFVIS_ITS ---
Vital Signs 05/26/25 15:04 Height 5 ft 8 in Weight 208 lb 8.917 oz BMI 31.7 BP 116/58 L Blood Pressure Location Rt brachial Position Sitting Pulse 78 Pulse Source Pulse Oximeter Pulse Oximetry (%) 96 Oxygen Delivery Method Room Air Intake Visit Reasons: T2DM Intake Note: Patient presents today for a follow-up for Type 2 Diabetes Mellitus: Last Diabetic eye exam was on:?DUE Last Podiatry exam was on: Does not see a Debt And Budget Counselor Most recent HbA1c:? 8.1%, 04/29/2025 Random Glucose-? 132?mg/dL, Today.? Patient states blood sugars have been out of whach since Surgery in November 03. 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 Accompanied by: Self / Same As Patient Allergies No Known Allergies Allergy (Verified 05/26/25 15:07) Medication List - Last Reconciled 05/26/25 by TONY Dinh amlodipine 10 mg PO DAILY chlorthalidone 25 mg PO DAILY empagliflozin (Jardiance) 20 mg PO DAILY fluticasone propionate 50 mcg/actuation 1 spray intranasal DAILY FreeStyle Marleen 3 Sensor (blood-glucose sensor) every 15 days for continous glucose readings NS insulin lispro (Humalog KwikPen (U-100) Insulin) 10 units (0.1 mL) subcut DAILY Lantus Solostar U-100 Insulin (insulin glargine) 42 units (0.42 mL) subcut QPM 90 days NS lisinopril 40 mg PO DAILY metformin 1,000 mg PO BID pen needle, diabetic As directed bid simvastatin 20 mg PO BEDTIME tamsulosin (Flomax) 0.4 mg PO DAILY timolol maleate 0.5% 1 drp ophthalmic (eye) DAILY HPI Comments Details: 70-year-old male with a past medical history of type 2 diabetes, obesity, hypertension and hyperlipidemia presents for diabetic management. This is my 1st visit with the patient. He was last seen by my colleague on 02/08/2025. He was diagnosed with type 2 diabetes at age [age] years old. Hemoglobin A1c 8.1% 04/29/2025. 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 He has previously seen JACKLYN Gore. Current medications: Lantus 42 units nightly, Humalog 10 units before lunch, Jardiance 25 mg daily, metformin a 1000 mg twice a day, glimepride 4 mg. Past medications: Trulicity discontinued after episode of pancreatitis in 2023. Actos discontinued due to concerns over relationship to bladder cancer. Complications: No known complications. Hyperlipidemia is treated with a statin. Hypertension is treated with lisinopril, chlorthalidone and amlodipine ROS: Constitutional: No unexplained weight loss, fever, chills, fatigue or night sweats. Eyes: No vision changes Respiratory: No shortness of breath Cardiovascular: No chest pain Neurologic: No headache, dizziness, syncope, numbness or tingling Endocrine: No cold or heat intolerance. No polyuria or polydipsia.. Physical exam: Constitutional: Alert, in no distress. Neck: Supple, Full range of motion. No lymphadenopathy. No palpable thyroid masses. Respiratory: Clear to auscultation. Cardiovascular: S1 S2 regular. No murmurs. Feet: Warm and well perfused, no clubbing, cyanosis or edema. No open wounds or ulcers. [facility] Medical History (Updated 05/26/25 @ 17:35 by TONY Dinh) Essential hypertension Obesity (BMI 30.0-34.9) Uncontrolled type 2 diabetes mellitus with hyperglycemia Pancreatitis Sleep apnea BPH (benign prostatic hyperplasia) Hx of cataract Tubular adenoma Diverticulosis Internal hemorrhoids without complication Glaucoma Diabetes mellitus, type II Hyperlipidemia HTN (hypertension) Surgical History Hx of tonsillectomy H/O neck surgery Hx of colonoscopy History of surgical procedure on eye proper using laser Family History Mother HTN (hypertension) High cholesterol Diabetes Pacemaker Social History Household Members: Significant Other Alcohol intake: never Patient Tobacco Use Status: Never used Tobacco Physical Exam Vital Signs: Last Vital Signs Pulse 78 05/26/25 15:04 BP 116/58 L 05/26/25 15:04 Pulse Ox 96 05/26/25 15:04 Oxygen Delivery Method Room Air 05/26/25 15:04 BMI result Body Mass Index 31.7 Office Procedures Glucose Monitoring Details Details: See HPI 86661 - Glucose monitoring, continuous-physician I&R Procedure code (CPT) selection complete Results Reviewed Results Reviewed: Laboratory Last Values Glucose (Clinic) 132 mg/dL (60-115) H 05/26/25 15:14 Laboratory Tests 04/29/25 09:40 Creatinine 1.12 Estimated GFR > 60 Hemoglobin A1c % 8.1 H AST 26 ALT 25 Triglycerides 191 H Cholesterol 135 LDL Cholesterol, Calc 65 HDL Cholesterol 32 L Urine Creatinine 117.32 Urine Microalbumin 7.0 Microalb/Creat Ratio 5.9 Assessment & Plan Assessment & Plan (1) Uncontrolled type 2 diabetes mellitus with hyperglycemia: Code(s): E11.65 - Type 2 diabetes mellitus with hyperglycemia Category: Medical (2) Obesity (BMI 30.0-34.9): Code(s): E66.811 - Obesity, class 1 Category: Medical (3) Essential hypertension: Code(s): I10 - Essential (primary) hypertension Category: Medical (4) Hyperlipidemia: Code(s): E78.5 - Hyperlipidemia, unspecified Category: Medical Qualifiers: Hyperlipidemia type: mixed hyperlipidemia Qualified Code(s): E78.2 - Mixed hyperlipidemia Plan In summary this is a 70-year-old male with suboptimally controlled type 2 diabetes on his current regimen. Continue Lantus 42 units nightly Start taking 4 units of Humalog before breakfast, take 12 units before lunch and 4 units before dinner. Administer 15 minutes before meals. Continue Jardiance 25 mg daily and Metformin 1000 mg twice daily. Stop Glimepride. If you experience low blood sugar (under 70), treat this by eating a chewable fruit candy like skittles or jelly beans (about 8 pieces), 4 ounces (1/2 cup) of fruit juice (not diet), 1 tablespoon of honey or 4 glucose tablets. If your blood sugar is under 50, take double the amount of one of the above. Recheck your blood sugar in 15 minutes. Diabetic diet reviewed. He is interested in the C[employer] simplicity. 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 Patient says he has glucometer, lancets and test strips as a backup to his sensor. Hypertension is controlled. Continue current regimen. Recommended avoidance of carbohydrates and sugars for triglycerides. Continue simvastatin. LDL at goal. Follow up in 1 month for re-evaluation. Orders: Orders AMB Glucose Monitoring Today E11.9 - Type 2 diabetes mellitus without complications Referrals Diabetes Education Referral E11.65 - Type 2 diabetes mellitus with hyperglycemia Medications: Changed From Lantus Solostar U-100 Insulin (insulin glargine) 38 units (0.38 mL) subcut QPM 90 days 36 mL 3RF NS E11.9 - Type 2 diabetes mellitus without complications To Lantus Solostar U-100 Insulin (insulin glargine) 42 units (0.42 mL) subcut QPM 45 mL 5RF 90 days NS E11.9 - Type 2 diabetes mellitus without complications From insulin lispro (Humalog KwikPen (U-100) Insulin) with lunch 10 units (0.1 mL) subcut DAILY 90 days 9 mL 3RF To insulin lispro (Humalog KwikPen (U-100) Insulin) Take 4 units before breakfast, 12 units before lunch and 4 units before dinner. 10 units (0.1 mL) subcut DAILY 15 mL 5RF Patient Instructions: Continue Lantus 42 units nightly Start taking 4 units of Humalog before breakfast, take 12 units before lunch and 4 units before dinner. Administer 15 minutes before meals. Continue Jardiance 25 mg daily and Metformin 1000 mg twice daily. Stop Glimepride. If you experience low blood sugar (under 70), treat this by eating a chewable fruit candy like skittles or jelly beans (about 8 pieces), 4 ounces (1/2 cup) of fruit juice (not diet), 1 tablespoon of honey or 4 glucose tablets. If your blood sugar is under 50, take double the amount of one of the above. Recheck your blood sugar in 15 minutes. Coding Level of Care Code Est Pt Level 4 (73120) Diagnoses Uncontrolled type 2 diabetes mellitus with hyperglycemia E11.65 Obesity (BMI 30.0-34.9) E66.811 Essential hypertension I10 Mixed hyperlipidemia E78.2 Hyperlipidemia type: mixed hyperlipidemia CPT Codes Details - CPT: 50017 - Glucose monitoring, continuous-physician I&R ([id number])
[2025-05-26 15:04] VITALS: BP 116/58; PULSE 78; O2SAT 96; BMI 31.7
[2025-05-26 15:18] LABS: Glucose, Whole Blood 132 mg/dL (60-115)
== END 2025-05-26 15:50 | disposition home or self-care (01) ==
LOC: HO.ENCR 14:42
PROVIDERS: PCP Hospitalist; Visit Provider Physician Assistant Medical
DX: E11.65 Type 2 diabetes mellitus with hyperglycemia (principal); E66.811 Obesity, class 1; I10 Essential (primary) hypertension; E78.2 Mixed hyperlipidemia

== ENCOUNTER → 2025-05-26 14:42 | Outpatient (BNVA) | payer MEDICARE, OTHER, SELFPAY | PROVIDERS: PCP Hospitalist; Visit Provider Physician Assistant Medical | DX: E11.65 Type 2 diabetes mellitus with hyperglycemia (principal); E66.811 Obesity, class 1; I10 Essential (primary) hypertension; E78.2 Mixed hyperlipidemia; Z79.4 Long term (current) use of insulin; Z83.3 Family history of diabetes mellitus | CPT/HCPCS: 82947; 99212 ==

== ENCOUNTER 2025-06-15 14:59 | Outpatient (AMB) | payer MEDICARE, OTHER, SELFPAY ==
--- NOTE | 2025-06-15 15:04 | A.OFFVIS_ITS ---
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 The patient underwent a right hydrocelectomy on January 03, 2025, and reports that all pain has resolved since the procedure. He is currently on tamsulosin for management of benign prostatic hyperplasia, which aids in urination and prostate health. The patient has noted fluctuations in blood glucose levels, which are being monitored and managed with a new fast-acting medication. He has scheduled follow-up laboratory tests to further assess and manage his blood glucose levels. Results - Prostate-specific antigen (PSA) level: 2.43 ng/mL (normal range: 0-4 ng/mL) as of April 29 Plan 1. Benign Prostatic Hyperplasia - Continue tamsulosin for management of urinary symptoms. - Follow-up in 10 months to reassess prostate health and PSA levels. 2. Post Right Hydrocelectomy - Post-operative evaluation indicates resolution of pain and no complications. 3. Elevated Blood Glucose Levels - Monitor blood glucose levels with follow-up laboratory tests scheduled. - Continue current fast-acting medication for glucose management. 02/17/25 -status post right hydrocelectomy 01/03/2025, complains of persistent discomfort. Exam - no signs of cellulitis minimal swelling. Keep elevated on towel when sitting, wear athletic scrotal support underwear. FU with nursing in 2 weeks. 12/05/24--discussed renal and scrotal ultrasound results Right hydrocele. We will schedule outpatient hydrocelectomy. Right kidney possible 5 mm stone. The patient had a CAT scan 2023 no nephrolithiasis was noted at that time we will continue to monitor kidneys. Patient instructed to increase fluids 09/12/24--Don is a 69-year-old male who is here for evaluation he has concerns regarding right scrotal swelling. He denies pain. He also complains of getting up frequently at nighttime. Denies dysuria. AUA symptom score 15/35. Patient was unable to give urine sample bladder scan PVR 111 mL. Review of chart PSA-01/09/24--2.15 ng/mL. I have discussed trial of tamsulosin 0.4 mg at bedtime. Discussed side effects include retrograde ejaculation. Will check ultrasound urinary tract including scrotum. Examination right testicular swelling suggestive of right hydrocele. Testicles nontender. [facility] Medical History Essential hypertension Obesity (BMI 30.0-34.9) Uncontrolled type 2 diabetes mellitus with hyperglycemia Pancreatitis Sleep apnea BPH (benign prostatic hyperplasia) Hx of cataract Tubular adenoma Diverticulosis Internal hemorrhoids without complication Glaucoma Diabetes mellitus, type II Hyperlipidemia HTN (hypertension) Surgical History Hx of tonsillectomy H/O neck surgery Hx of colonoscopy History of surgical procedure on eye proper using laser Family History Mother HTN (hypertension) High cholesterol Diabetes Pacemaker Social History Household Members: Significant Other Alcohol intake: never Patient Tobacco Use Status: Never used Tobacco Results AMB Urinalysis, Automated UA Leukoctes 0 Radha/uL Last Edit by Lexi Loredo on 06/15/25 16:22 UA Nitrite Negative Last Edit by Lexi Loredo on 06/15/25 16:22 UA Urobilinogen 0.2 mg/dL Last Edit by Lexi Loredo on 06/15/25 16:22 UA Protein 0 mg/dL Last Edit by Lexi Loredo on 06/15/25 16:22 UA pH 6.0 Last Edit by Lexi Loredo on 06/15/25 16:22 UA Blood 0 Gigi/uL Last Edit by Lexi Loredo on 06/15/25 16:22 UA Specific [place] 1.010 Last Edit by Lexi Loredo on 06/15/25 16:22 UA Ketone Negative Last Edit by Lexi Loredo on 06/15/25 16:22 UA Bilirubin 0 mg/dL Last Edit by Lexi Loredo on 06/15/25 16:22 UA Glucose 1000 mg/dL Last Edit by Lexi Loredo on 06/15/25 16:22 Results Reviewed Results Reviewed: Laboratory Last Values Urine pH (Auto) 6.0 06/15/25 16:03 Specific [place] (Auto) 1.010 06/15/25 16:03 Urine Protein (Auto) 0 mg/dL 06/15/25 16:03 Glucose (UA)(Auto) 1000 mg/dL 06/15/25 16:03 Urine Ketones (Auto) Negative 06/15/25 16:03 Urine Blood (Auto) 0 Gigi/uL 06/15/25 16:03 Urine Nitrite (Auto) Negative 06/15/25 16:03 Urine Bilirubin (Auto) 0 mg/dL 06/15/25 16:03 Urine Urobilinogen (Auto) 0.2 mg/dL 06/15/25 16:03 Leukocyte Esterase (Auto) 0 Radha/uL 06/15/25 16:03 Assessment & Plan Assessment & Plan Orders: Orders AMB Urinalysis Automated 06/15/25 Z13.9 - Encounter for screening, unspecified AMB Post Void Residual by ultrasound 06/15/25 N40.1 - Benign prostatic hyperplasia with lower urinary tract symptoms Coding
--- OUTSIDE RECORDS SUMMARY | 2025-06-15 18:05 | XMS_ITS | Patient Health Record ---
Author Organization [employer] Address [address] [place] [address] Care Team Providers Care Cordwainer Name Role Phone MORALES SANABRIABRICE Primary Care Provider [phone] Allergies Allergen (clinical drug ingredient) Drug/Non Drug Allergy documented on EMR Reaction Allergy Type Onset Date Status dulaglutide Trulicity pancreatitis Drug Allergy Ac tive Reason For Referral No Information Medications Medication SIG (Take, Route, Frequency, Duration) Notes Start Date End Date Status Fluticasone Propionate 50 MCG/ACT 1 spray in each nostril Nasally Once a day; Duration: 90 days 09/01/2023 Active Glimepiride 2 MG TAKE 1 TABLET DAILY WITH BREAKFAST OR FIRST MAIN MEAL OF THE DAY; Duration: 90 days Active Morphine Sulfate 15 MG 1 tablet as neede d Orally every 4 hrs; Duration: 5 days 01/15/2024 Not-Taking Tresiba FlexTouch 100 UNIT/ML as directed Subcutaneous Not-Taking Ondansetron 4 MG 1 tablet on the tong ue and allow to dissolve Orally Once a day; Duration: 10 days Active Latanoprost 0.005 % 1 drop into affected eye in the evening Ophthalmic Once a day Not-Taking Simvastatin 20 MG TAKE 1 TABLET ONE TI ME DAILY IN THE EVENING; Duration: 90 Active Lisinopril 40 MG 1 tablet Orally Once a day; Duration: 90 days Active Lantus 100 UNIT/ML as directed take 15 units Subcutaneous at bedtime; Duration: 30 days 02/25/2024 Not-Taking Meloxicam 15 MG 1 tablet Orally Once a day; Duration: 30 days 05/02/2025 Active Lantus 100 UNIT/ML 42 unit Subcutaneous Daily; Duration: 30 days 08/19/2024 Active Chlorthalidone 25 MG TAKE 1/2 TABLET ONE TIME DAILY; Duration: 90 Active FreeStyle Marleen 2 Sensor - CHANGE EVERY 14 DAYS; Duration: 30 days Active HumaLOG KwikPen 100 UNIT/ML 10 UNITS Subcutaneous daily Active Jardiance 10 MG 1 tablet Orally Once a day; Duration: 90 days 08/19/2024 Active Blood Pressure - as directed once a d ay; Duration: 30 days 03/01/2021 Active metFORMIN HCl 1000 MG 1 tablet with a me al Orally twice a day; Duration: 90 days Active FreeStyle Marleen 14 Day [place] - as directed four times a day; Duration: 30 days 07/30/2022 Active amLODIPine Besylate 10 MG 1 tablet Orall y Once a day; Duration: 90 days Active Immunizations Vaccine Route Administration Date Status Comme nts COVID Unknown 11/21/2020 Administered Pfizer COVID Moderna Unknown 10/23/2020 Administered COVID Moderna Unknown 12/04/2021 Administered Flu Unknown 04/27/2023 Administered Flu High-Dose Unknown 05/13/2022 Administered Fluzone High Dose 64474 IM Intramuscular 05/02/2025 Admini stered Influenza (split), seasonal, intradermal, preservative free Unknown [...] 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 2 diabetes mellitus (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) Type 2 diabetes mellitus with unspecified complications (E11.8) Active confirmed Problem Mixed hyperlipidemia (769974975) Mixed hyperlipidemia (E78.2) Active confirmed Problem Sleep apnea (93877256) Sleep apnea, unspecified (G47.30) Active confirmed Problem Glaucoma (09323895) Unspecified glaucoma (H40.9) Active confirmed Problem Essential hypertension (12529849) Essential (primary) hypertension (I10) Active confirmed Problem Obstructive uropathy (4560164) Other obstructive and reflux uropathy (N13.8) Active confirmed Vital Signs Heart Rate 72 /min 05/02/2025 Temperature 97.9 degrees Fahrenheit 05/02/2025 Oximetry 96 % 05/02/2025 Blood pressure diastolic 68 mm Hg 05/02/2025 Height 67 in 05/02/2025 Blood pressure systolic 110 mm Hg 05/02/2025 Weight 206.2 lbs 05/02/2025 BMI 32.29 kg/m2 05/02/2025 Encounters Encounter Location Date Provider Diagnosis [facility] [address] [facility] [address] [place] [address] 10/24/2024 BABS SANABRIA Type 2 diabetes mani itus with unspecified complications E11.8 ; Encounter for general adult medical examination without abnormal findings Z00.00 ; Essential (primary) hypertension I10 ; Mixed hyperlipidemia E78.2 ; Sleep apnea, unspecified G47.30 and Encounter for screening for malignant neoplasm of prostate Z12.5 [facility] [address] [facility] [address] [place] [address] 05/02/2025 BABS SANABRIA Type 2 diabetes mani itus with unspecified complications E11.8 ; Essential (primary) hypertension I10 ; Mixed hyperlipidemia E78.2 ; Sleep apnea, unspecified G47.30 and Encounter for immunization Z23 [facility] [address] [facility] [address] [place] [address] 07/11/2024 [facility] [address] [facility] [address] [address] [place] [address] 08/19/2024 [facility] [address] [facility] [address] [place] [address] 08/19/2024 BABS SANABRIA Postnasal drip R09.8 2 [facility] [address] [facility] [address] [place] [address] 08/26/2024 [facility] [address] [facility] [address] [place] [address] 08/30/2024 [facility] [address] [facility] [address] [place] [address] 09/27[facility] [address] [facility] [address] [place] [address] 10/04/2024 [facility] [address] [facility] [address] [place] [address] 10/21/2024 [facility] Assessments Encounter Date Diagnosis (ICD Code) Assessment Notes Treatment Notes Treatment Clinical Notes Section Notes 08/19/2024 Postnasal drip (ICD-10 - R09.82) 10/24/2024 [...] lisinopril 40 mg daily. He is seen engine repairer service in the past 1 year. Foot care were discussed with the patient. Hypertension/hyperlip idemia. Blood pressure well controlled on lisinopril 40 [...] lisinopril 40 mg daily. He is seen engine repairer service in the past 1 year. Foot care were discussed with the patient. Hypertension/hyperlip idemia. Blood pressure well controlled on lisinopril 40 [...] and Gracie Myles is his healthcare proxy. 05/02/2025 Type 2 diabetes mellitus with unspecified complications (ICD-10 - E11.8) Don is 69 years old pleasant gentleman with insulin-dependent DM type II, hypertension, leg edema, obstructive sleep apnea is here today for follow-up. Plan is as follows Insulin-dependent DM2. He saw nurse practitioner Jackie Bennett in the past and his A1c is 8.1 and goal is under 7 and increased Lantus 42 units along with short-acting insulin 10 units with meals and continueglimepiride 2 mg daily and Metformin 1000 mg twice a day. He was advised to increase Lantus by 2 units every 3 days for goal blood sugars of less than 130 in the morning and postprandial less than 180. He is on simvastatin 20 mg and lisinopril 40 mg daily. He is seen engine repairer service in the past 1 year. Foot care were discussed with the patient. Hypertension/hyperlip idemia. Blood pressure well controlled on lisinopril 40 mg and amlodipine 10 mg daily. He is on simvastatin 20 mg and is tolerating the medications fine. Obstructive sleep apnea. Continue CPAP machine and it is helping. Degenerative disc disease. Do regular stretching exercises, weight loss and is given prescription for meloxicam 15 mg as needed and side effects of the medications explained and advised to take Tylenol arthritis regularly for pain. He is not interested in physical therapy at this point. Obesity. Complications of obesity discussed and advised to lose on average 6 pounds a month. He is up to date on health specific screening. He is a full code and Gracie Myles is his healthcare proxy. 05/02/2025 Essential (primary) hypertension (ICD-10 - I10) Don is 69 years old pleasant gentleman with insulin-dependent DM type II, hypertension, leg edema, obstructive sleep apnea is here today for follow-up. Plan is as follows Insulin-dependent DM2. He saw nurse practitioner Jackie Bennett in the past and his A1c is 8.1 and goal is under 7 and increased Lantus 42 units along with short-acting insulin 10 units with meals and continueglimepiride 2 mg daily and Metformin 1000 mg twice a day. He was advised to increase Lantus by 2 units every 3 days for goal blood sugars of less than 130 in the morning and postprandial less than 180. He is on simvastatin 20 mg and lisinopril 40 mg daily. He is seen engine repairer service in the past 1 year. Foot care were discussed with the patient. Hypertension/hyperlip idemia. Blood pressure well controlled on lisinopril 40 mg and amlodipine 10 mg daily. He is on simvastatin 20 mg and is tolerating the medications fine. Obstructive sleep apnea. Continue CPAP machine and it is helping. Degenerative disc disease. Do regular stretching exercises, weight loss and is given prescription for meloxicam 15 mg as needed and side effects of the medications explained and advised to take Tylenol arthritis regularly for pain. He is not interested in physical therapy at this point. Obesity. Complications of obesity discussed and advised [...] lisinopril 40 mg daily. He is seen engine repairer service in the past 1 year. Foot care were discussed with the patient. Hypertension/hyperlip idemia. Blood pressure well controlled on lisinopril 40 [...] and Gracie Myles is his healthcare proxy. 05/02/2025 Mixed hyperlipidemia (ICD-10 - E78.2) Don is 69 years old pleasant gentleman with insulin-dependent DM type II, hypertension, leg edema, obstructive sleep apnea is here today for follow-up. Plan is as follows Insulin-dependent DM2. He saw nurse practitioner Jackie Bennett in the past and his A1c is 8.1 and goal is under 7 and increased Lantus 42 units along with short-acting insulin 10 units with meals and continueglimepiride 2 mg daily and Metformin 1000 mg twice a day. He was advised to increase Lantus by 2 units every 3 days for goal blood sugars of less than 130 in the morning and postprandial less than 180. He is on simvastatin 20 mg and lisinopril 40 mg daily. He is seen engine repairer service in the past 1 year. Foot care were discussed with the patient. Hypertension/hyperlip idemia. Blood pressure well controlled on lisinopril 40 mg and amlodipine 10 mg daily. He is on simvastatin 20 mg and is tolerating the medications fine. Obstructive sleep apnea. Continue CPAP machine and it is helping. Degenerative disc disease. Do regular stretching exercises, weight loss and is given prescription for meloxicam 15 mg as needed and side effects of the medications explained and advised to take Tylenol arthritis regularly for pain. He is not interested in physical therapy at this point. Obesity. Complications of obesity discussed and advised to lose on average 6 pounds a month. He is up to date on health specific screening. He is a full code and Gracie Myles is his healthcare proxy. 05/02/2025 Sleep apnea, unspecified (ICD-10 - G47.30) Don is 69 years old pleasant gentleman with insulin-dependent DM type II, hypertension, leg edema, obstructive sleep apnea is here today for follow-up. Plan is as follows Insulin-dependent DM2. He saw nurse practitioner Jackie Bennett in the past and his A1c is 8.1 and goal is under 7 and increased Lantus 42 units along with short-acting insulin 10 units with meals and continueglimepiride 2 mg daily and Metformin 1000 mg twice a day. He was advised to increase Lantus by 2 units every 3 days for goal blood sugars of less than 130 in the morning and postprandial less than 180. He is on simvastatin 20 mg and lisinopril 40 mg daily. He is seen engine repairer service in the past 1 year. Foot care were discussed with the patient. Hypertension/hyperlip idemia. Blood pressure well controlled on lisinopril 40 mg and amlodipine 10 mg daily. He is on simvastatin 20 mg and is tolerating the medications fine. Obstructive sleep apnea. Continue CPAP machine and it is helping. Degenerative disc disease. Do regular stretching exercises, weight loss and is given prescription for meloxicam 15 mg as needed and side effects of the medications explained and advised to take Tylenol arthritis regularly for pain. He is not interested in physical therapy at this point. Obesity. Complications of obesity discussed and advised [...] lisinopril 40 mg daily. He is seen engine repairer service in the past 1 year. Foot care were discussed with the patient. Hypertension/hyperlip idemia. Blood pressure well controlled on lisinopril 40 [...] lisinopril 40 mg daily. He is seen engine repairer service in the past 1 year. Foot care were discussed with the patient. Hypertension/hyperlip idemia. Blood pressure well controlled on lisinopril 40 [...] and Gracie Myles is his healthcare proxy. 05/02/2025 Encounter for immunization (ICD-10 - Z23) Don is 69 years old pleasant gentleman with insulin-dependent DM type II, hypertension, leg edema, obstructive sleep apnea is here today for follow-up. Plan is as follows Insulin-dependent DM2. He saw nurse practitioner Jackie Bennett in the past and his A1c is 8.1 and goal is under 7 and increased Lantus 42 units along with short-acting insulin 10 units with meals and continueglimepiride 2 mg daily and Metformin 1000 mg twice a day. He was advised to increase Lantus by 2 units every 3 days for goal blood sugars of less than 130 in the morning and postprandial less than 180. He is on simvastatin 20 mg and lisinopril 40 mg daily. He is seen engine repairer service in the past 1 year. Foot care were discussed with the patient. Hypertension/hyperlip idemia. Blood pressure well controlled on lisinopril 40 mg and amlodipine 10 mg daily. He is on simvastatin 20 mg and is tolerating the medications fine. Obstructive sleep apnea. Continue CPAP machine and it is helping. Degenerative disc disease. Do regular stretching exercises, weight loss and is given prescription for meloxicam 15 mg as needed and side effects of the medications explained and advised to take Tylenol arthritis regularly for pain. He is not interested in physical therapy at this point. Obesity. Complications of obesity discussed and advised [...] lisinopril 40 mg daily. He is seen engine repairer service in the past 1 year. Foot care were discussed with the patient. Hypertension/hyperlip idemia. Blood pressure well controlled on lisinopril 40 [...] 22 HEMOGLOBIN A1C WITH EST GLUCOSE 01/08/20 LIPID PANEL 01/07/2023 LIPID PANEL 06/15/2023 MICROALBUMIN, URINE 06/15/2023 MICROALBUMIN, URINE 01/07/2023 PSA, SCREEN 06/25/2022 PSA, SCREEN 01/07/2023 CBC 07/24/2022 COMPREHENSIVE METABOLIC PANEL 07/24/2022 LIPID PROFILE 07/24/2022 PROSTATIC SPECIFIC ANTIGEN 07/24/2022 MICROSCOPIC, URINE 07/24/2022 Albumin/Creatinine Ratio,[id number] Comp. Metabolic Panel [id number] Hemoglobin A1c 01/12/2024 Future Test Test Name Order Date Hemoglobin [id number] 05/02/2025 Albumin/Creatinine Ratio,[id number] Lipid [id number] 05/02/2025 Comp. Metabolic Panel [id number] Next Appt Details Provider Name:Fanny bentley, 10/26/2025 02:00:00 PM, [address] [place] [address], [id number], Insurance Providers Payer Name Payer Address Payer Phone Subscriber Number Group Number Insured Name Patient Relationship to Insured Coverage Start Date Coverage End Date Medicare [address] [place] [id number] Don Myles Self - patient is the insured [employer] [address] [address] [place] [address] [id number] Don Myles Self - patient is the insured Medical (General) History Medical History History ICD Code Hypertension Hyperlipidemia DM type II he sees Jackie mart at [place] Glaucoma cataracts Surgical History Surgery Date(Month/Year) Neck surgery by Dr Tessie chirinos laser eye surgery Hospitalization History Reason Date(Month/Year) surgery
== END 2025-06-15 16:30 ==
LOC: HO.HUSH 15:00
PROVIDERS: PCP Hospitalist; Visit Provider Urology
DX: Z13.9 Encounter for screening, unspecified (principal)

== ENCOUNTER → 2025-06-15 14:59 | Outpatient (BNVA) | payer MEDICARE, OTHER, SELFPAY | PROVIDERS: PCP Hospitalist; Visit Provider Urology | DX: N40.1 Benign prostatic hyperplasia with lower urinary tract symptoms (principal); R35.1 Nocturia; N43.3 Hydrocele, unspecified; Z98.890 Other specified postprocedural states; E11.65 Type 2 diabetes mellitus with hyperglycemia; Z96.41 Presence of insulin pump (external) (internal); Z79.4 Long term (current) use of insulin | CPT/HCPCS: 81003; 99212 ==

== ENCOUNTER 2025-06-20 15:40 | Outpatient (AMB) | payer MEDICARE, OTHER, SELFPAY ==
--- NOTE | 2025-06-20 16:10 | A.OFFVIS_ITS ---
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 Accompanied by: Self / Same As Patient Allergies No Known Allergies Allergy (Verified 06/15/25 15:44) HPI Comprehensive Diabetes Asmnt Most Recent Diabetes Results: Microalb/Creat Ratio, (<30) 5.9 ug/mg cr 04/29/25 Cholesterol, (<200) 135 mg/dL 04/29/25 HDL Cholesterol, (>40) 32 mg/dL L 04/29/25 Triglycerides, (<150) 191 mg/dL H 04/29/25 Creatinine, (0.5-1.4) 1.12 mg/dL 04/29/25 BUN, (9-16) 21 mg/dL H 04/29/25 Sodium, (135-145) 140 mmol/L 04/29/25 Potassium, (3.3-5.1) 3.5 mmol/L 04/29/25 Chloride, (96-108) 107 mmol/L 04/29/25 Carbon Dioxide, (22-29) 24 mmol/L 04/29/25 Calcium, (8.4-10.2) 9.4 mg/dL 04/29/25 AST, (5-37) 26 U/L 04/29/25 ALT, (0-40) 25 U/L 04/29/25 Total Protein, (6.5-8.0) 6.9 g/dL 04/29/25 Albumin, (3.5-5.0) 4.3 g/dL 04/29/25 [facility] Medical History Essential hypertension Obesity (BMI 30.0-34.9) Uncontrolled type 2 diabetes mellitus with hyperglycemia Pancreatitis Sleep apnea BPH (benign prostatic hyperplasia) Hx of cataract Tubular adenoma Diverticulosis Internal hemorrhoids without complication Glaucoma Diabetes mellitus, type II Hyperlipidemia HTN (hypertension) Surgical History Hx of tonsillectomy H/O neck surgery Hx of colonoscopy History of surgical procedure on eye proper using laser Family History Mother HTN (hypertension) High cholesterol Diabetes Pacemaker Social History Household Members: Significant Other Alcohol intake: never Patient Tobacco Use Status: Never used Tobacco Assessment & Plan Assessment & Plan (1) Uncontrolled type 2 diabetes mellitus with hyperglycemia: Code(s): E11.65 - Type 2 diabetes mellitus with hyperglycemia Plan: Reviewed CeQue insulin delivery patch info: Pt at visit for CeQue insulin delivery patch education: The CeQue insulin delivery patch holds up to 200 units of insulin. It can be worn on abdomen, side of your thigh or back of arm. Each click will deliver 2 units of rapid acting insulin Instructions: Wash your hands Lock patch by clicking buttons on each side until the will no longer click Prepare site where you will place patch with either alcohol or soap and water, avoid waist band and belt line Do not insert through scar tissue, piercings and tattoos be sure to place patch at least 2 in from belly button. Fill syringe from vial up to 200 units. Insert, needle into blue hole to fill patch To prime patch proceed with [address] patch in millinery teacher while holding millinery teacher with both hands use thumbs to push down on blue cap in on patch Squeeze at both ends a blue cap and carefully began to pull cap, this should also remove adhesive pad liner. Be cautious of exposed needle, check to make sure needle is not bent Do not to push green button until millinery teacher is against prepared site Place patch on your body, slide yellow safety and press green button down Push until you hear a click Press millinery teacher firmly for 10 seconds, remove millinery teacher by lifting it away To remove needle squeeze clear sides of credit compliance officer at the base Discard needle in sharps container Press down firmly on patch with palm of your hand for 10 seconds Be sure to rotate patch regularly Patient will follow-up with senior health educator when he receives insulin delivery patch Coding Level of Care Code Est Pt Level 1 (67467) Diagnoses Uncontrolled type 2 diabetes mellitus with hyperglycemia E11.65
--- OUTSIDE RECORDS SUMMARY | 2025-06-20 17:12 | XMS_ITS | Patient Health Record ---
Author Organization [email or web address] Address [address] [facility] [address] [place] [address] Care Team Providers Care Monotype Machinist Name Role Phone MORALES SANABRIABRICE Primary Care Provider Allergies Allergen (clinical drug [...] 90 days Active FreeStyle Marleen 14 Day [place] - as directed four times a day; Duration: 30 days 07/30/2022 Active amLODIPine Besylate 10 MG 1 tablet Orall y Once a day; Duration: 90 days Active Immunizations Vaccine Route Administration Date Status Comme nts COVID Unknown 11/21/2020 Administered Pfizer COVID Moderna Unknown 10/23/2020 Administered COVID Moderna Unknown 12/04/2021 Administered Flu Unknown 04/27/2023 Administered Flu High-Dose Unknown 05/13/2022 Administered Fluzone High Dose 40673 IM Intramuscular 05/02/2025 Admini stered Influenza (split), [...] 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 2 diabetes mellitus (387099851) Type 2 diabetes mellitus with unspecified complications (E11.8) Active confirmed Problem Mixed hyperlipidemia (037049831) Mixed hyperlipidemia (E78.2) Active confirmed Problem Sleep apnea (48739237) Sleep apnea, unspecified (G47.30) Active confirmed Problem Glaucoma (88427728) Unspecified glaucoma (H40.9) Active confirmed Problem Essential hypertension (99821163) Essential (primary) hypertension (I10) Active confirmed Problem Obstructive uropathy (8634722) Other obstructive and reflux uropathy (N13.8) Active confirmed Vital Signs Heart Rate 72 /min 05/02/2025 Temperature 97.9 degrees Fahrenheit 05/02/2025 Blood pressure diastolic 68 mm Hg 05/02/2025 Oximetry 96 % 05/02/2025 Height 67 in 05/02/2025 Blood pressure systolic 110 mm Hg 05/02/2025 Weight 206.2 lbs 05/02/2025 BMI 32.29 kg/m2 05/02/2025 Encounters Encounter Location Date Provider Diagnosis [facility] [address] [facility] [address] [place] [address] 10/24/2024 BABS SANABRIA Type 2 diabetes mani itus with unspecified complications E11.8 ; Encounter for general adult medical examination without abnormal findings Z00.00 ; Essential (primary) hypertension I10 ; Mixed hyperlipidemia E78.2 ; Sleep apnea, unspecified G47.30 and Encounter for screening for malignant neoplasm of prostate Z12.5 [facility] [address] [facility] [address] [place] [address] 05/02/2025 BABS SANABRIA Type 2 diabetes mani itus with unspecified complications E11.8 ; Essential (primary) hypertension I10 ; Mixed hyperlipidemia E78.2 ; Sleep apnea, unspecified G47.30 and Encounter for immunization Z23 [facility] [address] [facility] [address] [place] [address] 07/11/2024 [facility] [address] [facility] [address] [place] [address] 08/19/2024 BR[facility] [address] [facility] [address] [place] [address] 08/19/2024 BABS SANABRIA Postnasal drip R09.8 2 [facility] [address] [facility] [address] [place] [address] 08/26/2024 [facility] [address] [facility] [address] [place] [address] 08/30/2024 [facility] [address] [facility] [address] [place] [address] 09/27/2024 [facility] [address] [facility] [address] [place] [address] 10/04/2024 [facility] [address] [facility] [address] [place] [address] 10/21/2024 [facility] Assessments Encounter Date Diagnosis (ICD [...] lisinopril 40 mg daily. He is seen plastic tubing insulation supervisor in the past 1 year. Foot [...] lisinopril 40 mg daily. He is seen plastic tubing insulation supervisor in the past 1 year. Foot [...] lisinopril 40 mg daily. He is seen plastic tubing insulation supervisor in the past 1 year. Foot [...] lisinopril 40 mg daily. He is seen plastic tubing insulation supervisor in the past 1 year. Foot [...] lisinopril 40 mg daily. He is seen plastic tubing insulation supervisor in the past 1 year. Foot [...] lisinopril 40 mg daily. He is seen plastic tubing insulation supervisor in the past 1 year. Foot [...] lisinopril 40 mg daily. He is seen plastic tubing insulation supervisor in the past 1 year. Foot [...] lisinopril 40 mg daily. He is seen plastic tubing insulation supervisor in the past 1 year. Foot [...] lisinopril 40 mg daily. He is seen plastic tubing insulation supervisor in the past 1 year. Foot [...] lisinopril 40 mg daily. He is seen plastic tubing insulation supervisor in the past 1 year. Foot [...] lisinopril 40 mg daily. He is seen plastic tubing insulation supervisor in the past 1 year. Foot [...] A1C WITH EST GLUCOSE 01/08/20 LIPID PANEL 06/15/2023 LIPID PANEL 01/07/2023 MICROALBUMIN, URINE 06/15/2023 MICROALBUMIN, URINE 01/07/2023 PSA, SCREEN 06/25/2022 PSA, SCREEN 01/07/2023 CBC 07/24/2022 COMPREHENSIVE METABOLIC PANEL 07/24/2022 LIPID PROFILE 07/24/2022 PROSTATIC SPECIFIC ANTIGEN 07/24/2022 MICROSCOPIC, URINE 07/24/2022 Albumin/Creatinine Ratio,[id number] Comp. Metabolic Panel [id number] 2023 Hemoglobin A1c 01/12/2024 Future Test Test Name Order Date Hemoglobin [id number] 05/02/2025 Albumin/Creatinine Ratio,Urine-[id number] Lipid [id number] 05/02/2025 Comp. Metabolic Panel [id number] 2024 Next Appt Details Provider Name:Fanny bentley, 10/26/2025 02:00:00 PM, [address] [place] [address], [id number], Insurance Providers Payer Name Payer Address Payer Phone Subscriber Number Group Number Insured Name Patient Relationship to Insured Coverage Start Date Coverage End Date Medicare [address] [place] [phone] [id number] Don Myles Self - patient is the insured [employer] [address] [address] [place] [address] [id number] Don Myles Self - patient is the insured Medical (General) History Medical History History ICD Code Hypertension Hyperlipidemia DM type II he sees [facility] at [place] Glaucoma cataracts Surgical History Surgery Date(Month/Year) Neck surgery by Dr Tessie chirinos laser eye surgery Hospitalization History Reason Date(Month/Year) surgery
== END 2025-06-20 16:18 | disposition home or self-care (01) ==
LOC: HO.ENCR 15:40
PROVIDERS: PCP Hospitalist; Visit Provider Registered Nurse Diabetes Educator
DX: E11.65 Type 2 diabetes mellitus with hyperglycemia (principal)

== ENCOUNTER → 2025-06-20 15:40 | Outpatient (BNVA) | payer MEDICARE, OTHER, SELFPAY | PROVIDERS: PCP Hospitalist; Visit Provider Registered Nurse Diabetes Educator | DX: E11.65 Type 2 diabetes mellitus with hyperglycemia (principal) | CPT/HCPCS: 99211 ==

== ENCOUNTER 2025-06-23 14:06 | Outpatient (AMB) | payer MEDICARE, OTHER, SELFPAY ==
--- NOTE | 2025-06-23 14:22 | A.OFFVIS_ITS ---
Vital Signs 06/23/25 14:23 Height 5 ft 8 in Weight 209 lb 3.499 oz BMI 31.8 BP 102/62 Blood Pressure Location Lt brachial Position Sitting Pulse 62 Pulse Source Pulse Oximeter Pulse Oximetry (%) 95 Oxygen Delivery Method Room Air Intake Visit Reasons: Type II Diabetes Intake Note: Patient presents today for a follow-up for Type 2 Diabetes Mellitus: Last Diabetic eye exam was on: October of this past year. Last Podiatry exam was on: Does not see a English Faculty Member Most recent HbA1c:? 8.1%, 04/29/2025 Random Glucose-202? ?mg/dL, Today.? Client Director Required: No Accompanied by: Self / Same As Patient Allergies No Known Allergies Allergy (Verified 06/23/25 14:27) Medication List - Last Reconciled 06/23/25 by TONY Dinh amlodipine 10 mg PO DAILY bolus insulin pump, 200 unit (CeQur Simplicity) As directed chlorthalidone 25 mg PO DAILY diabetic supplies, miscellan. (Ce[employer]ur Simplicity Research And Development Scientist) As directed empagliflozin (Jardiance) 20 mg PO DAILY fluticasone propionate 50 mcg/actuation 1 spray intranasal DAILY FreeStyle Marleen 3 Sensor (blood-glucose sensor) every 15 days for continous glucose readings NS insulin lispro (Humalog KwikPen (U-100) Insulin) subcutaneously daily; Take 6 units before breakfast, 12 units before lunch and 6 units before dinner insulin lispro (Humalog U-100 Insulin) subcutaneously use as directed; administer 6 units before breakfast, 12 units before lunch and 6 units before dinner via Cequr device. Lantus Solostar U-100 Insulin (insulin glargine) 42 units (0.42 mL) subcut QPM 90 days NS lisinopril 40 mg PO DAILY metformin 1,000 mg PO BID pen needle, diabetic As directed bid simvastatin 20 mg PO BEDTIME tamsulosin (Flomax) 0.4 mg PO DAILY timolol maleate 0.5% 1 drp ophthalmic (eye) DAILY HPI Comments Details: 70-year-old male with a past medical history of type 2 diabetes, obesity, hypertension and hyperlipidemia presents for diabetic management. He was diagnosed with type 2 diabetes at age [age] years old. Hemoglobin A1c 8.1% 04/29/2025. I reviewed his CGM data for the past 2 weeks Average glucose 175 G MD 7.5% Very high 10% High 29% Target range 61% 0% hypoglycemia My interpretation is that he has hyperglycemia that peaks mid day and hyperglycemia after dinner. He saw JACKLYN Gore, and he wants to try Cequr so I submitted the prescriptions yesterday. Current medications: Lantus 42 units nightly He is taking 5 or 6 units of Humalog before his coffee when he gets up. He eats his largest meal which is lunch at 10:30am and then he will have a snack around noon, and he does not administer his 12 units of Humalog until the snack. He administers 4 units before dinner. Jardiance 25 mg daily and Metformin 1000 mg twice daily. Past medications: Trulicity discontinued after episode of pancreatitis in 2023. Actos discontinued due to concerns over possible link to bladder cancer. Glimepiride discontinued since he is on basal bolus insulin. Complications: No known complications. Hyperlipidemia is treated with a statin. Hypertension is treated with lisinopril, chlorthalidone and amlodipine. His blood pressures have been running low. He had an episode last week where after he got up in the morning to go to the bathroom he felt very dizzy. He sent a message to his primary care provider. He is currently taking amlodipine 10 mg, lisinopril 40 mg and half of chlorthalidone 25 mg tablet. Denies chest pain or shortness of breath. He endorses lightheadedness when he stands up quickly. ROS: Constitutional: No unexplained weight loss, fever, chills, fatigue or night sweats. Eyes: No vision changes Respiratory: No shortness of breath Cardiovascular: No chest pain Neurologic: No headache, syncope, numbness or tingling Endocrine: No cold or heat intolerance. No polyuria or polydipsia.. Physical exam: Constitutional: Alert, in no distress. Neck: Supple, Full range of motion. No lymphadenopathy. No palpable thyroid masses. Respiratory: Clear to auscultation. Cardiovascular: S1 S2 regular. No murmurs. [facility] Medical History Essential hypertension Obesity (BMI 30.0-34.9) Uncontrolled type 2 diabetes mellitus with hyperglycemia Pancreatitis Sleep apnea BPH (benign prostatic hyperplasia) Hx of cataract Tubular adenoma Diverticulosis Internal hemorrhoids without complication Glaucoma Diabetes mellitus, type II Hyperlipidemia HTN (hypertension) Surgical History Hx of tonsillectomy H/O neck surgery Hx of colonoscopy History of surgical procedure on eye proper using laser Family History Mother HTN (hypertension) High cholesterol Diabetes Pacemaker Social History Household Members: Significant Other Alcohol intake: never Patient Tobacco Use Status: Never used Tobacco Physical Exam Vital Signs: Last Vital Signs Pulse 62 06/23/25 14:23 BP 102/62 06/23/25 14:23 Pulse Ox 95 06/23/25 14:23 Oxygen Delivery Method Room Air 06/23/25 14:23 BMI result Body Mass Index 31.8 Office Procedures Glucose Monitoring Details Details: See [facility] [address] - Glucose monitoring, continuous-physician I&R Procedure code (CPT) selection complete Results Reviewed Results Reviewed: Laboratory Last Values Glucose (Clinic) 202 mg/dL (60-115) H 06/23/25 14:37 Laboratory Tests 04/29/25 09:40 Creatinine 1.12 Estimated GFR > 60 Hemoglobin A1c % 8.1 H AST 26 ALT 25 Triglycerides 191 H Cholesterol 135 LDL Cholesterol, Calc 65 HDL Cholesterol 32 L Urine Creatinine 117.32 Urine Microalbumin 7.0 Microalb/Creat Ratio 5.9 Assessment & Plan Assessment & Plan (1) Uncontrolled type 2 diabetes mellitus with hyperglycemia: Code(s): E11.65 - Type 2 diabetes mellitus with hyperglycemia Category: Medical (2) Obesity (BMI 30.0-34.9): Code(s): E66.811 - Obesity, class 1 Category: Medical (3) Essential hypertension: Code(s): I10 - Essential (primary) hypertension Category: Medical (4) Hyperlipidemia: Code(s): E78.5 - Hyperlipidemia, unspecified Category: Medical Qualifiers: Hyperlipidemia type: mixed hyperlipidemia Qualified Code(s): E78.2 - Mixed hyperlipidemia Plan In summary this is a 70-year-old male with suboptimally controlled type 2 diabetes on his current regimen. Continue Lantus 42 units nightly Take 6 units of humalog before coffee in the morning when you wake up, take 12 units before your lunch that you eat at 10:30am and increase to 6 units before dinner. If your blood sugar after dinner is still over 180, you can increase to 8 units before dinner. Continue Jardiance 25 mg daily and Metformin 1000 mg twice daily. If you experience low blood sugar (under 70), treat this by eating a chewable fruit candy like skittles or jelly beans (about 8 pieces), 4 ounces (1/2 cup) of fruit juice (not diet), 1 tablespoon of honey or 4 glucose tablets. If your blood sugar is under 50, take double the amount of one of the above. Recheck your blood sugar in 15 minutes. Patient says he has glucometer, lancets and test strips as a backup to his sensor. Hypertension is controlled. Continue current regimen. Recommended avoidance of carbohydrates and sugars for triglycerides. Continue simvastatin. LDL at goal. Follow up in 6 weeks for type 2 diabetes. Orders: Orders AMB Glucose Monitoring Today E11.9 - Type 2 diabetes mellitus without complications Medications: Changed From insulin lispro (Humalog KwikPen (U-100) Insulin) Take 4 units before breakfast, 12 units before lunch and 4 units before dinner. 10 units (0.1 mL) subcut DAILY 15 mL 5RF To insulin lispro (Humalog KwikPen (U-100) Insulin) subcutaneously daily; Take 6 units before breakfast, 12 units before lunch and 6 units before dinner From insulin lispro (Humalog U-100 Insulin) subcutaneously use as directed; administer 4 units before breakfast, 12 units before lunch and 4 units before dinner via Cequr device. 3 mL 5RF To insulin lispro (Humalog U-100 Insulin) subcutaneously use as directed; administer 6 units before breakfast, 12 units before lunch and 6 units before dinner via Cequr device. Patient Instructions: Current medications: Continue Lantus 42 units nightly Take 6 units of humalog before coffee in the morning when you wake up, take 12 units before your lunch that you eat at 10:30am and increase to 6 units before dinner. If your blood sugar after dinner is still over 180, you can increase 8 units before dinner. Continue Jardiance 25 mg daily and Metformin 1000 mg twice daily. Coding Level of Care Code Est Pt Level 4 (07903) Diagnoses Uncontrolled type 2 diabetes mellitus with hyperglycemia E11.65 Obesity (BMI 30.0-34.9) E66.811 Essential hypertension I10 Mixed hyperlipidemia E78.2 Hyperlipidemia type: mixed hyperlipidemia CPT Codes Details - CPT: 39134 - Glucose monitoring, continuous-physician I&R ([id number])
[2025-06-23 14:23] VITALS: BP 102/62; PULSE 62; O2SAT 95; BMI 31.8
[2025-06-23 14:43] LABS: Glucose, Whole Blood 202 mg/dL (60-115)
--- OUTSIDE RECORDS SUMMARY | 2025-06-23 20:59 | XMS_ITS | Patient Health Record ---
Author Organization [employer] Address [address] [facility] [address] [place] [address] Care Team Providers Care Rangeland Management Specialist Name Role Phone ELLY BRICE Primary Care Provider Fanny Pelaez Unavailable [phone] Allergies Allergen (clinical drug ingredient) Drug/Non Drug [...] 90 days Active FreeStyle Marleen 14 Day [place] - as directed four times a day; Duration: 30 days 07/30/2022 Active amLODIPine Besylate 10 MG 1 tablet Orall y Once a day; Duration: 90 days Active Immunizations Vaccine Route Administration Date Status Comme nts COVID Unknown 11/21/2020 Administered Pfizer COVID Moderna Unknown 10/23/2020 Administered COVID Moderna Unknown 12/04/2021 Administered Flu Unknown 04/27/2023 Administered Flu High-Dose Unknown 05/13/2022 Administered Fluzone High Dose 29239 IM Intramuscular 05/02/2025 Admini stered Influenza (split), [...] 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 2 diabetes mellitus (099893321) Type 2 diabetes mellitus with unspecified complications (E11.8) Active confirmed Problem Mixed hyperlipidemia (522660037) Mixed hyperlipidemia (E78.2) Active confirmed Problem Sleep apnea (11376015) Sleep apnea, unspecified (G47.30) Active confirmed Problem Glaucoma (87205837) Unspecified glaucoma (H40.9) Active confirmed Problem Essential hypertension (48673225) Essential (primary) hypertension (I10) Active confirmed Problem Obstructive uropathy (9138350) Other obstructive and reflux uropathy (N13.8) Active confirmed Vital Signs Heart Rate 72 /min 05/02/2025 Temperature 97.9 degrees Fahrenheit 05/02/2025 Blood pressure diastolic 68 mm Hg 05/02/2025 Oximetry 96 % 05/02/2025 Height 67 in 05/02/2025 Blood pressure systolic 110 mm Hg 05/02/2025 Weight 206.2 lbs 05/02/2025 BMI 32.29 kg/m2 05/02/2025 Encounters Encounter Location Date Provider Diagnosis [address] [place] [address] 10/24/2024 BRICE GUL Type 2 diabetes mellitus with unspecified complications E11.8 ; Encounter for general adult medical examination without abnormal findings Z00.00 ; Essential (primary) hypertension I10 ; Mixed hyperlipidemia E78.2 ; Sleep apnea, unspecified G47.30 and Encounter for screening for malignant neoplasm of prostate Z12.[address] [place] [address] 05/02/2025 BABS BETTENCOURTL Type 2 diabetes mellitus with unspecified complications E11.8 ; Essential (primary) hypertension I10 ; Mixed hyperlipidemia E78.2 ; Sleep apnea, unspecified G47.30 and Encounter for immunization Z23 [address] [place] [address] 06/23/[address] [place] [address] 07/11/[address] [place] [address] 08/19/[address] [place] [address] 08/19/2024 BABS SANABRIA Postnasal drip R09.[address] [place] [address] 08/26/[address] [place] [address] 08/30/2024 [facility] [address] [facility] [address] [place] [address] 09/27/2024 [facility] [address] [facility] [address] [place] [address] 10/04/2024 [facility] [address] [facility] [address] [place] [address] 10/21/2024 [facility] Assessments Encounter Date Diagnosis (ICD Code) Assessment Notes Treatment Notes Treatment Clinical Notes Section Notes 08/19/2024 Postnasal drip (ICD-10 - R09.82) 05/02/2025 Type 2 diabetes mellitus with unspecified [...] lisinopril 40 mg daily. He is seen electronic news gathering editor in the past 1 year. Foot care [...] lisinopril 40 mg daily. He is seen electronic news gathering editor in the past 1 year. Foot care [...] Gracie Myles is his healthcare proxy. 10/24/2024 Type 2 diabetes mellitus with unspecified [...] lisinopril 40 mg daily. He is seen electronic news gathering editor in the past 1 year. Foot care [...] lisinopril 40 mg daily. He is seen electronic news gathering editor in the past 1 year. Foot care [...] lisinopril 40 mg daily. He is seen electronic news gathering editor in the past 1 year. Foot care [...] and Gracie Shar is his healthcare proxy. 05/02/2025 Mixed hyperlipidemia [...] lisinopril 40 mg daily. He is seen electronic news gathering editor in the past 1 year. Foot care [...] and Gracie Shar is his healthcare proxy. 05/02/2025 Sleep apnea, [...] lisinopril 40 mg daily. He is seen electronic news gathering editor in the past 1 year. Foot care [...] lisinopril 40 mg daily. He is seen electronic news gathering editor in the past 1 year. Foot care [...] lisinopril 40 mg daily. He is seen electronic news gathering editor in the past 1 year. Foot care [...] lisinopril 40 mg daily. He is seen electronic news gathering editor in the past 1 year. Foot care [...] lisinopril 40 mg daily. He is seen electronic news gathering editor in the past 1 year. Foot care [...] 06/15/2023 HEMOGLOBIN A1C WITH EST GLUCOSE 06/25/20 HEMOGLOBIN A1C WITH EST GLUCOSE 01/08/20 LIPID PANEL 06/15/2023 LIPID PANEL 01/07/2023 MICROALBUMIN, URINE 06/15/2023 MICROALBUMIN, URINE 01/07/2023 PSA, SCREEN 06/25/2022 PSA, SCREEN 01/07/2023 CBC 07/24/2022 COMPREHENSIVE METABOLIC PANEL 07/24/2022 LIPID PROFILE 07/24/2022 PROSTATIC SPECIFIC ANTIGEN 07/24/2022 MICROSCOPIC, URINE 07/24/2022 Albumin/Creatinine Ratio,[id number] Comp. Metabolic Panel [id number] 2023 Hemoglobin A1c 01/12/2024 Future Test Test Name Order Date Hemoglobin [id number] 05/02/2025 Albumin/Creatinine Ratio,[id number] Lipid Panel-[id number] 05/02/2025 Comp. Metabolic Panel [id number] 2024 Next Appt Details Provider Name:Fanny bentley, 10/26/2025 02:00:00 PM, [address] [place] [address], [place], [address], Insurance Providers Payer Name Payer Address Payer Phone Subscriber Number Group Number Insured Name Patient Relationship to Insured Coverage Start Date Coverage End Date Medicare [address] [place] [phone] [id number] Don Myles Self - patient is the insured [employer] [address] [address] [place] [address] [id number] Don Myles Self - patient is the insured Medical (General) History Medical History History ICD Code Hypertension Hyperlipidemia DM type II he sees Jackie Bennett nurse [facility] [place] Glaucoma cataracts Surgical History Surgery Date(Month/Year) Neck surgery by Dr Tessie chirinos laser eye surgery Hospitalization History Reason Date(Month/Year) surgery
== END 2025-06-23 15:09 | disposition home or self-care (01) ==
LOC: HO.ENCR 14:06
PROVIDERS: PCP Hospitalist; Visit Provider Physician Assistant Medical
DX: E11.65 Type 2 diabetes mellitus with hyperglycemia (principal); E66.811 Obesity, class 1; I10 Essential (primary) hypertension; E78.2 Mixed hyperlipidemia

== ENCOUNTER → 2025-06-23 14:06 | Outpatient (BNVA) | payer MEDICARE, OTHER, SELFPAY | PROVIDERS: PCP Hospitalist; Visit Provider Physician Assistant Medical | DX: E11.65 Type 2 diabetes mellitus with hyperglycemia (principal); Z79.4 Long term (current) use of insulin; Z79.84 Long term (current) use of oral hypoglycemic drugs; E66.9 Obesity, unspecified; Z68.31 Body mass index [BMI] 31.0-31.9, adult; I10 Essential (primary) hypertension; E78.2 Mixed hyperlipidemia | CPT/HCPCS: 82947; 99212 ==